=== PATIENT | female | born 1965 | race Two or more races ===

== ENCOUNTER 2017-04-08 16:51 | Inpatient (IN) | payer SELFPAY ==
--- NOTE | 2017-04-08 17:06 | CPEKG ---
Heart Rate: 78 RR Interval: 769 P-R Interval: 176 QRSD Interval: 92 QT Interval: 416 QTC Interval: 474 P [place]: 19 QRS [place]: 21 T Wave [place]: 70 EKG Severity - ABNORMAL ECG - EKG Impression: SINUS RHYTHM EKG Impression: PROBABLE LEFT ATRIAL ABNORMALITY EKG Impression: LVH WITH SECONDARY REPOLARIZATION ABNORMALITY EKG Impression: ANTERIOR ST ELEVATION, PROBABLY DUE TO LVH Electronically Signed By: Johnathan Murray 08-Apr-2017 19:01:20
[2017-04-08 17:09] LABS: % IMMATURE GRANULYOCYTES 0.3 % (0.0-1.1); ABSOLUTE IMMATURE GRANULOCYTES 0.03 10^3/uL (0.00-0.10); ADD DIFF? NO; ADD MORPH? NO; ADD SCAN? NO; ATYPICAL LYMPHOCYTE FLAG 0 (0-99); FRAGMENT RBC FLAG 0 (0-99); HEMATOCRIT 47.1 % (38.0-47.0); HEMOGLOBIN 15.3 g/dL (12.6-16.3); LEFT SHIFT FLG 0 (0-99); LIPEMIA HEMOLYSIS FLAG 80 (0-99); MEAN CELL HEMOGLOBIN 25.5 pg (27.9-34.1); MEAN CELL HEMOGLOBIN CONCENTR. 32.5 g/dL (32.4-36.7); MEAN CELL VOLUME 78.4 fL (81.5-99.8); MEAN PLATELET VOLUME 9.8 fL (8.7-11.7); PLATELET CLUMPS FLAG 10 (0-99); PLATELET COUNT 272 10^3/uL (150-400); RED BLOOD CELL COUNT 6.01 10^6/uL (4.18-5.33); RED CELL DISTRIBUTION WIDTH 16.1 % (11.5-15.2)
[2017-04-08] MEDS ORDERED: niCARdipine/NACL/200 ML BAG IV ONE (17:10)
[2017-04-08] MEDS: niCARdipine/NACL 200 ML IV SCH ×4 (17:22→21:54)
[2017-04-08 17:34] LABS: INR 0.92 (0.83-1.16); PROTIME(PATIENT) 12.6 SEC (12.0-15.0)
[2017-04-08] MEDS ORDERED: PROPOFOL/EMULSION 1,000 MG/100 ML BOTTLE IV ONE ×2 (17:34→18:29)
--- NOTE | 2017-04-08 17:38 | EDPHY ---
H & P Stated Complaint: stroke alert Time Seen by Provider: 04/08/17 17:00 HPI/ROS: CHIEF COMPLAINT: Stroke alert HISTORY OF PRESENT ILLNESS: The patient presents the ED as a stroke alert. She has a history of hypertension and does not take medications for this condition. Approximately 4:15pm the patient developed acute right facial numbness, right arm weakness and right leg weakness. She developed blurry vision according to her son. She then developed a severe headache and intractable vomiting. The patient is brought in emergently by paramedics. In the emergency department the patient arrives and is nonverbal. 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 REVIEW OF SYSTEMS: Comprehensive 10 point review of systems unobtainable Source: Patient, Family - Personal History LMP (Females 10-55): Unknown Current Tetanus/Diphtheria Vaccine: Unsure Current Tetanus Diphtheria and Acellular Pertussis (TDAP): Unsure - Medical/Surgical History Other PMH: HTN - Social History Smoking Status: Unknown if ever smoked - Physical Exam Exam: General Appearance: Sonorous respirations, arousable Eyes: Pupils equal and round no pallor or injection ENT, Mouth: Mucous membranes moist Respiratory: There are no retractions, lungs are clear to auscultation Cardiovascular: Regular rate and rhythm Gastrointestinal: Abdomen is soft and nontender, no masses, bowel sounds normal Neurological: Dense right meir paresis, follows commands, 5/5 digital press operator strength left arm, 5/5 left leg would not are flexion and dorsiflexion, unable to assess cranial nerves Skin: Warm and dry, no rashes Musculoskeletal: Neck is supple nontender Extremities: symmetrical, full range of motion Constitutional: Initial Vital Signs Temperature (C) 37.0 C 04/08/17 17:00 Heart Rate 86 04/08/17 17:00 Respiratory Rate 20 04/08/17 17:00 Blood Pressure 223/127 H 04/08/17 17:00 O2 Sat (%) 99 04/08/17 17:00 O2 Delivery Mode Ventilator O2 (L/minute) 10 Allergies/Adverse Reactions: No Known Allergies Allergy (Verified 04/08/17 17:00) Home Medications: Medication Instructions Recorded NK [No Known Home Meds] 04/08/17 Medical Decision Making - Diagnostics Imaging Results: Imaging Impressions Head CT 04/08/17 16:53 Impression: Large brainstem hemorrhage. Results called and discussed with Johnathan Murray M.D. on 04/08/2017 at 17:20. Procedures: Procedure: RSI Intubation Indication for the procedure was airway protection in the setting of massive stroke. The patient was preoxygenated with 100% oxygen by face mask. The patient was sedated with etomidate and paralyzed with succinylcholine. The patient was orally endotracheally intubated under direct visualization with a 7.5 ETT. Tracheal intubation was confirmed with misting on the tube; breath sounds were auscultated equally bilaterally; appropriate color change with [place] CO2 detector, capnography waveform is appropriate, oxygen saturation after procedure is 100%. Chest X-ray shows ETT in good position. The procedure was performed by myself. Procedure: Arterial line placement. Indication: Continuous blood pressure monitoring. Risks, benefits, alternatives discussed with the family including but not limited to bleeding, infection, vascular injury, and collapsed lung and consent obtained. The area was anesthetized with 1% lidocaine. Left radial artery arterial catheter was placed by myself without complication. ED Course/Re-evaluation: The patient presents to the ED with an acute headache, vomiting and a dense right meir paresis. She was taken for a stat CT scan which demonstrates a brain stream hemorrhage. The patient is not a candidate for thrombolytics therapy based upon intracranial hemorrhage. She return to the emergency department. Consultation was obtained with Neurosurgery. The patient was seen by Dr. Fercho Knight. Per his request the patient was intubated. The patient had an arterial catheter placed by myself for marked hypertension. She was started on a nicardipine drip. The patient will be admitted to the intensive care unit for further monitoring. She is not a surgical candidate. Consultation was made with Dr. Jc from the hospitalist service. Consultation was made with Dr. Machuca from neurology. Critical Care Time: Critical care time exclusive of procedures and exclusive of the PA's time was 65 minutes, performed by myself, Johnathan Murray MD. Patient presents the ED with a life-threatening intracranial hemorrhage. She required emergent control of her blood pressure. She required consultation of Neurosurgery, Neurology and Internal Medicine. She will be admitted to the ICU for close observation. - Data Points Laboratory Results: Laboratory Results 04/08/17 16:58 04/08/17 16:58 04/08/17 04/08/17 04/08/17 16:58 16:58 16:58 WBC 10.78 10^3/uL H 10^3/uL (3.80-9.50) RBC 6.01 10^6/uL H 10^6/uL (4.18-5.33) Hgb 15.3 g/dL g/dL (12.6-16.3) POC Hgb Hct 47.1 % H % (38.0-47.0) POC Hct MCV 78.4 fL L fL (81.5-99.8) MCH 25.5 pg L pg (27.9-34.1) MCHC 32.5 g/dL g/dL (32.4-36.7) RDW 16.1 % H % (11.5-15.2) Plt Count 272 10^3/uL 10^3/uL (150-400) MPV 9.8 fL fL (8.7-11.7) Neut % (Auto) 42.1 % % (39.3-74.2) Lymph % (Auto) 45.6 % H % (15.0-45.0) [place] % (Auto) 9.7 % % (4.5-13.0) Eos % (Auto) 1.9 % % (0.6-7.6) Baso % (Auto) 0.4 % % (0.3-1.7) Nucleat RBC Rel Count 0.0 % % (0.0-0.2) Absolute Neuts (auto) 4.54 10^3/uL 10^3/uL (1.70-6.50) Absolute Lymphs (auto) 4.92 10^3/uL H 10^3/uL (1.00-3.00) Absolute Monos (auto) 1.05 10^3/uL H 10^3/uL (0.30-0.80) Absolute Eos (auto) 0.20 10^3/uL 10^3/uL (0.03-0.40) Absolute Basos (auto) 0.04 10^3/uL 10^3/uL (0.02-0.10) Absolute Nucleated RBC 0.00 10^3/uL 10^3/uL (0-0.01) Immature Gran % 0.3 % % (0.0-1.1) Immature Gran # 0.03 10^3/uL 10^3/uL (0.00-0.10) PT 12.6 SEC SEC (12.0-15.0) INR 0.92 (0.83-1.16) POC Sodium Sodium 143 mEq/L mEq/L (134-144) POC Potassium Potassium 3.2 mEq/L L mEq/L (3.5-5.2) POC Chloride Chloride 102 mEq/L mEq/L (97-110) Carbon Dioxide 25 mEq/l mEq/l (22-31) Anion Gap 16 mEq/L mEq/L (8-16) POC BUN BUN 13 mg/dL mg/dL (7-23) Creatinine 0.7 mg/dL mg/dL (0.6-1.0) POC Creatinine Estimated GFR > 60 Glucose 105 mg/dL H mg/dL (70-100) POC Glucose Calcium 9.7 mg/dL mg/dL (8.5-10.4) 04/08/17 16:49 WBC RBC Hgb POC Hgb 16.7 gm/dL H gm/dL (12.6-16.3) Hct POC Hct 49 % H % (38-47) MCV MCH MCHC RDW Plt Count MPV Neut % (Auto) Lymph % (Auto) [place] % (Auto) Eos % (Auto) Baso % (Auto) Nucleat RBC Rel Count Absolute Neuts (auto) Absolute Lymphs (auto) Absolute Monos (auto) Absolute Eos (auto) Absolute Basos (auto) Absolute Nucleated RBC Immature Gran % Immature Gran # PT INR POC Sodium 144 mEq/L mEq/L (134-144) Sodium POC Potassium 2.7 mEq/L L* mEq/L (3.3-5.0) Potassium POC Chloride 105 mEq/L mEq/L (97-110) Chloride Carbon Dioxide Anion Gap POC BUN 12 mg/dL mg/dL (7-23) BUN Creatinine POC Creatinine 0.6 mg/dL mg/dL (0.6-1.0) Estimated GFR Glucose POC Glucose 109 mg/dL H mg/dL (70-100) Calcium Medications Given: Nicardipine/Sodium Chloride (Cardene 0.1 Mg/Ml (Premix)) 200 mls @ 0 mls/hr IV CONT VIANEY; Titrate PRN Reason: Protocol Stop: 10/05/17 17:29 Last Admin: 04/08/17 18:44 Dose: 200 mls Propofol (Diprivan 10 Mg/Ml (Premix)) 100 mls @ 0 mls/hr IV CONT VIANEY; Titrate PRN Reason: Protocol Stop: 10/05/17 18:29 Last Admin: 04/08/17 18:32 Dose: 100 mls Discontinued Medications Etomidate (Etomidate) 20 mg IVP EDNOW ONE Stop: 04/08/17 18:13 Last Admin: 04/08/17 18:22 Dose: 20 mg Propofol (Diprivan) 40 mg IVP EDNOW ONE Stop: 04/08/17 18:31 Last Admin: 04/08/17 18:33 Dose: 40 mg Succinylcholine Chloride (Quelicin) 150 mg IVP EDNOW ONE Stop: 04/08/17 18:13 Last Admin: 04/08/17 18:23 Dose: 150 mg Succinylcholine Chloride (Quelicin) 100 mg IVP ONCE ONE Stop: 04/08/17 18:37 Last Admin: 04/08/17 18:40 Dose: 100 mg Point of Care Test Results: 04/08/17 16:49 POC Sodium 144 POC Potassium 2.7 L* POC Chloride 105 POC BUN 12 POC Creatinine 0.6 POC Glucose 109 H Departure - Departure Disposition: [facility] Inpatient Acute Clinical Impression: Acute cerebral hemorrhage Condition: Critical Referrals: Patient,NotPresent [Primary Care Provider] - As per Instructions NIH Stroke Scale Date of Exam: 04/08/17 Time of Exam: 17:08 Level of Consciousness: Alert LOC Questions: Answers None LOC Commands: Performes Neither Correct Best Gaze: Forced Deviation Motor Arm-Right: No Movement Motor Leg-Right: No Movement Best Language: Severe Aphasia Dysarthria: Severe Dysarthria Extinction and Inattention (Neglect): Profound Meir-inattention NIH Scale Score: 20
[2017-04-08 18:01] LABS: ANION GAP 16 mEq/L (8-16); CALCIUM 9.7 mg/dL (8.5-10.4); CARBON DIOXIDE 25 mEq/l (22-31); CHLORIDE 102 mEq/L (97-110); CREATININE 0.7 mg/dL (0.6-1.0); GLOMERULAR FILTRATION RATE > 60; GLUCOSE 105 mg/dL (70-100); POTASSIUM 3.2 mEq/L (3.5-5.2); SODIUM 143 mEq/L (134-144)
[2017-04-08] MEDS ORDERED: SUCCINYLCHOLINE CHLORIDE 200 MG/10 ML VIAL IVP ONE ×2 (18:12→18:36)
[2017-04-08] MEDS ORDERED: ETOMIDATE 40 MG/20 ML INJ IVP ONE (18:12)
[2017-04-08] MEDS ORDERED: PROPOFOL 200 MG/20 ML VIAL IVP ONE (18:30)
[2017-04-08] MEDS ORDERED: PROPOFOL/EMULSION 100 ML IV SCH ×2 (18:30→20:09)
[2017-04-08] MEDS ORDERED: SUCCINYLCHOLINE CHLORIDE 200 MG/10 ML SYR IVP ONE (18:35)
[2017-04-08] MEDS ORDERED: ALTEPLASE 2 MG VIAL IVP PRN (18:45)
[2017-04-08] MEDS: LABETALOL HCL 5 MG/ML 20 ML MDV IVP PRN (19:45)
[2017-04-08 20:12] LABS: BASE EXCESS -2.9 mEq/L (-2.5-2.5); BICARBONATE 22 mEq/L (22-26); MEASURED OXYGEN SATURATION 96 % (92-95); PCO2 39 mmHg (34-38); PO2 89 mmHg (65-75); TCO2 23 mEq/L (23-27)
[2017-04-08 20:13] LABS: END TIDAL CO2 62; P/F RATIO 223 RATIO; PATIENT RATE 24; PRESSURE SUPPORT 10; SIMV YES
[2017-04-08 20:14] LABS: O2 CONCENTRATIION 40 % (0-100)
--- NOTE | 2017-04-08 20:21 | GHP ---
[f rep st] HISTORY AND PHYSICAL DATE OF ADMISSION: 04/08/2017 CHIEF COMPLAINT: The patient arrived as a stroke alert. HISTORY OF PRESENT ILLNESS: The patient is a 51-year-old female with a history of hypertension, not currently on antihypertensive medication, presented to the emergency department via EMS after developing sudden right facial numbness and right upper and lower extremity weakness. The onset of her symptoms was at 4: 15 p.m. She also reported blurred vision followed by severe headache with repeated vomiting. When the patient arrived in the emergency department, she was nonverbal though did follow some basic commands. She was noted to have a dense right hemiparesis. Her condition deteriorated, she was no longer able to protect her airway and was thus intubated. Her blood pressure on arrival was 223/127. Stat CT head was performed, which revealed a large brainstem hemorrhage. She was started on a nicardipine drip in the emergency department. Neurosurgery consultation was obtained and evaluated the patient in the ED. She is admitted to the intensive care unit for ongoing management. PAST MEDICAL HISTORY: Hypertension. MEDICATIONS: None. ALLERGIES: No known drug allergies. SOCIAL HISTORY: The patient was previously living independently with her daughter. Her tobacco and alcohol habits are unknown as she is intubated at the time of my exam. REVIEW OF SYSTEMS: Unobtainable due to patient being intubated. PHYSICAL EXAMINATION: VITAL SIGNS: Temperature on arrival was 37 degrees, current blood pressure 148/85, heart rate 103, she is ventilated 100% FiO2. HEENT: Head is atraumatic, normocephalic. Pupils are equal, round, and reactive. Oropharynx is clear. Mucous membranes are moist. NECK: Supple. There is no JVD. HEART: Regular rate and rhythm. LUNGS: Clear to auscultation bilaterally. ABDOMEN: Soft, nondistended, nontender. NEUROLOGIC : The patient does not follow commands. She is not moving her extremities, though she is sedated, intubated, and ventilated. Please see emergency department documentation for her neuro exam on arrival prior to intubation. SKIN: Warm. EXTREMITIES: Well perfused without cyanosis, clubbing, or edema. LABORATORY DATA: CBC reveals a white blood cell count of 10.7, hematocrit 47.1 , platelets 272. INR 0.92. Basic metabolic panel is remarkable for a potassium of 3.2, blood sugar 105. Head CT shows a large brainstem hemorrhage resulting in expansion of the brainstem and extension of the hemorrhage into the left cerebellar peduncle. No significant subarachnoid blood. There is effacement of the cerebral aqueduct. There is evidence of small vessel disease and a probable lacunar type infarct in the right basal ganglia. The brainstem hemorrhage results in enlargement of the brainstem with associated effacement of the perimesencephalic cisterns. EKG shows normal sinus rhythm with probable left ventricular hypertrophy, ST elevations in V1, V2, may represent J-point elevation versus repolarization abnormality from LVH. Chest x-ray is personally reviewed and interpreted, shows an ET tube just above the heber, with low lung volumes and increased interstitial markings. ASSESSMENT AND PLAN: The patient is a 51-year-old female with a history of hypertension, which is not treated with medications, who presents to the emergency department with hemorrhagic stroke requiring intubation and mechanical ventilation. 1. Intracranial hemorrhage: NIHSS 20. Most likely hemorrhagic stroke in the setting of severe untreated hypertension. She is intubated and ventilated. Will check an ABG now. She presented with dense right-sided hemiparesis, aphasia, severe headache with vomiting. Urgent consultation with Neurosurgery was made. She is not a surgical candidate. Continue nicardipine drip with a goal SBP less than 140. I discussed the case with Dr. Enriquez, neurosurgeon. Will repeat her head CT at 9 p.m. along with CTA head and neck to be sure this is not a hemorrhagic conversion, though unlikely. The patient is at risk for developing hydrocephalus. MRI is ordered for the morning. Neurology consult was obtained and Dr. Machuca will see the patient. Frequent neuro checks, NPO, IVF 's. I discussed her poor prognosis with the family. 2. Hypertension, as above. Goal SBP is less than 140 per neurosurgery recommendations in the setting of intracerebral hemorrhage. Continue nicardipine drip. 3. Abnormal EKG. She has cardiomegaly on her chest x-ray and evidence of LVH on her EKG. We will check an echocardiogram in the morning and trend her troponins. 4. Deep venous thrombosis prophylaxis: Pharmacologic therapy is contraindicated in the setting of intracerebral hemorrhage. SCD's. CODE STATUS: Patient is full code. The family understands her condition is guarded and we may need to revisit her code status if she deteriorates. DISPOSITION: The patient is admitted to inpatient status. She will require greater than 48 hours hospitalization for ongoing management of her acute hemorrhagic stroke. 45 minutes of critical care time was spent [id number] at the bedside and coordinating care with specialists and emergency department physician, as well as discussion with family. /[id number]/MODL MTDD
[2017-04-08] MEDS: fentaNYL/NACL 100 ML IV SCH (20:25)
[2017-04-08] MEDS ORDERED: LIDOCAINE 2% JELLY 20 ML (UROJECT) ONE (20:33)
[2017-04-08] MEDS ORDERED: LIDOCAINE 2% JELLY 5 ML TUBE ONE (20:34)
[2017-04-08] MEDS ORDERED: IOPAMIDOL (ISOVUE 370) 100 ML BTL IV ONE (20:45)
--- NOTE | 2017-04-08 21:00 | POSTOPPROG ---
Post Op Note Date of Operation: 04/08/17 Surgeon: Leo Phelps Anesthesia: Local (Specify) (1% lidocaine) Pre-op Diagnosis: hemorragic CVA of brainstem Post-op Diagnosis: hemorragic CVA of brainstem Indication: inadequate venous access Procedure: placement of right subclavian triple lumen central line Findings: hemorragic CVA of brainstem Inf/Abcess present in the surg proc area at time of surgery?: No EBL: Minimal Total fluids administered: 500 cc bolus pre proceedure Complications: None. Line in good position on post procedure film without PTX
[2017-04-08] MEDS: NS W/ 20 KCl/L 1,000 ML IV SCH (21:49)
--- NOTE | 2017-04-08 21:56 | GCON ---
[f rep st] CONSULTATION HISTORY OF PRESENT ILLNESS: The patient is a 51-year-old female, who began to have sudden onset of r ight-sided weakness this afternoon about 2:00 p.m. Paramedics were called and she was brought immedi ately to the hospital. At the time of presentation to the hospital she was aphasic and only followin g some commands. The patient was given a head CT that showed spontaneous intracranial hemorrhage int o the brain stem. Per family, the patient does not normally see a doctor and has no past medical his tory that she is being treated for. PAST MEDICAL HISTORY: Includes hypertension. PAST SURGICAL HISTORY: No prior surgeries known. SOCIAL HISTORY: Patient lives with her daughter. Patient is actively employed. MEDICATIONS: Patient takes no daily medications. ALLERGIES: The patient has no known drug allergies. REVIEW OF SYSTEMS: Patient is unable to provide. NEUROLOGICAL PHYSICAL EXAM: Patient is alert, she opens her eyes spontaneously. She is not speaking . She flexion withdraws from pain and possibly follows some commands. GCS 9 or 10. The patient's p upils were equally reactive to light. She is not moving her right upper extremity. She voluntarily moves her bilateral lower extremities and her left upper extremity. Gag and cough reflex intact. LABS: Pertinent labs: Patient's platelets 272. Coags were PT 12.6, INR 0.92, normal. IMAGING: Head CT with a focal brainstem bleed and extension of the brainstem hemorrhage extending in to the left cerebellar peduncle. ASSESSMENT/PLAN: The patient is a 51-year-old female with untreated hypertension, systolic blood pre ssure 190 to 220 during the time of exam who presents with a spontaneous brainstem hemorrhage likely due to the hypertension. The patient's exam is quite good given the bleed. She is currently aphasic and not moving her right upper extremity and only following some commands. Neurosurgery recommends s trict systolic blood pressure control of less than 140, elevating the head greater than 30 degrees, c oag panels which were negative and intubation for possible protection of the airway as we anticipate as bleed progresses she may have difficulty with her airway. We recommend a repeat scan 4 hours after initial scan later this evening and we will continue to follow along. The patient will be admitted to the medicine service for control of her blood pressure. The patient was seen and discussed with Irene Knight. /[id number]/MODL
[2017-04-08] MEDS ORDERED: PROTOCOL POTASSIUM 1 DOSE MISC PRN (23:10)
[2017-04-08] MEDS ORDERED: PROTOCOL MAGNESIUM 1 DOSE IV PRN (23:10)
[2017-04-09 00:54] LABS: POTASSIUM 4.3 mEq/L (3.5-5.2)
[2017-04-09] MEDS: niCARdipine/NACL 200 ML IV SCH ×8 (01:23→22:32)
[2017-04-09] MEDS ORDERED: ETOMIDATE 40 MG/20 ML INJ ONE (02:01)
[2017-04-09 02:18] LABS: BASE EXCESS -4.8 mEq/L (-2.5-2.5); BICARBONATE 21 mEq/L (22-26); MEASURED OXYGEN SATURATION 97 % (92-95); PCO2 41 mmHg (34-38); PO2 94 mmHg (65-75); TCO2 22 mEq/L (23-27)
[2017-04-09 02:19] LABS: END TIDAL CO2 49; O2 CONCENTRATIION 40 % (0-100); P/F RATIO 235 RATIO; PATIENT RATE 14; PRESSURE SUPPORT 10
[2017-04-09 02:40] LABS: TROPONIN I 0.255 ng/mL (0.000-0.034)
--- NOTE | 2017-04-09 03:27 | GOP ---
[f rep st] OPERATIVE REPORT DATE OF OPERATION: 04/08/2017 SURGEON: Leo Phelps MD PREOPERATIVE DIAGNOSIS: Inadequate venous access for medications and vasoactive medications. POSTOPERATIVE DIAGNOSIS: Inadequate venous access for medications and vasoactive medications. PROCEDURE PERFORMED: Placement of a right subclavian central line. FINDINGS: Inadequate venous access for medications and vasoactive medications. INDICATIONS: Inadequate venous access for medications and vasoactive medications. DESCRIPTION OF PROCEDURE: The patient was currently intubated, so I spoke with her proxy who was her son. He gave consent for the procedure. A surgical time-out was carried out and agreed to by all m embers of the ICU team. The patient has been given a 500 cc normal saline bolus. Checking with a Do ppler, subclavian vein was full and should be easy to access. The patient's right chest and neck were carefully prepped with ChloraPrep. A 3-minute drying time wa s allowed. The skin was anesthetized with 1% Xylocaine. Second site for suturing the hub of the triple-lumen in place was also anesthetized. The patient was now placed in steep Trendelenburg. A 1st pass was slightly superficial and I did not enter the vein. A 2nd pass was slightly deeper and entered the vein immediately. The bevel was rot ated so drug was directed inferiorly. The guidewire passed without difficulty. Transient ectopy was noted. Guidewire was pulled back slightly. The needle was removed over the guidewire. The skin wa s carefully incised. A dilator was passed without difficulty. The preflushed triple-lumen catheter was now advanced over the guidewire. The blue and white hubs had been flushed. It was advanced to t he 13 cm stacy. The guidewire was removed. Venous return was noted. The hub was placed in the 3rd ( brown) lumen and was flushed with a small amount of lidocaine which was in an anesthetizing syringe. The triple-lumen was sutured in place. The hub was also sutured in place. A Biopatch was positioned . A Tegaderm was used. Chest x-ray was obtained which showed the line to be in good position. It also showed that there was no pneumothorax. The previously placed orogastric tube was curled in the proximal esophagus. An 18-Dominican orogastric tube was now passed. An x-ray will be obtained for confirmation of position. Good gurgling was note d in the stomach with installation of air. /[id number]/MODL
[2017-04-09] MEDS: NS W/ 20 KCl/L 1,000 ML IV SCH ×2 (04:50→10:07)
[2017-04-09 05:11] LABS: BASE EXCESS -4.1 mEq/L (-2.5-2.5); BICARBONATE 20 mEq/L (22-26); MEASURED OXYGEN SATURATION 98 % (92-95); PCO2 34 mmHg (34-38); PO2 110 mmHg (65-75); TCO2 21 mEq/L (23-27)
[2017-04-09 05:12] LABS: O2 CONCENTRATIION 40 % (0-100); P/F RATIO 275 RATIO; PATIENT RATE 16; PRESSURE SUPPORT 10; SIMV YES
[2017-04-09 05:14] LABS: % IMMATURE GRANULYOCYTES 0.2 % (0.0-1.1); ABSOLUTE IMMATURE GRANULOCYTES 0.02 10^3/uL (0.00-0.10); ADD DIFF? NO; ADD MORPH? NO; ADD SCAN? NO; ATYPICAL LYMPHOCYTE FLAG 0 (0-99); FRAGMENT RBC FLAG 0 (0-99); HEMATOCRIT 38.2 % (38.0-47.0); HEMOGLOBIN 12.4 g/dL (12.6-16.3); LEFT SHIFT FLG 0 (0-99); LIPEMIA HEMOLYSIS FLAG 80 (0-99); MEAN CELL HEMOGLOBIN 25.5 pg (27.9-34.1); MEAN CELL HEMOGLOBIN CONCENTR. 32.5 g/dL (32.4-36.7); MEAN CELL VOLUME 78.6 fL (81.5-99.8); MEAN PLATELET VOLUME 9.9 fL (8.7-11.7); PLATELET CLUMPS FLAG 0 (0-99); PLATELET COUNT 223 10^3/uL (150-400); RED BLOOD CELL COUNT 4.86 10^6/uL (4.18-5.33); RED CELL DISTRIBUTION WIDTH 15.6 % (11.5-15.2)
[2017-04-09 05:31] LABS: ANION GAP 14 mEq/L (8-16); CALCIUM 8.3 mg/dL (8.5-10.4); CARBON DIOXIDE 20 mEq/l (22-31); CHLORIDE 111 mEq/L (97-110); CREATININE 0.8 mg/dL (0.6-1.0); GLOMERULAR FILTRATION RATE > 60; GLUCOSE 118 mg/dL (70-100); MAGNESIUM 1.9 mg/dL (1.6-2.3); POTASSIUM 4.5 mEq/L (3.5-5.2); SODIUM 145 mEq/L (134-144)
--- NOTE | 2017-04-09 07:18 | NEUSURGPN ---
Assessment/Plan: Assessment: 51 yo female that is admitted to IM with HTN and ICB to brainstem Plan: -pt with initial presentation of elevated blood pressures in the 180-220 range with a brain stem bleed -CT initially to 2nd CT shows some progression of bleed -no new events overnight -continue to keep SBP less than 140 -elevate HOB -pt moving more this am -intubated and sedated -following commands to UE/LE and will open eyes spontaneously to verbal -d/w Dr Knight -pending MRI of the brain today -will get repeat CT in am -warning signs given -call with any questions or concerns Subjective: Awake to verbal, no new events overnight. Pt with some recent elevated SBP-RN working on controlling this with Cardene. Family updated at bedside Objective: awake and alert to verbal follows commands with opens eyes, carpenter/labor bilaterally with L>R, wiggles toes bilaterally with L>R E: OU 4 mm reactive M: carpenter/labor to UE/wiggles toes V: nonverbal-intubated Neuro Check Frequency: per ordered Urinary Catheter in Place: Yes Urinary Catheter Indication: Other (Use Comment) (intubated and sedated) Catheter Insertion Date: 04/08/17 - Physician Discussed Patient with DrGabriel: Other Patient Seen by Dr.: Other ([place]) Neurosurgery Physical Exam - Vitals, I&O, Labs I and O 04/08/17 04/09/17 04/10/17 05:59 05:59 05:59 Intake Total 2629 Output Total 1150 Balance 1479 Weight 94.8 kg Intake: IV Infused (ml) 2629 NS W/ 20 KCl/L 1,000 ml @ 1272 125 mls/hr IV CONT VIANEY Rx#:[id number] Propofol/Emulsion 100 ml 150 @ Titrate IV CONT VIANEY Rx# :[id number] fentaNYL/NACL 100 ml @ 52 Per Protocol IV CONT VIANEY Rx#:[id number] niCARdipine/NACL 200 ml @ 955 Titrate IV CONT VIANEY Rx#: [id number] Output: Urine (ml) 950 Catheter 950 OG Tube Output (ml) 200 Large Bore (>12 Yemeni) 200 Non-weighted 18 [place] Vital Signs Temp Pulse Resp BP Pulse Ox 36.6 C 70 16 135/58 H 100 04/09/17 06:00 04/09/17 06:00 04/09/17 06:00 04/09/17 06:00 04/09/17 06:00 Laboratory Results 04/09/17 05:00 04/09/17 05:00 ICD10 Worksheet Patient Problems: Problems Problem Status Onset Acute cerebral hemorrhage Acute
[2017-04-09] MEDS: fentaNYL/NACL 100 ML IV SCH (08:00)
--- NOTE | 2017-04-09 09:06 | PDMN ---
Medical Necessity Medical necessity: M85 hemorrhagic stroke: acute stroke
--- NOTE | 2017-04-09 10:36 | NEUROPROG ---
Assessment: [id number] CC: Dr. Leigha Jc of the hospitalist service consulted neurology for intracerebral hemorrhage. Results placed in the EMR for her review. HPI: On 04/08/17 pt developed acute right sided weakness and right facial numbness as well as severe headache, N/V, which progressed to loss of speech. Pt brought to [facility] ER where a head CT showed a brainstem bleed. She was intubated. Neurosurgery saw her and did not recommend surgery. BP on arrival was 223/127. She was admitted to the ICU. I saw her on 04/09/17. PMHx: HTN Home Meds: none SHx: living with daughter FHx: daughter alive ROS: Pt denied acute fever, total vision loss, active severe chest pain, respiratory failure, total body severe rash, total bowel/bladder incontinence, psychosis, active seizures, or active bleeding O: VS reviewed General: intubated but awake and drowsy Eyes: Fundoscopic exam not able to visualize optic disks CV: Heart RRR, no murmur, no carotid bruit Lungs: Clear to auscultation bilaterally, no rhonci or rales Neuro: - Mental: . intubated so could not perform mental status testing other than having her follow 1 step commands intermittently - Cranial Nerves: . II: PERRL . III/IV/: could not test due to drowsiness . V: could not test due to drowsiness . VII: no overt weakness seen but pt intubated complicating testing . VIII: hearing intact to conversation . IX/X: intubated . XI: intubated . XII: intubated - Motor: . Tone: normal tone in all 4 extrem . 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 Hypertensive Brainstem Intracerebral Hemorrhage on 04/08/17 2. HTN Plan: - blood pressure per neurosurgery recommendations of < SBP 140 - Brain MRI w/ and w/o con to ensure no underlying ischemic stroke - hold antiplatelet and anticoagulation, restart date deferred to neurosurgery - DVT prophy with SCDs - PT/OT/Speech when patient can participate with these services Objective: Vital Signs Temp Pulse Resp BP Pulse Ox 37.1 C 93 18 159/65 H 99 04/09/17 10:00 04/09/17 10:00 04/09/17 10:00 04/09/17 10:00 04/09/17 10:00 Laboratory Results 04/09/17 05:00 04/09/17 05:00 04/08/17 04/09/17 04/10/17 05:59 05:59 05:59 Intake Total 2629 Output Total 1150 Balance 1479 PT 12.6 SEC (12.0-15.0) 04/08/17 16:58 INR 0.92 (0.83-1.16) 04/08/17 16:58 Allergies/Adverse Reactions: No Known Allergies Allergy (Verified 04/08/17 17:00)
--- NOTE | 2017-04-09 11:17 | ECHO ---
[email or web address] [address] [address] Main: [phone] Fax: Transthoracic Echocardiogram Name: JENNIFER FARIAS MR#: [id number] Study Date: 04/09/2017 Study Time: 07:46 AM Date of : 1965 Age: 51 year(s) Height: 152.4 cm (60 in.) Weight: 95 kg (209.44 lb.) BSA: 1.9 m2 Gender: Female Examination: Echo Indication: HTN Image Quality: Contrast: Requested by: Leigha Jc BP: 147 mmHg/65 mmHg Heart Rate: Rhythm: Indication: HTN Procedure Staff Face Man: Nahomi Lo Reading Physician: Umang Lerner Requesting Provider: Conclusions: Mild to moderate LVH. Global hypercontractility of the left ventricle. EF is 72 %. No regional wall motion abnormality. Normal size right ventricle. The left atirum is borderline dilated. Trivial mitral valve regurgitation. AV max PG is 16mmHG. AV mean PG is 8mmHG.. The tricuspid valve is normal in appearance and function. Measurements: Chambers Valvular Assessment AV/MV Valvular Assessment TV/PV Normal Normal Normal Name Value Range Name Value Range Name Value Range Ao Rosaura (MM): 2.7 cm (2.2 cm-3.7 AV meanP mmHg ( - ) cm) MV E Vmax: 0.93 m/s ( - ) LVDd (2D): 4.5 cm (3.9 cm-5.3 MV A Vmax: 1.10 m/s ( - ) cm) MV E/A: 0.85 ( - ) LVEF (MOD4): 72 % (>=55 %) Continued Measurements: Chambers Valvular Assessment AV/MV Name Value Name Value LADs: 3.9 cm MV E' Septal: 0.06 m/s LADs Lon.3 cm MV E/E' Septal: 14.40 LA Area: 19.4 cm2 MV E/E' Lateral: 13.60 Patient: JENNIFER FARIAS Study Date: 04/09/2017 Page 1 of 2 07:46 AM Findings: Left Ventricle: Normal size left ventricle. Mild to moderate LVH. Global hypercontractility of the left ventricle. EF is 72 %. No regional wall motion abnormality. Right Ventricle: Normal size right ventricle. Left Atrium: The left atirum is borderline dilated. Right Atrium: The right atrium is normal in size. Mitral Valve: The mitral valve is normal in appearance and function. Trivial mitral valve regurgitation. Aortic Valve: AV max PG is 16mmHG. AV mean PG is 8mmHG.. Tricuspid Valve: The tricuspid valve is normal in appearance and function. Pulmonic Valve: Pulmonary valve not well visualized. Aorta: The aorta is normal. Pericardium: No pericardial effusion. (No Signature Object) Patient: JENNIFER FARIAS Study Date: 04/09/2017 Page 2 of 2 07:46 AM [id number]
--- NOTE | 2017-04-09 13:25 | HOSPPROG ---
Hospitalist Progress Note Assessment/Plan: New patient encounter 51 yo female with untreated HTN admitted for intracranial hemorrhage. Some improvement in neuro exam overnight. Can follows some commands. Denies CP Tele: NSR #Intracranial Brainstem Hemorrhage -Not a surgical candidate -NS following #Acute respiratory failure, Vent for protection #HTN, mgmt per NS #Abnormal EKG (Slight ST elevation in Anterior Leads) and elevated troponin 0.255 -Denies CP -TTE c/w global hypercontractility. No wall abnormalities. LVER 72% Plan: -BP mgmt per Neuro surgery. Goal BP is less than 140mmHg -Vent mgmt per pulm -Will check Trop and EKG. If abnormal, then Cards consult -Check Lipid panel, A1C -D/w pt's family at bedside -D/w multidisciplinary round team -SCD's -Hold off on Antiplatelet therapy -Neuro following total critical care time is 35 minutes Subjective: Following some commands. Denies CP. Can move LUE. Objective: Vital Signs Temp Pulse Resp BP Pulse Ox 37.4 C 83 21 H 115/56 L 99 04/09/17 13:00 04/09/17 13:00 04/09/17 13:00 04/09/17 13:00 04/09/17 13:00 Laboratory Results 04/09/17 05:00 04/09/17 05:00 04/08/17 04/09/17 04/10/17 05:59 05:59 05:59 Intake Total 2629 Output Total 1150 Balance 1479 PT 12.6 SEC (12.0-15.0) 04/08/17 16:58 INR 0.92 (0.83-1.16) 04/08/17 16:58 - Physical Exam Constitutional: no apparent distress Eyes: PERRL Ears, Nose, Mouth, Throat: moist mucous membranes Cardiovascular: regular rate and rhythym, No edema Respiratory: no respiratory distress, reduced air movement Gastrointestinal: normoactive bowel sounds, soft, non-tender abdomen Skin: warm Neurologic: other (awake) Psychiatric: No agitated Lymph, Heme, Immunologic: no cervical LAD ICD10 Worksheet Patient Problems: Problems Problem Status Onset Acute cerebral hemorrhage Acute
[2017-04-09] MEDS: POTASSIUM Cl (KCl) 20 MEQ in 1/2 NS 1,000 ML IV SCH ×2 (13:31→22:32)
[2017-04-09 14:14] LABS: POTASSIUM 4.1 mEq/L (3.5-5.2)
--- NOTE | 2017-04-09 14:33 | ASMTCASEMG ---
Living Arrangements What is your living Answers: With Spouse arrangement? Who do you live with? Type Of Residence What kind of residence do Answers: House you live in? Discharge Plan Comments Coordination Status Comments Notes: Patient is a 51yo female who presented to the ED with right facial numbness and right upper and lower extremity weakness. Patient was admitted to the hospital for hemorrhagic stroke. Patient is not a surgical candidate. She has had some improvement overnight. PT/OT/SPL/Inpat rehab have all been ordered. D/C needs TBD. CM will follow. Date Signed: 04/09/2017 02:33 PM Electronically Signed By:Aggie Amador LCSW
--- NOTE | 2017-04-09 14:56 | CPEKG ---
Heart Rate: 87 RR Interval: 690 P-R Interval: 140 QRSD Interval: 84 QT Interval: 416 QTC Interval: 501 P [place]: 12 QRS [place]: 32 T Wave [place]: 80 EKG Severity - BORDERLINE ECG - EKG Impression: SINUS RHYTHM EKG Impression: BORDERLINE PROLONGED QT INTERVAL Electronically Signed By: Canelo Fernandez 09-Apr-2017 23:13:03
--- NOTE | 2017-04-09 15:35 | GCON ---
[f rep st] CONSULTATION PULMONARY/CRITICAL CARE CONSULTATION DATE OF CONSULTATION: 04/09/2017 REFERRING PHYSICIAN: Leigha Jc MD REASON FOR REFERRAL: Evaluation and management of hypertension and intracranial hemorrhage. HISTORY: The patient is a 51-year-old woman with a history of untreated hypertension, who presented to the emergency department yesterday with a sudden onset of facial numbness and right-sided weakness . Her symptoms started about 4:15 p.m. She also had headaches, vomiting, and blurred vision. She w as nonverbal, but could follow commands. While in the emergency department, she had difficulty prote cting her airway and so was intubated. A CT scan of the head, showed a large pontine hemorrhage. [place] was started on nicardipine drip due to a blood pressure of 223/127. Surgery was consulted, but fel t there was no surgical treatment indicated. She has been in the ICU on a nicardipine drip for manag ement of her blood pressure. She has had some improved neurologic function today, more able to follo w commands on the left side, and with increasing strength. She has a strong cough and minimal secret ions. PAST MEDICAL HISTORY: Hypertension. MEDICATIONS: None. SOCIAL HISTORY: The patient lives independently with her daughter. FAMILY HISTORY: Unobtainable. REVIEW OF SYSTEMS: Unobtainable. PHYSICAL EXAMINATION: GENERAL: The patient is somnolent, but arousable. She is able to follow simp le commands and nods appropriately, but is somewhat inconsistent in her responses. VITAL SIGNS: Blo od pressure is 163/68 by arterial line; but her systolic is about 40 points lower on a cuff blood pre ssure, heart rate is 93, oxygen saturations are 98% on 40% oxygen. HEENT: She is normocephalic and atraumatic. No icterus. NECK: No adenopathy. Trachea is midline. CHEST: Clear to auscultation. CARDIAC: Regular rate and rhythm without murmur. ABDOMEN: Soft, nontender. Bowel sounds are pres ent. EXTREMITIES: No clubbing, cyanosis, or edema. NEURO: The patient is able to follow some simp le commands, but is somewhat inconsistent. She has good strength on the left side, but paresis on th e right side. LABORATORY: Sodium is 145, troponin is 0.25, glucose is 113. White blood count is 10.3, with a hemo globin of 12.4, platelet count is 223. Arterial blood gas shows a pH of 7.38, with a pO2 of 110, a C O2 of 34, and a bicarbonate of 20 on IMV with a rate of 16, tidal volume of 500, 40% oxygen, with PEE P of 5. A CT scan of the head shows an acute pontine hemorrhage with mass effect; images reviewed by me. A chest x-ray shows possible congestive heart failure; images reviewed. An echocardiogram show s a normal ejection fraction of 72% with global hypocontractility. ASSESSMENT: 1. Acute pontine hemorrhagic cerebrovascular accident. The patient was comatose earlier, but has st arted to have some increased responsiveness. Sedation has been stopped and she is able to follow jael e simple commands. 2. Hypertension. The patient continues to have hypertension by the arterial line while on nicardipi ne, but her cuff pressure is normal, with a goal systolic blood pressure of less than 140. 3. Obesity. Her BMI is 40.8. RECOMMENDATIONS: 1. Continue to hold sedation. 2. Extubate. 3. Remove arterial line and use cuff pressure to follow her blood pressure, adjusting nicardipine as needed. /[id number]/MODL
--- NOTE | 2017-04-09 16:55 | GCON ---
[f rep st] CONSULTATION DATE OF CONSULTATION: 04/09/2017 HISTORY OF PRESENT ILLNESS: The patient is 51-year-old woman who was well until yesterday afternoon when she became confused. She was dizzy and then she could not feel her left side and then she became unconscious at home. They called 911. She was brought in. She has not been very responsive since that time. She has no chest pain or jaw pain. She had a headache She came in complaining of some blurred vision and severe headache, and there were multiple episodes of vomiting. She was nonverbal when she got to the hospital and had a dense right hemiparesis. She has a very large brainstem hemorrhage and her blood pressure was high at 223 /127. She was wput on a nicardipine drip. Neurosurgery has seen her. The Neurology Service has seen her, and she is slowly lightening up somewhat. CARDIAC RISK FACTORS: Positive for obesity and smoking. She has cardiac risk factors positive for hypertension. Cardiac risk factors are negative for family history of premature coronary artery disease, known coronary artery disease, hyperuricemia, hyperlipidemia, or diabetes mellitus. REVIEW OF SYSTEMS: A 12-point review of systems is negative except for the hypertension as noted above and obesity. MEDICATIONS: She takes no medications at home. ALLERGIES: None. FAMILY HISTORY: She has no family history of premature coronary disease. No history of unexplained sudden at a young age. SOCIAL HISTORY: She lives with her daughter who is here with her. She does use cigarettes on a regular basis. She does not drink significant amounts of alcohol. She is not big on exercising, and she is markedly overweight. PHYSICAL EXAMINATION: VITAL SIGNS: Her blood pressure when she got to the hospital was 148/85; temperature was 37. Her initial blood pressure in the hospital was 223/127. She was intubated. Her heart rate was 103. NECK: Supple. CARDIOVASCULAR: S1, S2. Soft systolic murmur at the left sternal border. No diastolic murmur. No S3, S4. No rubs. PULMONARY: Rhonchi bilaterally. No rales, wheezing, or dullness. ABDOMEN: Soft, nontender, without masses. EXTREMITIES: No edema, inflammation or ulceration. CARDIOVASCULAR: No tenderness. NEUROLOGIC: She is obtunded and not responding very much and not cooperating right now. EXTREMITIES: Reveal no edema, inflammation, or ulceration. SKIN: Age-related changes. LABORATORY DATA: The patient's white count was 10, hematocrit 47. INR was normal. Blood sugar was 105. IMAGING STUDIES: CT of the head showed a large brainstem hemorrhage resulting in expansion of the brainstem and extension of the hemorrhage into the left cerebral pedicle. Effacement of the cerebral aqueduct, small-vessel disease, possible lacunar type infarct in the right basal ganglia. Brainstem hemorrhage. EKG shows nonspecific ST-T changes. Possible left ventricular hypertrophy. Chest x-ray is unremarkable. She was intubated at the time. ASSESSMENT AND PLAN: 1. Intracranial hemorrhage. 2. Hypertension. 3. Obesity. She has multiple major risk factors for coronary artery disease and she is a smoker. She has now had this major hemorrhage. Her troponins have increased. I do not think that indicates that she really has an acute coronary syndrome at this point in time. The EKGs are not evolving. However, she certainly could have an acute coronary syndrome. However, with this bleed she is not a candidate for aspirin or other antiplatelet medicine or full anticoagulation. Whenever Neurosurgery thinks it is okay, we can start her on 81 mg of aspirin a day. We will follow her over time with you. She does not have heart failure right now. She is not having symptoms of acute ischemia, but she would not know really if she was very easily, but she is not complaining of anything when she does wake up according to the family. Her blood pressure obviously needs to be very well controlled, and we are moving in that direction. All of her questions have been answered. /[id number]/MODL MTDD
[2017-04-09 18:24] LABS: POTASSIUM 4.1 mEq/L (3.5-5.2)
[2017-04-10 00:47] LABS: POTASSIUM 3.9 mEq/L (3.5-5.2)
[2017-04-10] MEDS: niCARdipine/NACL 200 ML IV SCH ×7 (00:59→22:32)
[2017-04-10] MEDS ORDERED: POTASSIUM Cl (KCl) 100 ML IV ONE ×2 (01:30→19:45)
[2017-04-10 04:15] LABS: % IMMATURE GRANULYOCYTES 0.4 % (0.0-1.1); ABSOLUTE IMMATURE GRANULOCYTES 0.05 10^3/uL (0.00-0.10); ADD DIFF? NO; ADD MORPH? NO; ADD SCAN? NO; ATYPICAL LYMPHOCYTE FLAG 0 (0-99); FRAGMENT RBC FLAG 0 (0-99); HEMATOCRIT 37.4 % (38.0-47.0); HEMOGLOBIN 12.1 g/dL (12.6-16.3); LEFT SHIFT FLG 0 (0-99); LIPEMIA HEMOLYSIS FLAG 80 (0-99); MEAN CELL HEMOGLOBIN 25.4 pg (27.9-34.1); MEAN CELL HEMOGLOBIN CONCENTR. 32.4 g/dL (32.4-36.7); MEAN CELL VOLUME 78.6 fL (81.5-99.8); PLATELET CLUMPS FLAG 0 (0-99); PLATELET COUNT 212 10^3/uL (150-400); RED BLOOD CELL COUNT 4.76 10^6/uL (4.18-5.33); RED CELL DISTRIBUTION WIDTH 15.9 % (11.5-15.2)
[2017-04-10 04:43] LABS: ANION GAP 11 mEq/L (8-16); CALCIUM 8.3 mg/dL (8.5-10.4); CARBON DIOXIDE 21 mEq/l (22-31); CHLORIDE 112 mEq/L (97-110); CHOLESTEROL 159 mg/dL (140-220); CHOLESTEROL/HDL RATIO 3.88 RATIO (1.00-4.44); CREATININE 0.6 mg/dL (0.6-1.0); GLOMERULAR FILTRATION RATE > 60; GLUCOSE 115 mg/dL (70-100); HIGH DENSITY LIPOPROTEIN 41 mg/dL (40-85); LDL/HDL RATIO 2.44 RATIO (1.00-3.22); LOW DENSITY LIPOPROTEIN 100 mg/dL (80-100); MAGNESIUM 1.9 mg/dL (1.6-2.3); NON-HIGH DENSITY LIPOPROTEIN 118 mg/dL (90-129); POTASSIUM 4.2 mEq/L (3.5-5.2); SODIUM 144 mEq/L (134-144); TRIGLYCERIDE 93 mg/dL (35-135); VERY LOW DENSITY LIPOPROTEINS 18 mg/dL (8-25)
[2017-04-10] MEDS: POTASSIUM Cl (KCl) 20 MEQ in 1/2 NS 1,000 ML IV SCH ×2 (06:40→16:45)
--- NOTE | 2017-04-10 08:34 | NEUSURGPN ---
Assessment/Plan: Assessment: 51 yo female that is admitted to IM with HTN and ICB to brainstem Plan: -pt with initial presentation of elevated blood pressures in the 180-220 range with a brain stem bleed -CT initially to 2nd CT shows some progression of bleed. 3rd CT is stable -no new events overnight -extubated and awake, follows commands and answer yes/no questions -continue to keep SBP less than 140 -elevate HOB -pt moving more this am, BiPAP in place -following commands to UE/LE and will open eyes spontaneously to verbal, answers yes/no questions -d/w Dr Knight -pending MRI of the brain -warning signs given -call with any questions or concerns Subjective: Awake and alert. NAD. No new events overnight. Objective: awake and alert to verbal follows commands with opens eyes, service loss control consultant bilaterally with L>R, wiggles toes bilaterally with L>R PERRLA/EOMI no droop Neuro Check Frequency: per routine Urinary Catheter in Place: Yes Urinary Catheter Indication: Other (Use Comment) (bed, not ambulating) Catheter Insertion Date: 04/08/17 - Physician Discussed Patient with Dr.: Other (isabela) Patient Seen by Dr.: Other (isabela) Neurosurgery Physical Exam - Vitals, I&O, Labs I and O 04/09/17 04/10/17 04/11/17 05:59 05:59 05:59 Intake Total 2629 3470.9 Output Total 1150 2600 Balance 1479 870.9 Weight 94.8 kg Intake: IV Infused (ml) 2629 3470.9 NS W/ 20 KCl/L 1,000 ml @ 1272 125 mls/hr IV CONT VIANEY Rx#:[id number] POTASSIUM Cl (KCl) 20 meq 2629 In 1/2 Ns 1,000 ml @ 100 mls/hr IV CONT VIANEY Rx#: [id number] Propofol/Emulsion 100 ml 150 20.3 @ Titrate IV CONT VIANEY Rx# :[id number] fentaNYL/NACL 100 ml @ 52 29.3 Per Protocol IV CONT VIANEY Rx#:[id number] niCARdipine/NACL 200 ml @ 955 792.3 Titrate IV CONT VIANEY Rx#: [id number] Output: Urine (ml) 950 2400 Catheter 950 2400 OG Tube Output (ml) 200 200 Large Bore (>12 Khmer) 200 200 Non-weighted 18 [place] Vital Signs Temp Pulse Resp BP Pulse Ox 38.0 C 96 24 H 142/62 H 99 04/10/17 07:00 04/10/17 07:00 04/10/17 07:00 04/10/17 07:00 04/10/17 07:00 Laboratory Results 04/10/17 04:05 04/10/17 04:05 ICD10 Worksheet Patient Problems: Problems Problem Status Onset Acute cerebral hemorrhage Acute
[2017-04-10 09:49] LABS: HEMOGLOBIN A1C 6.1 % (4.0-6.0)
--- NOTE | 2017-04-10 10:09 | NEUROPROG ---
Assessment: [id number] CC: F/U for intracerebral hemorrhage Narrative Summary: On 04/08/17 pt developed acute right sided weakness and right facial numbness as well as severe headache, N/V, which progressed to loss of speech. Pt brought to [facility] ER where a head CT showed a brainstem bleed. She was intubated. Neurosurgery saw her and did not recommend surgery. BP on arrival was 223/127. She was admitted to the ICU. I saw her on 04/09/17. HPI: Inpt F/U 04/10/17. Head CT on 04/09/17 showed no significant interval change of hemorrhage. Brain MRI pending. Pt extubated and moving arms/legs minimally and following 1 step commands. She is slowly improving at this time. 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 Hypertensive Brainstem Intracerebral Hemorrhage on 04/08/17: CTA head/neck showed no alternative vascular abnormality to explain hemorrhage. 2. HTN Plan: - blood pressure per neurosurgery recommendations of < SBP 140 - Brain MRI w/ and w/o con to ensure no underlying ischemic stroke or tumor - hold antiplatelet and anticoagulation, restart date deferred to neurosurgery - DVT prophy with SCDs - PT/OT/Speech when patient can participate with these services Objective: Vital Signs Temp Pulse Resp BP Pulse Ox 37.8 C 78 29 H 143/102 H 93 04/10/17 09:00 04/10/17 09:00 04/10/17 09:00 04/10/17 09:00 04/10/17 09:00 Laboratory Results 04/10/17 04:05 04/10/17 04:05 04/09/17 04/10/17 04/11/17 05:59 05:59 05:59 Intake Total 2629 3470.9 Output Total 1150 2600 Balance 1479 870.9 PT 12.6 SEC (12.0-15.0) 04/08/17 16:58 INR 0.92 (0.83-1.16) 04/08/17 16:58 Allergies/Adverse Reactions: No Known Allergies Allergy (Verified 04/08/17 17:00)
[2017-04-10 11:01] LABS: BASE EXCESS -3.4 mEq/L (-2.5-2.5); BICARBONATE 22 mEq/L (22-26); MEASURED OXYGEN SATURATION 86 % (92-95); PCO2 43 mmHg (34-38); PO2 59 mmHg (65-75); TCO2 23 mEq/L (23-27)
--- NOTE | 2017-04-10 11:41 | PDINTPN ---
Manager Of Exhibitions And Collections Progress Note Assessment/Plan: Assessment: [place] CVA: Minimal change in neuro status since yesterday. Off sedation. Respiratory failure: Still on fairly high FiO2. Having JANE likely related to CVA and obesity (likely had some degree of JANE prior to CVA). Improved with BiPAP, but if unable to protect airway and has persistent obstruction on BiPAP, but need to be reintubated. HTN: Controlled on nicardipine. Anemia: Hgb trending down a bit. No signs of significant active bleeding. Plan: Adjust BiPAP pressures to try to eliminate snoring. Follow BP, titrate nicardipine. Repeat H/H. Check CXR. 04/10/17 11:50 Subjective: Not responding to questions, commands. Withdrawas/grimaces to pain. Objective: Vital Signs Temp Pulse Resp BP Pulse Ox 37.6 C 93 34 H 146/64 H 99 04/10/17 11:00 04/10/17 11:00 04/10/17 11:00 04/10/17 11:00 04/10/17 11:00 Laboratory Results 04/10/17 04:05 04/10/17 04:05 04/09/17 04/10/17 04/11/17 05:59 05:59 05:59 Intake Total 2629 3470.9 Output Total 1150 2600 Balance 1479 870.9 PT 12.6 SEC (12.0-15.0) 04/08/17 16:58 INR 0.92 (0.83-1.16) 04/08/17 16:58 Laboratory Tests 04/10/17 10:50 pCO2 43 H pO2 59 L Total CO2 23 ABG pH 7.33 L Total O2 Concentration 10.0 Laboratory Tests Physical Exam - Physical Exam General Appearance: alert, no apparent distress EENT: normal ENT inspection Respiratory: lungs clear, other (sonorous respirations off BiPAP, improved but not resolved on BiPAP.) Cardiac/Chest: tachycardia (regular) Abdomen: normal bowel sounds, non-tender, soft Skin: normal color, warm/dry Extremities: normal inspection Neuro/Psych: No alert, No oriented x 3 ICD10 Worksheet Patient Problems: Problems Problem Status Onset Acute cerebral hemorrhage Acute
--- NOTE | 2017-04-10 13:11 | HOSPPROG ---
Hospitalist Progress Note Assessment/Plan: 51 yo female with untreated HTN admitted for intracranial hemorrhage. Some improvement in neuro exam overnight. Can follows some commands. Appears to be in Resp Distress Was on BiPAP overnight Tele: NSR #Intracranial Brainstem Hemorrhage -Not a surgical candidate -NS following #Acute respiratory failure, extubated yesterday. Appears to be in acute distress now -Will get an ABG -Likely needs to be put back on BiPAP #HTN, mgmt per NS, BP overall well controlled #Abnormal EKG (Slight ST elevation in Anterior Leads) and elevated troponin -TTE c/w global hypercontractility. No wall abnormalities. LVER 72% -Cards evaluated patient yesterday, cannot r/o ACS, but given her current state , she is not a candidate for intervention, AC, or antiplatelet therapy -Can start a low dose aspirin once Ok by NS Plan: -BP mgmt per Neuro surgery. Goal BP is less than 140mmHg -Likely needs BiPAP. Reintubation if decompensates further -D/w pt's family at bedside -Based on clinical course, may benefit from a palliative care consult -D/w multidisciplinary round team -D/W NS and pulm -Additional Brain imaging today, currently would not tolerate an MRI -SCD's -Hold off on Antiplatelet therapy until ok by neuro total critical care time is 34 minutes Subjective: Extubated yesterday. Appears to be in resp distress. Maintaining O2 sats. Lots of snoring. opens eyes. Answers yes and no questions Objective: Vital Signs Temp Pulse Resp BP Pulse Ox 37.8 C 92 30 H 140/63 H 99 04/10/17 12:00 04/10/17 12:00 04/10/17 12:00 04/10/17 12:00 04/10/17 12:00 Laboratory Results 04/10/17 04:05 04/10/17 04:05 04/09/17 04/10/17 04/11/17 05:59 05:59 05:59 Intake Total 2629 3470.9 Output Total 1150 2600 Balance 1479 870.9 PT 12.6 SEC (12.0-15.0) 04/08/17 16:58 INR 0.92 (0.83-1.16) 04/08/17 16:58 - Physical Exam Constitutional: no apparent distress Eyes: PERRL Ears, Nose, Mouth, Throat: moist mucous membranes Cardiovascular: regular rate and rhythym Respiratory: no respiratory distress, reduced air movement Gastrointestinal: normoactive bowel sounds, soft, non-tender abdomen Skin: warm Neurologic: weakness, No facial droop Psychiatric: encephalopathic ICD10 Worksheet Patient Problems: Problems Problem Status Onset Acute cerebral hemorrhage Acute
[2017-04-10 14:39] LABS: POTASSIUM 4.2 mEq/L (3.5-5.2)
[2017-04-10] MEDS ORDERED: FUROSEMIDE 20 MG/2 ML VIAL IVP ONE (16:18)
[2017-04-10 17:59] LABS: POTASSIUM 3.9 mEq/L (3.5-5.2)
[2017-04-11] MEDS: niCARdipine/NACL 200 ML IV SCH ×9 (00:15→22:39)
[2017-04-11 00:49] LABS: POTASSIUM 4.3 mEq/L (3.5-5.2)
[2017-04-11 04:59] LABS: % IMMATURE GRANULYOCYTES 0.4 % (0.0-1.1); ABSOLUTE IMMATURE GRANULOCYTES 0.04 10^3/uL (0.00-0.10); ADD DIFF? NO; ADD MORPH? NO; ADD SCAN? NO; ATYPICAL LYMPHOCYTE FLAG 10 (0-99); FRAGMENT RBC FLAG 0 (0-99); HEMATOCRIT 37.1 % (38.0-47.0); HEMOGLOBIN 11.9 g/dL (12.6-16.3); LEFT SHIFT FLG 0 (0-99); LIPEMIA HEMOLYSIS FLAG 80 (0-99); MEAN CELL HEMOGLOBIN 25.2 pg (27.9-34.1); MEAN CELL HEMOGLOBIN CONCENTR. 32.1 g/dL (32.4-36.7); MEAN CELL VOLUME 78.6 fL (81.5-99.8); MEAN PLATELET VOLUME 9.5 fL (8.7-11.7); PLATELET CLUMPS FLAG 0 (0-99); PLATELET COUNT 212 10^3/uL (150-400); RED BLOOD CELL COUNT 4.72 10^6/uL (4.18-5.33); RED CELL DISTRIBUTION WIDTH 15.9 % (11.5-15.2)
[2017-04-11] MEDS: POTASSIUM Cl (KCl) 20 MEQ in 1/2 NS 1,000 ML IV SCH ×2 (05:15→19:38)
[2017-04-11 05:31] LABS: ANION GAP 10 mEq/L (8-16); CALCIUM 8.2 mg/dL (8.5-10.4); CARBON DIOXIDE 22 mEq/l (22-31); CHLORIDE 112 mEq/L (97-110); CREATININE 0.6 mg/dL (0.6-1.0); GLOMERULAR FILTRATION RATE > 60; GLUCOSE 96 mg/dL (70-100); MAGNESIUM 2.1 mg/dL (1.6-2.3); POTASSIUM 4.3 mEq/L (3.5-5.2); SODIUM 144 mEq/L (134-144)
[2017-04-11] MEDS: LABETALOL HCL 5 MG/ML 20 ML MDV IVP PRN ×4 (08:17→23:35)
--- NOTE | 2017-04-11 08:33 | SOAPPROG ---
SOAP Progress Note Assessment/Plan: Assessment/Plan: Assessment: 51 yo female that is admitted to with HTN and ICB to brainstem Plan: -CT initially to 2nd CT shows some progression of bleed. 3rd CT is stable. Will get MRI or CTH today to evaluate for Hydrocepahlus. This was discussed with Dr. Knight. -no new events overnight -extubated and awake, follows commands and nods her head -continue to keep SBP less than 140 -elevate HOB -pending MRI of the brain -call with any questions or concerns Subjective: Awake, comfortable appearing, on BiPap. No overnight events. Objective: Vital Signs Temp Pulse Resp BP Pulse Ox 37.6 C 101 H 30 H 139/57 H 97 04/11/17 08:00 04/11/17 08:17 04/11/17 08:00 04/11/17 08:00 04/11/17 08:00 Laboratory Results 04/11/17 04:50 04/11/17 04:50 04/10/17 04/11/17 04/12/17 05:59 05:59 05:59 Intake Total 3470.9 3862 Output Total 2600 3100 Balance 870.9 762 PT 12.6 SEC (12.0-15.0) 04/08/17 16:58 INR 0.92 (0.83-1.16) 04/08/17 16:58 Neuro: Eyes open follows commands x 4 with weak right purchase analyst. Unable to lift right arm off of bed. Moves feet briskly. move feet briskly to command, shoulder shrug symmetric ICD10 Worksheet Patient Problems: Problems Problem Status Onset Acute cerebral hemorrhage Acute
[2017-04-11] MEDS ORDERED: ADENOSINE 6 MG/2 ML VIAL ONE (08:42)
[2017-04-11] MEDS ORDERED: FUROSEMIDE 20 MG/2 ML VIAL IVP ONE (10:30)
[2017-04-11 11:53] LABS: PCO2 VENOUS 38 mmHg (40-44); PH VENOUS BLOOD 7.37 (7.31-7.42); PO2 VENOUS 45 mmHg (35-40); TCO2 VENOUS 23 mEq/L (23-27); VEN MEASURED OXYGEN SATURATION 76 % (65-75)
--- NOTE | 2017-04-11 11:58 | HOSPPROG ---
Hospitalist Progress Note Assessment/Plan: 51 yo female with untreated HTN admitted for intracranial hemorrhage. Some improvement in neuro exam overnight. Can follows some commands. on BiPAP Tele: NSR Appears volume overload CXR personally reviewed, vascular congestion vs infiltrate Low grade fever #Intracranial Brainstem Hemorrhage -Not a surgical candidate -NS following -No progression per latest CT. Pending CT today. Hopefully MRI soon #Acute respiratory failure, extubated 04/09 -BiPAP PRN -ABG now #Volume overload -Decrease maintenance IVF to 75 ml/hr -Lasix x 1 #Leukocytosis -If worsens, then treat for pneumonia #HTN, mgmt per NS, BP overall well controlled #Abnormal EKG (Slight ST elevation in Anterior Leads) and elevated troponin -TTE c/w global hypercontractility. No wall abnormalities. LVER 72% -Cards evaluated patient yesterday, cannot r/o ACS, but given her current state , she is not a candidate for intervention, AC, or antiplatelet therapy -Can start a low dose aspirin once Ok by NS Plan: -BP mgmt per Neuro surgery. Goal BP is less than 140mmHg -BiPAP, if does not tolerate, reintubate -D/w pt's family at bedside -Based on clinical course, may benefit from a palliative care consult -D/w multidisciplinary round team -SCD's -Hold off on Antiplatelet therapy until ok by neuro Subjective: Resp state is better since back on BiPAP. Good urine output. Looks swollen. low grade fever Objective: Vital Signs Temp Pulse Resp BP Pulse Ox 37.6 C 85 34 H 139/57 H 97 04/11/17 08:00 04/11/17 08:51 04/11/17 08:51 04/11/17 08:00 04/11/17 08:51 Laboratory Results 04/11/17 04:50 04/10/17 04/11/17 04/12/17 05:59 05:59 05:59 Intake Total 3470.9 3862 Output Total 2600 3100 Balance 870.9 762 PT 12.6 SEC (12.0-15.0) 04/08/17 16:58 INR 0.92 (0.83-1.16) 04/08/17 16:58 - Physical Exam Eyes: PERRL Ears, Nose, Mouth, Throat: moist mucous membranes Cardiovascular: regular rate and rhythym, edema Respiratory: rhonchi Gastrointestinal: normoactive bowel sounds, soft, non-tender abdomen Skin: warm Neurologic: No AAOx3, No facial droop Psychiatric: encephalopathic, No interacting appropriately Lymph, Heme, Immunologic: No petechiae ICD10 Worksheet Patient Problems: Problems Problem Status Onset Acute cerebral hemorrhage Acute
--- NOTE | 2017-04-11 12:19 | PDINTPN ---
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 Off sedation. Respiratory failure: O2 needs down to 40% FIO2. Having JANE likely related to CVA and obesity (likely had some degree of JANE prior to CVA). Improved with BiPAP, but if unable to protect airway and has persistent obstruction on BiPAP, may need to be reintubated. HTN: Controlled on nicardipine. Anemia: Hgb stable today. Plan: Continue BiPAP pressures to treat eliminate snoring. Follow BP, titrate nicardipine. Repeat H/H. Check CXR. 04/11/17 12:24 Subjective: A bit stronger, alert for longer times and more spontaneous movement, otherwise no change. Objective: Vital Signs Temp Pulse Resp BP Pulse Ox 37.6 C 91 29 H 139/65 H 99 04/11/17 12:00 04/11/17 12:00 04/11/17 12:00 04/11/17 12:00 04/11/17 12:00 Laboratory Results 04/11/17 04:50 04/10/17 04/11/17 04/12/17 05:59 05:59 05:59 Intake Total 3470.9 3862 Output Total 2600 3100 Balance 870.9 762 PT 12.6 SEC (12.0-15.0) 04/08/17 16:58 INR 0.92 (0.83-1.16) 04/08/17 16:58 Laboratory Tests 04/11/17 11:45 VBG pH 7.37 VBG HCO3 22 VBG O2 Saturation 76 H Mixed VBG pCO2 38 L Mixed VBG pO2 45 H CR: RLL infiltrate. Images reviewed by me. Physical Exam - Physical Exam General Appearance: no apparent distress, No alert (somnolent, arouses weakly to noxious stimuli) EENT: normal ENT inspection Neck: normal inspection Respiratory: lungs clear, No normal breath sounds Cardiac/Chest: regular rate, rhythm, No edema Abdomen: normal bowel sounds, non-tender Skin: normal color, warm/dry Extremities: normal inspection Neuro/Psych: motor weakness (right), No alert, No normal mood/affect, No oriented x 3 ICD10 Worksheet Patient Problems: Problems Problem Status Onset Acute cerebral hemorrhage Acute
--- NOTE | 2017-04-11 12:48 | ASMTCMCOM ---
CM Note CM Note Notes: Patient is alert for longer times but overall not much change. Patient remains on the BiPap to eliminate snoring. Therapies have not been able to evaluate yet. D/C needs remain TBD. CM will follow. Date Signed: 04/11/2017 12:47 PM Electronically Signed By:Aggie Amador LCSW
[2017-04-11 12:58] LABS: POTASSIUM 4.3 mEq/L (3.5-5.2)
--- NOTE | 2017-04-11 17:00 | ASMTCMCOM ---
CM Note CM Note Notes: Patient's family has requested assistance with letters for family members who want to visit from [place]. This request was made at the end of the day and will have to be addressed on Friday. The family was informed they need to gather the information on family members and where the letters will be going and bring that in on Friday. CM will follow. Date Signed: 04/11/2017 04:59 PM Electronically Signed By:Aggie Amador LCSW
[2017-04-11 18:47] LABS: POTASSIUM 4.3 mEq/L (3.5-5.2)
[2017-04-11] MEDS: ACETAMINOPHEN 650 MG SUPP PR PRN (22:24)
[2017-04-12] MEDS: niCARdipine/NACL 200 ML IV SCH ×10 (00:06→21:23)
[2017-04-12] MEDS: LABETALOL HCL 5 MG/ML 20 ML MDV IVP PRN ×7 (00:06→20:49)
[2017-04-12 00:43] LABS: POTASSIUM 4.2 mEq/L (3.5-5.2)
[2017-04-12 04:55] LABS: % IMMATURE GRANULYOCYTES 0.4 % (0.0-1.1); ABSOLUTE IMMATURE GRANULOCYTES 0.04 10^3/uL (0.00-0.10); ADD DIFF? NO; ADD MORPH? NO; ADD SCAN? NO; ATYPICAL LYMPHOCYTE FLAG 10 (0-99); FRAGMENT RBC FLAG 0 (0-99); HEMOGLOBIN 11.7 g/dL (12.6-16.3); LEFT SHIFT FLG 0 (0-99); LIPEMIA HEMOLYSIS FLAG 80 (0-99); MEAN CELL HEMOGLOBIN 25.4 pg (27.9-34.1); MEAN CELL HEMOGLOBIN CONCENTR. 32.5 g/dL (32.4-36.7); MEAN CELL VOLUME 78.1 fL (81.5-99.8); MEAN PLATELET VOLUME 9.7 fL (8.7-11.7); PLATELET CLUMPS FLAG 0 (0-99); PLATELET COUNT 233 10^3/uL (150-400); RED BLOOD CELL COUNT 4.61 10^6/uL (4.18-5.33); RED CELL DISTRIBUTION WIDTH 16.1 % (11.5-15.2)
[2017-04-12 05:20] LABS: ANION GAP 7 mEq/L (8-16); CALCIUM 8.3 mg/dL (8.5-10.4); CARBON DIOXIDE 24 mEq/l (22-31); CHLORIDE 115 mEq/L (97-110); CREATININE 0.6 mg/dL (0.6-1.0); GLOMERULAR FILTRATION RATE > 60; GLUCOSE 109 mg/dL (70-100); MAGNESIUM 2.3 mg/dL (1.6-2.3); POTASSIUM 4.4 mEq/L (3.5-5.2); SODIUM 146 mEq/L (134-144)
--- NOTE | 2017-04-12 05:55 | NEUSURGPN ---
Assessment/Plan: Assessment: 51 yo female that is admitted to IM with HTN and ICB to brainstem Plan: -CT initially to 2nd CT shows some progression of bleed. 3rd CT is stable. Will get MRI brain per Dr Breaux request -CTH yesterday stable to evaluate for hydrocepahlus. Discussed with Dr. Knight. -neuro stable, pt on less Cardene -no new events overnight -extubated and awake, follows commands and nods her head -continue to keep SBP less than 140 -elevate HOB -pending MRI of the brain -call with any questions or concerns Subjective: Awake and alert to verbal. No new events overnight or complaints per RN. Objective: Awake to verbal, Eyes open follows commands x 4 with weak right manager java. Unable to lift right arm off of bed c/w hx Move feet briskly to command, shoulder shrug symmetric Neuro Check Frequency: per routine Urinary Catheter in Place: Yes Urinary Catheter Indication: Other (Use Comment) (not ambulating well) Catheter Insertion Date: 04/08/17 - Physician Discussed Patient with Dr.: Jd Amaya) Patient Seen by Dr.: Other Monique) Neurosurgery Physical Exam - Vitals, I&O, Labs I and O 04/10/17 04/11/17 04/12/17 05:59 05:59 05:59 Intake Total 3470.9 3862 1455 Output Total 2600 3100 1975 Balance 870.9 762 -520 Intake: IV Intake (ml) 642 IV Infused (ml) 3470.9 3862 813 POTASSIUM Cl (KCl) 20 meq 2629 2191 100 In 1/2 Ns 1,000 ml @ 100 mls/hr IV CONT VIANEY Rx#: [id number] Propofol/Emulsion 100 ml 20.3 @ Titrate IV CONT VIANEY Rx# :[id number] fentaNYL/NACL 100 ml @ 29.3 Per Protocol IV CONT VIANEY Rx#:[id number] niCARdipine/NACL 200 ml @ 792.3 Titrate IV CONT VIANEY Rx#: [id number] niCARdipine/NACL 200 ml @ 1671 713 Titrate IV CONT VIANEY Rx#: [id number] Output: Urine (ml) 2400 3100 1975 Catheter 2400 3100 1975 OG Tube Output (ml) 200 Large Bore (>12 Liberian) 200 Non-weighted 18 Liberian Vital Signs Temp Pulse Resp BP Pulse Ox 37.5 C 94 26 H 135/67 H 100 04/12/17 03:00 04/12/17 03:00 04/12/17 03:00 04/12/17 03:00 04/12/17 03:00 Laboratory Results 04/12/17 04:30 04/12/17 04:30 ICD10 Worksheet Patient Problems: Problems Problem Status Onset Acute cerebral hemorrhage Acute
[2017-04-12] MEDS ORDERED: FUROSEMIDE 40 MG/4 ML VIAL IVP ONE (11:58)
--- NOTE | 2017-04-12 12:03 | HOSPPROG ---
Hospitalist Progress Note Assessment/Plan: 51 yo female with untreated HTN admitted for intracranial hemorrhage. Some improvement in neuro exam overnight. Can follows some commands. on BiPAP Tele: NSR Appears volume overload Afebrile #Intracranial Brainstem Hemorrhage -Not a surgical candidate -NS following -No progression per latest CT. Pending CT today. Hopefully MRI soon #Acute respiratory failure, extubated 04/09 -BiPAP PRN #Volume overload -Has been receiving a significant amount of fluids via medications in addition to maintenance fluid -Change total IVF to 125ml/hr. She is receiving more than this currently. Discussed with nurse. May need to decrease this amount to 100ml total fluid tomorrow. -Additional Lasix today #Leukocytosis, improving -If worsens, then treat for pneumonia #HTN, mgmt per NS, BP overall well controlled -Lasix per above should help #Abnormal EKG (Slight ST elevation in Anterior Leads) and elevated troponin -TTE c/w global hypercontractility. No wall abnormalities. LVER 72% -Cards evaluated patient yesterday, cannot r/o ACS, but given her current state , she is not a candidate for intervention, AC, or antiplatelet therapy -Can start a low dose aspirin once Ok by NS Plan: -Lasix today -Adjust IVF per above -BP mgmt per Neuro surgery. Goal BP is less than 140mmHg -BiPAP, if does not tolerate, reintubate -D/w pt's family at bedside -Based on clinical course, may benefit from a palliative care consult -D/w nurse -SCD's -Hold off on Antiplatelet therapy until ok by neuro Subjective: on BiPAP. Still looks volume up. Opens eyes, follows commands Objective: Vital Signs Temp Pulse Resp BP Pulse Ox 37.1 C 91 21 H 127/59 H 100 04/12/17 10:00 04/12/17 10:00 04/12/17 10:00 04/12/17 10:00 04/12/17 10:00 Laboratory Results 04/12/17 04:30 04/12/17 04:30 04/11/17 04/12/17 04/13/17 05:59 05:59 05:59 Intake Total 3862 3103 Output Total 3100 2825 Balance 762 278 PT 12.6 SEC (12.0-15.0) 04/08/17 16:58 INR 0.92 (0.83-1.16) 04/08/17 16:58 - Physical Exam Constitutional: no apparent distress Eyes: PERRL Ears, Nose, Mouth, Throat: moist mucous membranes Cardiovascular: regular rate and rhythym, edema, No JVD Respiratory: reduced air movement Gastrointestinal: normoactive bowel sounds, soft, non-tender abdomen Skin: warm Neurologic: No facial droop Psychiatric: encephalopathic Lymph, Heme, Immunologic: No petechiae ICD10 Worksheet Patient Problems: Problems Problem Status Onset Acute cerebral hemorrhage Acute
[2017-04-12 13:27] LABS: POTASSIUM 4.4 mEq/L (3.5-5.2)
--- NOTE | 2017-04-12 13:32 | NEUROPROG ---
Assessment: [id number] CC: F/U for intracerebral hemorrhage Narrative Summary: On 04/08/17 pt developed acute right sided weakness and right facial numbness as well as severe headache, N/V, which progressed to loss of speech. Pt brought to [facility] ER where a head CT showed a brainstem bleed. She was intubated. Neurosurgery saw her and did not recommend surgery. BP on arrival was 223/127. She was admitted to the ICU. I saw her on 04/09/17. Inpt F/U 04/10/17. Head CT on 04/09/17 showed no significant interval change of hemorrhage. Brain MRI pending. Pt extubated and moving arms/legs minimally and following 1 step commands. She is slowly improving at this time. HPI: Inpt f/u 04/12/17. Pt had been working with physical therapy so was very tired and was sleeping (but was arousable). I spoke with her daughter and she reported no concerns or complaints and that things were improving. Brain MRI still pending. 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 Hypertensive Brainstem Intracerebral Hemorrhage on 04/08/17: CTA head/neck showed no alternative vascular abnormality to explain hemorrhage. 2. HTN Plan: - blood pressure per neurosurgery recommendations of < SBP 140 - Brain MRI w/ and w/o con to ensure no underlying ischemic stroke or tumor - hold antiplatelet and anticoagulation, restart date deferred to neurosurgery - PT/OT/Speech when patient can participate with these services 35 min spent with patient and her daughter, majority of time spent discussing with daughter and discussing prognosis. Objective: Vital Signs Temp Pulse Resp BP Pulse Ox 37.1 C 91 21 H 157/111 H 100 04/12/17 10:00 04/12/17 10:00 04/12/17 10:00 04/12/17 12:19 04/12/17 10:00 Laboratory Results 04/12/17 04:30 04/12/17 12:42 04/11/17 04/12/17 04/13/17 05:59 05:59 05:59 Intake Total 3862 3103 Output Total 3100 2825 Balance 762 278 PT 12.6 SEC (12.0-15.0) 04/08/17 16:58 INR 0.92 (0.83-1.16) 04/08/17 16:58 Allergies/Adverse Reactions: No Known Allergies Allergy (Verified 04/08/17 17:00)
--- NOTE | 2017-04-12 13:39 | PDINTPN ---
Beam Worker Progress Note Assessment/Plan: Assessment: Pontine CVA: Neuro status stable. Off sedation. Respiratory failure: O2 needs down to 40% FIO2. Having JANE likely related to CVA and obesity (likely had some degree of JANE prior to CVA). Improved with BiPAP, but if unable to protect airway and has persistent obstruction on BiPAP, may need to be reintubated. HTN: Controlled on nicardipine. Anemia: Hgb stable today. Hypernatremia: Mild, trending up. Nutrition: None for 4 days. Plan: Continue BiPAP pressures to treat eliminate snoring. Place NGT and start TF. Stop IVF, use H2O flushes as needed for hypernatremia. Follow BP, titrate nicardipine, start PO antihypertensive once tube placed. Aim for negative fluid balance. Follow H/H. Check CXR. 04/12/17 13:48 Subjective: Weakly responds, unable to get reliable answers regarding discomfort, etc. Objective: Vital Signs Temp Pulse Resp BP Pulse Ox 37.1 C 91 21 H 157/111 H 100 04/12/17 10:00 04/12/17 10:00 04/12/17 10:00 04/12/17 12:19 04/12/17 10:00 Laboratory Results 04/12/17 04:30 04/12/17 12:42 04/11/17 04/12/17 04/13/17 05:59 05:59 05:59 Intake Total 3862 3103 Output Total 3100 2825 Balance 762 278 PT 12.6 SEC (12.0-15.0) 04/08/17 16:58 INR 0.92 (0.83-1.16) 04/08/17 16:58 CTH 04/11: Stable pontine hemorrhage. Images reviewed by me. Laboratory Tests 04/11/17 11:45 VBG pH 7.37 VBG HCO3 22 VBG Total CO2 23 VBG O2 Saturation 76 H Mixed VBG pCO2 38 L Mixed VBG pO2 45 H VBG on BiPAP above. Physical Exam - Physical Exam General Appearance: alert, no apparent distress EENT: normal ENT inspection Neck: full range of motion, normal inspection Respiratory: chest non-tender, lungs clear Cardiac/Chest: regular rate, rhythm, edema (1+) Abdomen: normal bowel sounds, non-tender Skin: normal color, warm/dry Extremities: normal inspection Neuro/Psych: No alert, No oriented x 3 ICD10 Worksheet Patient Problems: Problems Problem Status Onset Acute cerebral hemorrhage Acute
[2017-04-12] MEDS: POTASSIUM Cl (KCl) 20 MEQ in 1/2 NS 1,000 ML IV SCH (18:13)
[2017-04-12 18:35] LABS: POTASSIUM 4.2 mEq/L (3.5-5.2)
[2017-04-12] MEDS: ACETAMINOPHEN 650 MG SUPP PR PRN (20:30)
[2017-04-13] MEDS: LABETALOL HCL 5 MG/ML 20 ML MDV IVP PRN ×7 (00:18→17:27)
[2017-04-13] MEDS: niCARdipine/NACL 200 ML IV SCH ×12 (00:19→22:53)
[2017-04-13] MEDS: ACETAMINOPHEN 650 MG SUPP PR PRN ×2 (02:06→05:44)
[2017-04-13 04:20] LABS: % IMMATURE GRANULYOCYTES 0.3 % (0.0-1.1); ABSOLUTE IMMATURE GRANULOCYTES 0.03 10^3/uL (0.00-0.10); ADD DIFF? NO; ADD MORPH? NO; ADD SCAN? NO; ATYPICAL LYMPHOCYTE FLAG 0 (0-99); FRAGMENT RBC FLAG 0 (0-99); LEFT SHIFT FLG 0 (0-99); LIPEMIA HEMOLYSIS FLAG 80 (0-99); MEAN CELL HEMOGLOBIN 25.3 pg (27.9-34.1); MEAN CELL HEMOGLOBIN CONCENTR. 32.4 g/dL (32.4-36.7); MEAN CELL VOLUME 78.1 fL (81.5-99.8); MEAN PLATELET VOLUME 9.3 fL (8.7-11.7); PLATELET CLUMPS FLAG 10 (0-99); PLATELET COUNT 265 10^3/uL (150-400); RED BLOOD CELL COUNT 4.74 10^6/uL (4.18-5.33)
[2017-04-13 04:31] LABS: ANION GAP 9 mEq/L (8-16); CALCIUM 8.7 mg/dL (8.5-10.4); CARBON DIOXIDE 28 mEq/l (22-31); CHLORIDE 111 mEq/L (97-110); CREATININE 0.6 mg/dL (0.6-1.0); GLOMERULAR FILTRATION RATE > 60; GLUCOSE 169 mg/dL (70-100); MAGNESIUM 2.1 mg/dL (1.6-2.3); POTASSIUM 4.2 mEq/L (3.5-5.2); SODIUM 148 mEq/L (134-144)
--- NOTE | 2017-04-13 06:58 | NEUSURGPN ---
Assessment/Plan: Assessment: 51 yo female that is admitted to with HTN and ICB to brainstem Plan: -CT initially to 2nd CT shows some progression of bleed. 3rd CT is stable. Will get MRI brain per Dr Breaux request when able -CTH yesterday stable to evaluate for hydrocepahlus. Discussed with Dr. Knight. -neuro stable, pt on less Cardene -on TPN -breathing better per staffing and scheduling coordinator -no new events overnight -extubated and awake, follows commands and nods her head -continue to keep SBP less than 140 -elevate HOB -pending MRI of the brain -call with any questions or concerns Subjective: Awake to verbal. NAD. No new events overnight. No f/c/n/v/d. Objective: Awake to verbal, Eyes open follows commands x 4 with weak right education diagnostician. Unable to lift right arm off of bed c/w hx Move feet briskly to command, shoulder shrug symmetric Neuro Check Frequency: per routine Urinary Catheter in Place: Yes Urinary Catheter Indication: Other (Use Comment) (not ambulating) Catheter Insertion Date: 04/08/17 - Physician Discussed Patient with Dr.: Other (isabela) Patient Seen by Dr.: Other (isabela) Neurosurgery Physical Exam - Vitals, I&O, Labs I and O 04/12/17 04/13/17 04/14/17 05:59 05:59 05:59 Intake Total 3103 3829 Output Total 2825 3800 Balance 278 29 Weight 93.7 kg Intake: IV Intake (ml) 642 926 IV Infused (ml) 2461 2205 POTASSIUM Cl (KCl) 20 meq 528 In 1/2 Ns 1,000 ml @ 100 mls/hr IV CONT VIANEY Rx#: [id number] niCARdipine/NACL 200 ml @ 1933 2205 Titrate IV CONT VIANEY Rx#: [id number] Tube Feeding (ml) 498 Tube Flush (ml) 200 Output: Urine (ml) 2825 3800 Catheter 2825 3800 Vital Signs Temp Pulse Resp BP Pulse Ox 38.0 C 113 H 28 H 131/104 H 100 04/13/17 05:50 04/13/17 05:53 04/13/17 05:50 04/13/17 05:53 04/13/17 05:50 Laboratory Results 04/13/17 04:15 04/13/17 04:15 ICD10 Worksheet Patient Problems: Problems Problem Status Onset Acute cerebral hemorrhage Acute
[2017-04-13] MEDS ORDERED: FUROSEMIDE 40 MG/4 ML VIAL IVP ONE (10:17)
[2017-04-13] MEDS ORDERED: amLODIPine BESYLATE 5 MG TAB PO SCH (10:30)
--- NOTE | 2017-04-13 11:00 | PDINTPN ---
Birth Certificate Clerk Progress Note Assessment/Plan: Assessment: Pontine CVA: Neuro status stable. Off sedation. Respiratory failure: O2 needs down to 40% FIO2. Having JANE likely related to CVA and obesity (likely had some degree of JANE prior to CVA). Improved with BiPAP, but if unable to protect airway and has persistent obstruction on BiPAP, may need to be reintubated. HTN: Controlled on nicardipine. Anemia: Hgb stable today. Hypernatremia: Mild, trending up. Nutrition: None for 4 days. Plan: Continue BiPAP pressures to treat eliminate snoring. Place NGT and start TF. Stop IVF, use H2O flushes as needed for hypernatremia. Follow BP, titrate nicardipine, start PO antihypertensive once tube placed. Aim for negative fluid balance. Follow H/H. Check CXR. 04/12/17 13:48 Subjective: On BiPAP, follows commands intermittently Objective: Vital Signs Temp Pulse Resp BP Pulse Ox 37.9 C 90 29 H 164/83 H 93 04/13/17 08:00 04/13/17 08:00 04/13/17 08:00 04/13/17 08:47 04/13/17 08:00 Laboratory Results 04/13/17 04:15 04/13/17 04:15 04/12/17 04/13/17 04/14/17 05:59 05:59 05:59 Intake Total 3103 3829 Output Total 2825 3800 Balance 278 29 PT 12.6 SEC (12.0-15.0) 04/08/17 16:58 INR 0.92 (0.83-1.16) 04/08/17 16:58 CXR: Improved RLL infiltrate. Increased interstitial markings. Images reviewed by me. Physical Exam - Physical Exam General Appearance: alert, no apparent distress EENT: normal ENT inspection Neck: normal inspection Respiratory: lungs clear, normal breath sounds Cardiac/Chest: regular rate, rhythm, edema (1+) Abdomen: normal bowel sounds, non-tender Skin: normal color, warm/dry Extremities: normal inspection Neuro/Psych: alert, normal mood/affect, oriented x 3 ICD10 Worksheet Patient Problems: Problems Problem Status Onset Acute cerebral hemorrhage Acute
[2017-04-13] MEDS ORDERED: D50W 25 GM/50 ML SYR IVP PRN (11:05)
--- NOTE | 2017-04-13 11:10 | HOSPPROG ---
Hospitalist Progress Note Assessment/Plan: 51 yo female with untreated HTN admitted for intracranial hemorrhage. Some improvement in neuro exam overnight. Can follows some commands. on BiPAP Tele: NSR Appears volume overload low grade fever CXR shows bilateral patchy infiltrate mild Leukocytosis #Intracranial Brainstem Hemorrhage -Not a surgical candidate -NS following -No progression per latest CT. Pending CT today. Hopefully MRI soon #Acute respiratory failure, extubated 04/09 -BiPAP PRN #Volume overload -Lasix scheduled today -decrease free water in TF's #Dysphagia: -Tube feeds #Leukocytosis -If worsens, then treat for pneumonia #HTN -transition to PO Amlodipine -Cont Nicardapine PRN #Abnormal EKG (Slight ST elevation in Anterior Leads) and elevated troponin -TTE c/w global hypercontractility. No wall abnormalities. LVER 72% -Cards evaluated patient yesterday, cannot r/o ACS, but given her current state , she is not a candidate for intervention, AC, or antiplatelet therapy -Can start a low dose aspirin once Ok by NS keep ICU D/w ICU staff during ICU rounds Subjective: neuro hunter unchanged, opens eyes, follows some commands. +Volume overload Objective: Vital Signs Temp Pulse Resp BP Pulse Ox 37.9 C 90 29 H 164/83 H 93 04/13/17 08:00 04/13/17 08:00 04/13/17 08:00 04/13/17 08:47 04/13/17 08:00 Laboratory Results 04/13/17 04:15 04/13/17 04:15 04/12/17 04/13/17 04/14/17 05:59 05:59 05:59 Intake Total 3103 3829 Output Total 2825 3800 Balance 278 29 PT 12.6 SEC (12.0-15.0) 04/08/17 16:58 INR 0.92 (0.83-1.16) 04/08/17 16:58 - Physical Exam Constitutional: no apparent distress Eyes: PERRL, EOMI Ears, Nose, Mouth, Throat: moist mucous membranes, hearing normal Cardiovascular: regular rate and rhythym, edema Respiratory: inspiratory crackles Gastrointestinal: normoactive bowel sounds, soft, non-tender abdomen Skin: warm Musculoskeletal: generalized weakness Neurologic: No AAOx3 Psychiatric: encephalopathic, No interacting appropriately Lymph, Heme, Immunologic: No petechiae ICD10 Worksheet Patient Problems: Problems Problem Status Onset Acute cerebral hemorrhage Acute
[2017-04-13] MEDS: INSULIN LISPRO 100 UNIT/ML SC SCH ×2 (12:20→18:30)
--- NOTE | 2017-04-13 13:17 | WOCRNPDOC ---
WOCRN Advanced Assessment Note - Skin Integrity Problem, Advanced Assess Nose Pressure Injury Dressing Type: Mepilex Transfer Dressing Description: Shadowed Exudate Amount: Scant Exudate Color: Reddish/Yellow Exudate Characteristic(s): Serosanguinous Integumentary Issue Intervention: Dressing Changed Anna Wound Tissue: Blanching, Intact Anna Wound Swelling: Mild Wound Bed Color: Black, Red Wound Bed Constitution: Red/[place] - Non Granular Tissue (80%), Mixed Loose & Adhered Slough/Eschar (20%) Site Odor: None Site Measurement - Head-to-Toe Length X Width X Depth (cm): 1cmx1.5cmx0.2cm (w/ 0.3cmx0.3cm island of adhered eschar medially) Pressure Injury Stage: Unstageable, Tarp Repairer Related Pressure Injury (Bi- pap) Pressure Injury Present on Admit: No (Hospitalist notified) Skin Integrity Problem Comment: Wound noted on the bridge of patient's nose, directly under the proximal aspect of the Bi-pap mask, consistent in appearance w/ device-related pressure injury. Presently wound is full-thickness w/ red non- granulating tissue in 80% of the wound, and a patch of adhered eschar medially. That patch of eschar presently makes the wound unstageable. Anna-wound skin is intact and blanching. Nursing applied foam dressing when injury noted, and I think this is appropriate to continue. Orders written for protective foam dressing, w/ note to notify wound RN when Bi-pap is removed so that orders may be updated. Wound care will round on patient again on 04/15.
--- NOTE | 2017-04-13 13:30 | NEUROPROG ---
Assessment: [id number] CC: F/U for intracerebral hemorrhage Narrative Summary: On 04/08/17 pt developed acute right sided weakness and right facial numbness as well as severe headache, N/V, which progressed to loss of speech. Pt brought to [facility] ER where a head CT showed a brainstem bleed. She was intubated. Neurosurgery saw her and did not recommend surgery. BP on arrival was 223/127. She was admitted to the ICU. I saw her on 04/09/17. Inpt F/U 04/10/17. Head CT on 04/09/17 showed no significant interval change of hemorrhage. Brain MRI pending. Pt extubated and moving arms/legs minimally and following 1 step commands. She is slowly improving at this time. Inpt f/u 04/12/17. Pt had been working with physical therapy so was very tired and was sleeping (but was arousable). I spoke with her daughter and she reported no concerns or complaints and that things were improving. Brain MRI still pending. HPI: Inpt F/U 04/13/17. Brain MRI still pending. Pt stable with no new major problems. Pt with 4 family members at bedside. 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 Hypertensive Brainstem Intracerebral Hemorrhage on 04/08/17: CTA head/neck showed no alternative vascular abnormality to explain hemorrhage. 2. HTN Plan: - blood pressure per neurosurgery recommendations of < SBP 140 - Brain MRI w/ and w/o con to ensure no underlying ischemic stroke or tumor - hold antiplatelet and anticoagulation, restart date deferred to neurosurgery - PT/OT/Speech when patient can participate with these services 35 min spent with patient and her family members, majority of time spent discussing with family and discussing prognosis as well as diagnostic w/u. Neurology will sign off but will become reinvolved if needed. Please call when brain MRI is completed if there are any questions or any change in neurologic status. Objective: Vital Signs Temp Pulse Resp BP Pulse Ox 38.1 C 106 H 29 H 123/62 H 100 04/13/17 12:00 04/13/17 12:00 04/13/17 12:00 04/13/17 12:00 04/13/17 12:00 Laboratory Results 04/13/17 04:15 04/12/17 04/13/17 04/14/17 05:59 05:59 05:59 Intake Total 3103 3829 Output Total 2825 3800 Balance 278 29 PT 12.6 SEC (12.0-15.0) 04/08/17 16:58 INR 0.92 (0.83-1.16) 04/08/17 16:58 Allergies/Adverse Reactions: No Known Allergies Allergy (Verified 04/08/17 17:00)
[2017-04-13 13:44] LABS: POTASSIUM 4.1 mEq/L (3.5-5.2)
[2017-04-13] MEDS: FUROSEMIDE 20 MG/2 ML VIAL IVP SCH ×2 (15:13→22:53)
[2017-04-13] MEDS: ACETAMINOPHEN 650 MG/20.3 ML UDCUP TUBE PRN ×2 (15:13→21:14)
[2017-04-13] MEDS ORDERED: amLODIPine BESYLATE 5 MG TAB PO ONE (16:00)
[2017-04-13 19:58] LABS: POTASSIUM 4.1 mEq/L (3.5-5.2)
[2017-04-14] MEDS: ACETAMINOPHEN 650 MG/20.3 ML UDCUP TUBE PRN ×3 (03:34→20:27)
[2017-04-14 05:42] LABS: % IMMATURE GRANULYOCYTES 0.3 % (0.0-1.1); ABSOLUTE IMMATURE GRANULOCYTES 0.03 10^3/uL (0.00-0.10); ADD DIFF? NO; ADD MORPH? NO; ADD SCAN? NO; ATYPICAL LYMPHOCYTE FLAG 20 (0-99); FRAGMENT RBC FLAG 0 (0-99); HEMATOCRIT 39.6 % (38.0-47.0); HEMOGLOBIN 12.5 g/dL (12.6-16.3); LEFT SHIFT FLG 40 (0-99); LIPEMIA HEMOLYSIS FLAG 80 (0-99); MEAN CELL HEMOGLOBIN 24.8 pg (27.9-34.1); MEAN CELL HEMOGLOBIN CONCENTR. 31.6 g/dL (32.4-36.7); MEAN CELL VOLUME 78.6 fL (81.5-99.8); PLATELET CLUMPS FLAG 0 (0-99); PLATELET COUNT 260 10^3/uL (150-400); RED BLOOD CELL COUNT 5.04 10^6/uL (4.18-5.33); RED CELL DISTRIBUTION WIDTH 16.2 % (11.5-15.2)
[2017-04-14] MEDS: FUROSEMIDE 20 MG/2 ML VIAL IVP SCH ×3 (05:43→21:57)
[2017-04-14] MEDS: niCARdipine/NACL 200 ML IV SCH ×5 (05:44→22:11)
[2017-04-14 06:08] LABS: ANION GAP 12 mEq/L (8-16); CALCIUM 9.1 mg/dL (8.5-10.4); CARBON DIOXIDE 30 mEq/l (22-31); CHLORIDE 108 mEq/L (97-110); CREATININE 0.7 mg/dL (0.6-1.0); GLOMERULAR FILTRATION RATE > 60; GLUCOSE 145 mg/dL (70-100); MAGNESIUM 1.8 mg/dL (1.6-2.3); POTASSIUM 3.9 mEq/L (3.5-5.2); SODIUM 150 mEq/L (134-144)
[2017-04-14] MEDS ORDERED: POTASSIUM Cl (KCl) 50 ML IV ONE (06:46)
[2017-04-14] MEDS ORDERED: MAGNESIUM SULF 1 GM/DEXTROSE 100 ML IV ONE (06:50)
[2017-04-14] MEDS ORDERED: POTASSIUM Cl (KCl) 20 MEQ in NS 50 ML IV ONE ×2 (07:00→17:22)
[2017-04-14] MEDS: INSULIN LISPRO 100 UNIT/ML SC SCH ×3 (09:59→18:14)
--- NOTE | 2017-04-14 10:02 | NEUSURGPN ---
Assessment/Plan: Assessment: 51 yo female that is admitted to with HTN and ICB to brainstem Plan: -CT initially to 2nd CT shows some progression of bleed. 3rd CT is stable. Will get MRI brain per Dr Breaux request when able -CTH Friday stable -neuro stable, pt on less Cardene -on TPN -Only following commands on the left sided. RUE very weak and not following commands -continue to keep SBP less than 140 -elevate HOB -pending MRI of the brain -call with any questions or concerns -Discussed with Dr. Knight and will try and obtain brain MRI once stable from a respiratory stand point. Subjective: Unable to obtain Objective: On CPAP, PERRLA. follows commands in LUE. moves BUE spontaneously. LUE poor tone , not squeezing hand or following other commands. Catheter Insertion Date: 04/08/17 Neurosurgery Physical Exam - Vitals, I&O, Labs I and O 04/13/17 04/14/17 04/15/17 05:59 05:59 05:59 Intake Total 3829 3709 Output Total 3800 4900 Balance 29 -1191 Weight 93.7 kg 96.7 kg 96.7 kg Intake: IV Intake (ml) 926 IV Infused (ml) 2205 1714 niCARdipine/NACL 200 ml @ 2205 1714 Titrate IV CONT VIANEY Rx#: [id number] Tube Feeding (ml) 498 1394 Tube Flush (ml) 200 601 Output: Urine (ml) 3800 4900 Catheter 3800 4900 Vital Signs Temp Pulse Resp BP Pulse Ox 38.7 C H 93 26 H 142/66 H 92 04/14/17 06:00 04/14/17 06:00 04/14/17 06:00 04/14/17 09:56 04/14/17 06:00 Laboratory Results 04/14/17 05:35 04/14/17 05:35 ICD10 Worksheet Patient Problems: Problems Problem Status Onset Acute cerebral hemorrhage Acute
[2017-04-14] MEDS ORDERED: VANCOMYCIN 1.25 GM in D5W 250 ML IV SCH (12:00)
[2017-04-14] MEDS: PIPERACILLIN/TAZO 3.375 GM/DEX 50 ML IV SCH ×2 (12:43→18:17)
--- NOTE | 2017-04-14 13:28 | HOSPPROG ---
Hospitalist Progress Note Assessment/Plan: 51 yo female with untreated HTN admitted for intracranial hemorrhage. # Intracranial Brainstem Hemorrhage -Not a surgical candidate--No progression per latest CT -NSG following -ordered MRI for today - cont careful BP control # Acute hypoxic respiratory failure- extubated 04/09- suspect multifactorial - OHS/JANE and pneumonia- 97% on 100% Fio2 CXR (personally reviewed and interpreted) query right lower lobe infiltrate -cont BiPAP - starting broad spectrum Abx - sputum cultures ordered - cont IV lasix Q8 # Fevers - suspect central - however cannot rule out related to underlying pneumonia - starting Abx - follow clinically - cont APAP # Volume overload -continue Lasix IV as ordered # Hypernatremia - free water deficit is 2L - increase free water with TF's # Dysphagia- cont Tube feeds # Leukocytosis- suspect 2/2 evolving pneumonia - sputum cultures ordered -starting broad spectrum Antibiotics # HTN- SBP > 180 currently - restarting nicardipine gtt -transition to PO Amlodipine -Cont Nicardapine PRN # Abnormal EKG (Slight ST elevation in Anterior Leads) and elevated troponin - TTE c/w global hypercontractility. No wall abnormalities. LVER 72% -Cards evaluated patient yesterday, cannot r/o ACS, but given her current state, she is not a candidate for intervention, AC, or antiplatelet therapy -Can start a low dose aspirin once Ok by NS # FEN - cont TF's with free fluid # proph - cont SCD's # dispo - > 2 MN as remains critically ill requiring ICU level care and monitoring I have discussed the case with Dr. Gillespie - we will start broad spectrum Abx today Subjective: no events overnight Objective: Vital Signs Temp Pulse Resp BP Pulse Ox 38.7 C H 113 H 27 H 144/96 H 97 04/14/17 10:00 04/14/17 10:00 04/14/17 10:00 04/14/17 10:00 04/14/17 10:00 Laboratory Results 04/14/17 05:35 04/14/17 05:35 04/13/17 04/14/17 04/15/17 05:59 05:59 05:59 Intake Total 3829 3709 Output Total 3800 4900 1300 Balance 29 -1191 -1300 PT 12.6 SEC (12.0-15.0) 04/08/17 16:58 INR 0.92 (0.83-1.16) 04/08/17 16:58 - Physical Exam Constitutional: obese Eyes: anicteric sclera Ears, Nose, Mouth, Throat: dry mucous membranes Cardiovascular: regular rate and rhythym Respiratory: no respiratory distress, rhonchi Gastrointestinal: normoactive bowel sounds, soft, non-tender abdomen Genitourinary: no bladder fullness Skin: warm Musculoskeletal: No asymmetric calves Neurologic: No AAOx3 Psychiatric: No agitated Lymph, Heme, Immunologic: no cervical LAD ICD10 Worksheet Patient Problems: Problems Problem Status Onset Acute cerebral hemorrhage Acute
[2017-04-14] MEDS: VANCOMYCIN 1.25 GM in D5W 250 ML IV SCH (14:20)
--- NOTE | 2017-04-14 15:30 | PDINTPN ---
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 Slightly weaker on the left today. For MRI. Off sedation. Pneumonia. New problem today. She has lots of secretions associated with an increasing right lower lobe infiltrate. With altered mental status I feel this likely represents aspiration pneumonia. Antibiotics to cover nosocomial organisms initiated. Respiratory failure: O2 needs down to 40% FIO2. Having JANE likely related to CVA and obesity (likely had some degree of JANE prior to CVA). Improved with BiPAP, but if unable to protect airway and has persistent obstruction on BiPAP, may need to be reintubated. HTN: Controlled on nicardipine drip. Will add metoprolol as the nicardipine drip needs to be weaned if possible. Anemia: Hgb stable today. Hypernatremia: Sodium continues to increase, 151 today. Nutrition: On tube feedings DVT prophylaxis: SCDs. Anticoagulation contraindicated secondary to intracerebral hemorrhage Plan: Continue BiPAP pressures to treat/eliminate snoring. Continue TF. Will add hypotonic saline with quarter normal and potassium, increase H2O flushes for hypernatremia. Follow sodium. Follow BP, titrate nicardipine, continue amlodipine and Lasix. Add metoprolol IV for now, change to NG in next 24-48 hours. Continue following Is and Os closely aiming for negative fluid balance. Follow lab, CXR, ABG as needed. Await MRI results. 35 min of critical care time spent directly with the patient. Discussed with nursing, RT, hospitalist, and ICU multi disciplinary team. Subjective: Sedated, on BiPAP. Arouses. Objective: Vital Signs Temp Pulse Resp BP Pulse Ox 38.2 C 105 H 31 H 156/77 H 95 04/14/17 14:00 04/14/17 14:00 04/14/17 14:00 04/14/17 14:00 04/14/17 14:00 Laboratory Results 04/14/17 05:35 04/13/17 04/14/17 04/15/17 05:59 05:59 05:59 Intake Total 3829 3709 Output Total 3800 4900 1300 Balance 29 -1191 -1300 PT 12.6 SEC (12.0-15.0) 04/08/17 16:58 INR 0.92 (0.83-1.16) 04/08/17 16:58 Laboratory Tests 04/11/17 04/14/17 11:45 05:35 VBG pH 7.37 VBG O2 Saturation 76 H Mixed VBG pCO2 38 L Mixed VBG pO2 45 H Calcium 9.1 Magnesium 1.8 CXR: Hypoventilatory changes with increasing right lower lobe infiltrate or atelectasis. Physical Exam - Physical Exam General Appearance: mild distress (On BiPAP), obtunded (Arouses), obese EENT: other (BiPAP in place) Neck: No normal inspection (Large neck) Respiratory: lungs clear (Anteriorly), decreased breath sounds (At both bases), rhonchi (Present centrally in trachea, upper airway) Cardiac/Chest: tachycardia (Sinus) Abdomen: normal bowel sounds (Present, distant), non-tender, soft (Obese) Pelvic Exam: other (Pino catheter in place, output greater than input last 24 hr.) Extremities: pedal edema Neuro/Psych: cognition abnormalities (Hard to assess, remains somnolent), No no motor/sensory deficits (Left side weaker than right) ICD10 Worksheet Patient Problems: Problems Problem Status Onset Acute cerebral hemorrhage Acute
[2017-04-14] MEDS: METOPROLOL TARTRATE 5 MG/5 ML INJ IVP SCH ×2 (15:41→18:17)
[2017-04-14 15:44] LABS: POTASSIUM 3.7 mEq/L (3.5-5.2)
[2017-04-14] MEDS ORDERED: GADOBUTROL 10 ML VIAL IVP ONE (16:21)
[2017-04-14] MEDS: IPRATROPIUM/ALBUTEROL 3 ML DEYVIAL IH SCH ×2 (16:36→22:48)
[2017-04-14] MEDS ORDERED: METOPROLOL TARTRATE 5 MG/5 ML INJ IVP SCH (18:00)
[2017-04-14 19:10] LABS: POTASSIUM 4.3 mEq/L (3.5-5.2)
[2017-04-15] MEDS: VANCOMYCIN 1.25 GM in D5W 250 ML IV SCH ×2 (00:07→13:01)
[2017-04-15] MEDS: niCARdipine/NACL 200 ML IV SCH ×7 (00:07→13:50)
[2017-04-15] MEDS: METOPROLOL TARTRATE 5 MG/5 ML INJ IVP SCH ×4 (00:07→20:05)
[2017-04-15] MEDS: ACETAMINOPHEN 650 MG/20.3 ML UDCUP TUBE PRN ×3 (00:07→09:56)
[2017-04-15] MEDS: PIPERACILLIN/TAZO 3.375 GM/DEX 50 ML IV SCH ×4 (00:07→20:04)
[2017-04-15 05:51] LABS: ANION GAP 11 mEq/L (8-16); CALCIUM 8.8 mg/dL (8.5-10.4); CARBON DIOXIDE 29 mEq/l (22-31); CHLORIDE 107 mEq/L (97-110); CREATININE 0.7 mg/dL (0.6-1.0); GLOMERULAR FILTRATION RATE > 60; GLUCOSE 153 mg/dL (70-100); MAGNESIUM 2.2 mg/dL (1.6-2.3); POTASSIUM 3.7 mEq/L (3.5-5.2); SODIUM 147 mEq/L (134-144)
[2017-04-15 05:57] LABS: HEMATOCRIT 37.3 % (38.0-47.0); HEMOGLOBIN 11.8 g/dL (12.6-16.3); MEAN CELL HEMOGLOBIN 25.3 pg (27.9-34.1); MEAN CELL HEMOGLOBIN CONCENTR. 31.6 g/dL (32.4-36.7); RED BLOOD CELL COUNT 4.66 10^6/uL (4.18-5.33); RED CELL DISTRIBUTION WIDTH 15.8 % (11.5-15.2)
[2017-04-15] MEDS: FUROSEMIDE 20 MG/2 ML VIAL IVP SCH ×3 (06:11→22:45)
[2017-04-15] MEDS: IPRATROPIUM/ALBUTEROL 3 ML DEYVIAL IH SCH ×3 (06:21→17:16)
[2017-04-15] MEDS ORDERED: POTASSIUM Cl (KCl) 50 ML IV ONE (07:38)
--- NOTE | 2017-04-15 07:40 | NEUSURGPN ---
Assessment/Plan: Assessment: 51 yo female that is admitted to IM with HTN and ICB to brainstem Plan: -3rd CT is stable. -MRI brain completed: overall similar appearance to most recent HCT with more remote focus of parenchymal hemorrhage involving posterior limb of R internal capsule -neuro stable, pt on less Cardene, oral antiHTNs via tube feeds -on TPN -RUE very weak and not following commands, LUE/LLE, RLE follows commands - squeezes hands, wiggles toes. -continue to keep SBP less than 140 -elevate HOB -call with any questions or concerns -Discussed with Dr. Knight, he will review MRI brain today. Subjective: Unable to obtain Objective: On BIPAP Awakens easily PERRL - 2mm reactive Follows commands with LUE/LLE/RLE No movement RUE Urinary Catheter in Place: Yes Urinary Catheter Indication: Other (Use Comment) (Not ambulating) Catheter Insertion Date: 04/08/17 - Physician Discussed Patient with Dr.: Other ([place]) Neurosurgery Physical Exam - Vitals, I&O, Labs I and O 04/14/17 04/15/17 04/16/17 05:59 05:59 05:59 Intake Total 3709 3113 Output Total 4900 3675 Balance -1191 -562 Weight 96.7 kg 96.7 kg 95 kg Intake: IV Infused (ml) 1714 2653 Magnesium Sulf 1 gm/ 100 Dextrose 100 ml @ 100 mls /hr IV ONCE ONE Rx#: [id number] POTASSIUM Cl (KCl) 20 meq 50 In Ns 50 ml @ 25 mls/hr IV ONCE ONE Rx#: [id number] Piperacillin/Tazo 3.375 154 gm/Dex 50 ml @ 100 mls/hr IV Q6HRS VIANEY Rx#: [id number] Vancomycin 1.25 gm In D5w 750 250 ml @ 166.67 mls/hr IV Q12H VIANEY Rx#: [id number] niCARdipine/NACL 200 ml @ 1714 1599 Titrate IV CONT VIANEY Rx#: [id number] Tube Feeding (ml) 1394 360 Tube Flush (ml) 601 100 Output: Urine (ml) 4900 3675 Catheter 4900 3675 Vital Signs Temp Pulse Resp BP Pulse Ox 38.3 C 94 36 H 156/55 H 93 04/15/17 07:00 04/15/17 07:00 04/15/17 07:00 04/15/17 07:00 04/15/17 07:00 Laboratory Results 04/15/17 04:10 04/15/17 04:10 ICD10 Worksheet Patient Problems: Problems Problem Status Onset Acute cerebral hemorrhage Acute
[2017-04-15] MEDS ORDERED: POTASSIUM Cl (KCl) 20 MEQ in NS 50 ML IV ONE (08:00)
[2017-04-15 09:58] LABS: BASE EXCESS 3.1 mEq/L (-2.5-2.5); BICARBONATE 29 mEq/L (22-26); MEASURED OXYGEN SATURATION 97 % (92-95); PCO2 50 mmHg (34-38); PO2 94 mmHg (65-75); TCO2 30 mEq/L (23-27)
[2017-04-15 09:59] LABS: BIPAP YES
[2017-04-15 10:00] LABS: EXP PRESSURE 6; I-TIME 1 SECS; INSP PRESSURE 18; O2 CONCENTRATIION 100 % (0-100); P/F RATIO 94 RATIO
--- NOTE | 2017-04-15 11:25 | ASMTCMCOM ---
CM Note CM Note Notes: 51 year old female had a brain stem stroke-untreated HTN. Daughter asked for a letter for patient's mother and brother who live in [place] to come and be by her side. Letter written and signed by Airfreight Loading Supervisor. Patient getting close to needed intubation, Palliative Mtg at 1:00 with extended family present. Unfortunately, patient is not a citizen and doesn't have insurance to assist when she leaves the hospital setting. Care would fall to her family. Date Signed: 04/15/2017 11:24 AM Electronically Signed By:Sonja Herrera LCSW
[2017-04-15] MEDS: hydrALAZINE 10 MG TAB PO SCH ×2 (11:36→16:15)
[2017-04-15] MEDS: INSULIN LISPRO 100 UNIT/ML SC SCH ×2 (12:18→20:21)
--- NOTE | 2017-04-15 12:20 | PDINTPN ---
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 Requiring no sedation. Pneumonia. Left lower lobe, probable aspiration, associated persistent secretions which she has difficulty clearing. Requiring nasotracheal suction intermittently. Nasal trumpet in placed. On antibiotics for nosocomial organisms. Cultures negative to date Respiratory failure: O2 needs higher today, 100% on BiPAP. Unable to come off of BiPAP at this time. Has JANE likely related to CVA and obesity (likely had some degree of JANE prior to CVA). If patient's family wants to continue aggressive care she will need to be Re intubated. HTN: Controlled on nicardipine drip, plus metoprolol, amlodipine, and Lasix. Will add hydralazine per NG along with a clonidine patch. Anemia: Mild. Hgb stable at 37. Hypernatremia: Sodium improved, 147 today. Nutrition: On tube feedings DVT prophylaxis: SCDs. Anticoagulation contraindicated secondary to intracerebral hemorrhage Plan: Continue BiPAP ventilatory/respiratory support. Continue nasotracheal suction as needed. She will require intubation if we are going to continue aggressive care. For a palliative care conference today with the patient's son and daughter. A sister lives in [place] and mother in [place]. Both are apparently trying to make their way here? Prognosis from a neurologic standpoint is very poor. Transitioning to comfort care needs to be discussed with the family. Until further decisions are made we will continue TF and hypotonic saline along with H2O flushes for hypernatremia. Follow sodium. Follow BP, titrate nicardipine, continue amlodipine and Lasix. Continue metoprolol IV for now, add clonidine patch and hydralazine. Continue following Is and Os closely aiming for negative fluid balance. Follow lab, CXR, ABG as needed. 40 min of critical care time spent directly with the patient. Discussed with the patient's son, palliative care, nursing, RT, hospitalist, and ICU multi disciplinary team. Subjective: On BiPAP, tachypneic, appears to be in mild distress. Still has lots of secretions. Not responsive, will not open eyes for me. Moves left side greater than right. Objective: Vital Signs Temp Pulse Resp BP Pulse Ox 38.5 C H 107 H 37 H 154/75 H 98 04/15/17 11:00 04/15/17 11:32 04/15/17 11:00 04/15/17 11:32 04/15/17 11:00 Microbiology 04/14/17 22:50 Gram Stain - Final Lung Bilateral - Bronchial Washings Laboratory Results 04/15/17 04:10 04/15/17 04:10 04/14/17 04/15/17 04/16/17 05:59 05:59 05:59 Intake Total 3709 3113 Output Total 4900 8205 Balance -1191 -562 PT 12.6 SEC (12.0-15.0) 04/08/17 16:58 INR 0.92 (0.83-1.16) 04/08/17 16:58 Laboratory Tests 04/15/17 04/15/17 04:10 09:45 pCO2 50 H pO2 94 H ABG pH 7.37 ABG PO2/FiO2 Ratio 94 O2 Concentration % 100 PEEP 6 Inspiratory Pressure 18 Mode BiPAP YES Calcium 8.8 Magnesium 2.2 MRI yesterday: Large pontine bleed is present, with evidence of an older bleed in the right internal capsule CXR: Pending Ultrasound right upper extremity: Small nonocclusive superficial clot in the basilic. Physical Exam - Physical Exam General Appearance: mild distress, obese, other (On BiPAP) EENT: normal ENT inspection (NG tube in place), other (BiPAP in place) Neck: normal inspection (Large neck) Respiratory: respiratory distress (Mild), decreased breath sounds (Bilaterally) , rhonchi (Scattered rhonchi present bilaterally), No lungs clear, No normal breath sounds (Tachypneic, shallow respirations) Cardiac/Chest: tachycardia (Sinus, distant heart tones) Abdomen: non-tender, soft (Obese), other (Tolerating tube feedings), No normal bowel sounds (Decreased, present) Pelvic Exam: other (Pino catheter, good urine output) Skin: normal color, warm/dry Extremities: pedal edema Neuro/Psych: cognition abnormalities (Unresponsive to commands, nonverbal, eyes closed. Will move extremities to noxious stimuli), No no motor/sensory deficits (Deficits present, unchanged) ICD10 Worksheet Patient Problems: Problems Problem Status Onset Acute cerebral hemorrhage Acute
[2017-04-15 13:06] LABS: POTASSIUM 4.1 mEq/L (3.5-5.2)
--- NOTE | 2017-04-15 14:15 | PDPCPN ---
Palliative Care Progress Note Assessment/Plan: Referring provider: Dr Gillespie Reason for consult: Complex medical decision making Symptom control HPI: Lisbeth Davis is a 51 yo with PMH HTN admitted to the hospital for acute weakness. Found to have acute ICB at the brainstem with no clinical change on most recent MRI. Initially was intubated due to not being able to protect her airway, successfully extubated but with worsening clinical status being treated for possible aspiration PNA. Respiratory status has been worsening with possible PNA now on 100% bipap. Also on multiple medications to address ongoing HTN. Prognosis is poor per ICU team. Palliative care consulted for complex medical decision making. Met with son Cristian, daughter Anita, multiple family members and friends along with parts interpreter, bedside RN, and social work. Family and friends described Lisbeth as a very positive and social person who liked to entertain and spend time with family and friends. Discussed the clinical status with worsening respiratory status and overall poor neurological recovery. Anita stated she and her mom have had discussions about end of life wishes and Lisbeth has said she would never want to live on machines or in a dependent state "If that were to happen she said let me go". Discussed options including continued aggressive medical interventions with intubation vs comfort care only and a natural course of disease. The family would like time to have other family come in and say their goodbyes. They would like intubation for short term in order for this to occur but would not want resuscitation if her heart were to stop. Assessment: Physical: - Pain: appears uncomfortable at times - tylenol PRN - morphine PRN - Dyspnea: - on bipap, family would like intubation if needed to allow for time for family to come in and say their goodbyes - morphine as above if needed - weakness - nursing support - turn and reposition - constipation - at risk with opiates, continue bowel regimen Emotional/psychological: Has a lot of support from many family and friends Advanced Care Planning: Is patient decisional?: No Code Status: No CPR, intubation ok POA: Rio Foster is proxy Plan: Family would like to continue with supportive medical interventions to allow time for family to come and say their goodbyes. Once family has come (her mother), they will transition to comfort care only. For now would like intubation if needed to allow for time but would not want resuscitation if her heart does stop. 04/15/17 15:18 Subjective: did not respond verbally Objective: Social History: From [place], has lived here for 30 years. 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 Has 3 children, 1 daughter and 1 son local and very involved. Has many friends and extended family. Enjoys gambling and playing [employer] and [employer]. Also has a passion for music and singing. Medication list reviewed ROS: unable to assess Functional assessment: PPS: 30% Functional status: dependent on ADLs, IADLs Vital Signs Temp Pulse Resp BP Pulse Ox 38.3 C 105 H 32 H 121/106 H 99 04/15/17 14:00 04/15/17 14:00 04/15/17 14:00 04/15/17 14:00 04/15/17 14:00 Microbiology 04/14/17 22:50 Gram Stain - Final Lung Bilateral - Bronchial Washings Laboratory Results 04/15/17 04:10 04/15/17 12:30 04/14/17 04/15/17 04/16/17 05:59 05:59 05:59 Intake Total 3709 3113 Output Total 4900 3675 Balance -1191 -562 PT 12.6 SEC (12.0-15.0) 04/08/17 16:58 INR 0.92 (0.83-1.16) 04/08/17 16:58 Physical Exam - Physical Exam General Appearance: mild distress, other (did not respond to commands) Respiratory: respiratory distress (mild), No accessory muscle use Skin: normal color, warm/dry Extremities: No pedal edema Neuro/Psych: other (did not respond to commands for me, at times will respond to some comands ) ICD10 Worksheet Patient Problems: Problems Problem Status Onset Acute cerebral hemorrhage Acute Palliative care encounter Acute - ICD10 Problem Qualifiers (1) Palliative care encounter
[2017-04-15] MEDS ORDERED: LIDOCAINE 2% JELLY 5 ML TUBE TP ONE (14:43)
[2017-04-15] MEDS ORDERED: LIDOCAINE 1% 300 MG/30 ML SDV MISC ONE (14:43)
[2017-04-15] MEDS ORDERED: MIDAZOLAM 2 MG/2 ML VIAL ONE (14:48)
[2017-04-15] MEDS ORDERED: LIDOCAINE 2% JELLY 20 ML (UROJECT) ONE (14:58)
[2017-04-15] MEDS: PROPOFOL/EMULSION 100 ML IV SCH (15:08)
[2017-04-15] MEDS: fentaNYL/NACL 100 ML IV SCH (15:09)
[2017-04-15] MEDS ORDERED: MAGNESIUM HYDROXIDE 30 ML UDCUP PO PRN (15:40)
[2017-04-15] MEDS ORDERED: POLYETHYLENE GLYCOL 3350 17 GM PKT PO PRN (15:40)
[2017-04-15] MEDS ORDERED: BISACODYL 10 MG SUPP PR PRN (15:40)
[2017-04-15] MEDS ORDERED: LACTULOSE 20 GM/30 ML UDCUP PO PRN (15:40)
--- NOTE | 2017-04-15 15:45 | HOSPPROG ---
Hospitalist Progress Note Assessment/Plan: 51 yo female with untreated HTN admitted for intracranial hemorrhage. # Intracranial Brainstem Hemorrhage -Not a surgical candidate--No progression per latest CT MRI brain (personally reviewed and interpreted) stable large intracranial hemorrhage -NSG following - cont careful BP control- working to transition to meds per tube # Acute hypoxic respiratory failure- extubated 04/09- suspect multifactorial - OHS/JANE and pneumonia- 99% on 100% Fio2 CXR (personally reviewed and interpreted) query right lower lobe infiltrate- sputum and BCX NGTD overall respiratory status seems worse today - greater difficulty managing secretions - cont BiPAP - cont broad spectrum Abx - cont IV lasix Q8 # Fevers - suspect central - however cannot rule out related to underlying pneumonia- remain persistent - cont Abx # Volume overload -continue Lasix IV as ordered # Hypernatremia - sodium 150-> 147 with increased free water - - increase free water with TF's # Dysphagia- cont Tube feeds # Leukocytosis- suspect 2/2 evolving pneumonia - sputum cultures and BCx NGTD - WBC increased to 16 today -starting broad spectrum Antibiotics # HTN- SBP > 180 currently - cont nicardipine gtt - cont clonidine patch and meds per tube -wean Nicardapine as able # Abnormal EKG (Slight ST elevation in Anterior Leads) and elevated troponin - TTE c/w global hypercontractility. No wall abnormalities. LVER 72% -Cards evaluated patient yesterday, cannot r/o ACS, but given her current state, she is not a candidate for intervention, AC, or antiplatelet therapy -Can start a low dose aspirin once Ok by NS # FEN - cont TF's with free fluid # proph - cont SCD's # dispo - Palliative care consulted today and recommendations for comfort care made from the medical team - working with Case management to get Mother from [facility] to see before withdrawing care.- pt made DNR I have discussed the case with Dr. Gillespie - we will direct care toward ultimate goals of comfort Subjective: increased secretions overnight Objective: Vital Signs Temp Pulse Resp BP Pulse Ox 38.3 C 106 H 32 H 141/110 H 99 04/15/17 15:00 04/15/17 15:00 04/15/17 15:00 04/15/17 15:00 04/15/17 15:00 Microbiology 04/14/17 22:50 Gram Stain - Final Lung Bilateral - Bronchial Washings Laboratory Results 04/15/17 04:10 04/15/17 12:30 04/14/17 04/15/17 04/16/17 05:59 05:59 05:59 Intake Total 3703 3115 Output Total 9601 0150 1999 [facility] -1191 -562 -1999 PT 12.6 SEC (12.0-15.0) 04/08/17 16:58 INR 0.92 (0.83-1.16) 04/08/17 16:58 - Physical Exam Constitutional: appears nourished Eyes: anicteric sclera Ears, Nose, Mouth, Throat: dry mucous membranes Cardiovascular: regular rate and rhythym Respiratory: expiratory wheeze, rhonchi Gastrointestinal: normoactive bowel sounds Genitourinary: no bladder fullness Skin: warm Musculoskeletal: No asymmetric calves Neurologic: No AAOx3 Psychiatric: other (sedate) Lymph, Heme, Immunologic: no cervical LAD ICD10 Worksheet Patient Problems: Problems Problem Status Onset Acute cerebral hemorrhage Acute Palliative care encounter Acute
[2017-04-15 16:45] LABS: BASE EXCESS 4.7 mEq/L (-2.5-2.5); BICARBONATE 29 mEq/L (22-26); MEASURED OXYGEN SATURATION 99 % (92-95); PCO2 41 mmHg (34-38); PO2 123 mmHg (65-75); SIMV YES; TCO2 30 mEq/L (23-27)
[2017-04-15 16:46] LABS: END TIDAL CO2 53; O2 CONCENTRATIION 100 % (0-100); P/F RATIO 123 RATIO; PATIENT RATE 16; PRESSURE SUPPORT 7
[2017-04-15] MEDS ORDERED: fentaNYL/NACL 100 ML IV SCH (17:00)
[2017-04-15] MEDS ORDERED: LACTULOSE 20 GM/30 ML UDCUP TUBE PRN (17:00)
[2017-04-15] MEDS ORDERED: PROPOFOL/EMULSION 100 ML IV SCH (17:00)
[2017-04-15] MEDS ORDERED: MAGNESIUM HYDROXIDE 30 ML UDCUP TUBE PRN (17:00)
[2017-04-15 19:19] LABS: POTASSIUM 3.7 mEq/L (3.5-5.2)
[2017-04-15] MEDS: ALBUTEROL 200 PUFFS/18 GM MDI IH SCH (20:51)
[2017-04-15] MEDS ORDERED: SENNOSIDES/DOCUSATE SODIUM TAB PO SCH (21:00)
[2017-04-15] MEDS: SENNOSIDES 17.6 MG/10 ML UDL TUBE SCH (22:45)
[2017-04-15] MEDS: hydrALAZINE 10 MG TAB TUBE SCH (22:45)
[2017-04-16] MEDS: ALBUTEROL 200 PUFFS/18 GM MDI IH SCH ×7 (00:01→23:53)
[2017-04-16] MEDS ORDERED: POTASSIUM Cl (KCl) 20 MEQ in NS 50 ML IV ONE (00:30)
[2017-04-16] MEDS: PIPERACILLIN/TAZO 3.375 GM/DEX 50 ML IV SCH ×3 (00:42→11:59)
[2017-04-16] MEDS: VANCOMYCIN 1.25 GM in D5W 250 ML IV SCH (00:42)
[2017-04-16] MEDS: METOPROLOL TARTRATE 5 MG/5 ML INJ IVP SCH ×4 (00:42→18:21)
[2017-04-16] MEDS: ACETAMINOPHEN 650 MG/20.3 ML UDCUP TUBE PRN ×2 (00:53→14:25)
[2017-04-16] MEDS: INSULIN LISPRO 100 UNIT/ML SC SCH ×2 (00:59→05:30)
--- NOTE | 2017-04-16 03:24 | GPN ---
[f rep st] PROCEDURE NOTE DATE OF PROCEDURE: 04/15/2017 PROCEDURE PERFORMED: Intubation. INDICATION: Respiratory failure, BiPAP dependent, increasing secretions, and tachypnea. DESCRIPTION OF PROCEDURE: The procedure was done in the intensive care unit. Informed consent was obtained from the patient's family. No conscious sedation was required. Appropriate time-out was done. Approximately 15 cc of 1% lidocaine was used for topical anesthesia. The fiberoptic bronchoscope was passed via bite block orally with an Oxymizer mask in place. The vocal cords were identified and cannulated with the scope. A 7.5 endotracheal tube was passed over the scope and left with its tip approximately 3 cm above the heber. The scope was removed. The patient was stabilized and put on the ventilator. Oxygen saturations dipped briefly into the mid 70s during the procedure, but came back up into the 80s and was 90% immediately after intubation when the scope was removed. They came up further with bag mask and mechanical ventilation. IMPRESSION: Successful endotracheal intubation. /[id number]/MODL MTDD
--- NOTE | 2017-04-16 03:28 | GPN ---
[f rep st] PROCEDURE NOTE DATE OF PROCEDURE: 04/15/2017 PROCEDURE PERFORMED: Bronchoscopy. INDICATION: Respiratory failure, BiPAP dependent, increasing secretions, and tachypnea. DESCRIPTION OF PROCEDURE: The procedure was performed after the patient's endotracheal intubation. The fiberoptic bronchoscope was passed via an adaptor on the end of the patient's endotracheal tube into the distal trachea. The scope was passed in the lower tracheobronchial tree bilaterally. There was a moderate amount of secretions found bilaterally. These were somewhat bloody secondary to the patient's intubation. There were no thick mucous plugs. Secretions were removed with suction and lavage. A sample was sent to the lab for culture. The patient tolerated the procedure well and there were no complications. Oxygen saturations and vital signs remained stable throughout the procedure. IMPRESSION: Normal endobronchial anatomy with bilateral moderate secretions consistent with bronchial pneumonia. Appropriate cultures were sent. /[id number]/MODL MTDD
[2017-04-16 04:41] LABS: % IMMATURE GRANULYOCYTES 1.4 % (0.0-1.1); ABSOLUTE IMMATURE GRANULOCYTES 0.19 10^3/uL (0.00-0.10); ABSOLUTE NRBC COUNT 0.02 10^3/uL (0-0.01); ADD DIFF? NO; ADD MORPH? NO; ADD SCAN? NO; ATYPICAL LYMPHOCYTE FLAG 30 (0-99); FRAGMENT RBC FLAG 0 (0-99); HEMATOCRIT 34.1 % (38.0-47.0); HEMOGLOBIN 10.8 g/dL (12.6-16.3); LEFT SHIFT FLG 10 (0-99); LIPEMIA HEMOLYSIS FLAG 80 (0-99); MEAN CELL HEMOGLOBIN 24.9 pg (27.9-34.1); MEAN CELL HEMOGLOBIN CONCENTR. 31.7 g/dL (32.4-36.7); MEAN CELL VOLUME 78.6 fL (81.5-99.8); NRBC-AUTO% 0.1 % (0.0-0.2); PLATELET CLUMPS FLAG 10 (0-99); PLATELET COUNT 285 10^3/uL (150-400); RED BLOOD CELL COUNT 4.34 10^6/uL (4.18-5.33); RED CELL DISTRIBUTION WIDTH 15.5 % (11.5-15.2)
[2017-04-16 04:56] LABS: ALANINE AMINOTRANSFERASE 40 IU/L (9-52); ALBUMIN 2.7 g/dL (3.5-5.0); ALKALINE PHOSPHATASE 100 IU/L (38-126); ANION GAP 10 mEq/L (8-16); ASPARTATE AMINOTRANSFERASE 25 IU/L (14-46); BILIRUBIN,TOTAL 0.5 mg/dL (0.1-1.4); CALCIUM 8.6 mg/dL (8.5-10.4); CARBON DIOXIDE 30 mEq/l (22-31); CHLORIDE 106 mEq/L (97-110); CREATININE 0.7 mg/dL (0.6-1.0); GLOMERULAR FILTRATION RATE > 60; GLUCOSE 172 mg/dL (70-100); POTASSIUM 3.5 mEq/L (3.5-5.2); SODIUM 146 mEq/L (134-144); TOTAL PROTEIN 5.7 g/dL (6.3-8.2)
[2017-04-16] MEDS: FUROSEMIDE 20 MG/2 ML VIAL IVP SCH ×3 (05:29→22:14)
[2017-04-16 05:40] LABS: BASE EXCESS 4.8 mEq/L (-2.5-2.5); BICARBONATE 28 mEq/L (22-26); MEASURED OXYGEN SATURATION 94 % (92-95); PCO2 37 mmHg (34-38); PO2 68 mmHg (65-75); TCO2 29 mEq/L (23-27)
[2017-04-16 05:42] LABS: END TIDAL CO2 47; O2 CONCENTRATIION 40 % (0-100); P/F RATIO 170 RATIO; PATIENT RATE 16; PRESSURE SUPPORT 7; SIMV YES
[2017-04-16] MEDS: hydrALAZINE 10 MG TAB TUBE SCH ×2 (05:48→13:59)
[2017-04-16] MEDS: POTASSIUM Cl (KCl) 10 MEQ in NS 50 ML IV SCH ×3 (06:48→08:00)
[2017-04-16] MEDS: SENNOSIDES 17.6 MG/10 ML UDL TUBE SCH ×2 (08:18→22:15)
--- NOTE | 2017-04-16 08:19 | NEUSURGPN ---
Assessment/Plan: Assessment: 51 yo female that is admitted to IM with HTN and ICB to brainstem Plan: -3rd CT is stable. -MRI brain: overall similar appearance to most recent HCT with more remote focus of parenchymal hemorrhage involving posterior limb of R internal capsule -neuro stable, following commands-wiggle toes, flicker of right hand, patient was reintubated yesterday -continue to keep SBP less than 140 -elevate HOB -family met with palliative care yesterday, awaiting arrival of family from [place] to make decisions on care -call with any questions or concerns -Discussed with Dr. Knight Subjective: unable to obtain Objective: Awakens easily, opens eyes to voice PERRL - 2mm reactive Follows commands with LUE/LLE/RLE Flicker of right fingers Positive Babinski Neuro Check Frequency: per routine Urinary Catheter in Place: Yes Urinary Catheter Indication: Accurate I & O Required Catheter Insertion Date: 04/08/17 - Physician Discussed Patient with Dr.: Other (Dr Knight) Neurosurgery Physical Exam - Vitals, I&O, Labs I and O 04/15/17 04/16/17 04/17/17 05:59 05:59 05:59 Intake Total 3113 3584 Output Total 6665 3775 Balance -562 -191 Weight 96.7 kg 95 kg Intake: IV Intake (ml) 935 IV Infused (ml) 2653 1575 Magnesium Sulf 1 gm/ 100 Dextrose 100 ml @ 100 mls /hr IV ONCE ONE Rx#: [id number] POTASSIUM Cl (KCl) 20 meq 50 In Ns 50 ml @ 25 mls/hr IV ONCE ONE Rx#: [id number] Piperacillin/Tazo 3.375 154 50 gm/Dex 50 ml @ 100 mls/hr IV Q6HRS VIANEY Rx#: [id number] Propofol/Emulsion 100 ml 27 @ Titrate IV CONT VIANEY Rx# :[id number] Vancomycin 1.25 gm In D5w 750 250 250 ml @ 166.67 mls/hr IV Q12H VIANEY Rx#: [id number] fentaNYL/NACL 100 ml @ 27 Per Protocol IV CONT VIANEY Rx#:[id number] niCARdipine/NACL 200 ml @ 1599 1221 Titrate IV CONT VIANEY Rx#: [id number] Tube Feeding (ml) 360 774 Tube Flush (ml) 100 300 Output: Urine (ml) 3675 3775 Catheter 3675 3775 Microbiology 04/14/17 22:50 Gram Stain - Final Lung Bilateral - Bronchial Washings Vital Signs Temp Pulse Resp BP Pulse Ox 38.2 C 86 16 105/53 L 98 04/16/17 07:00 04/16/17 07:00 04/16/17 07:00 04/16/17 07:00 04/16/17 07:00 Laboratory Results 04/16/17 04:28 04/16/17 04:28 ICD10 Worksheet Patient Problems: Problems Problem Status Onset Acute cerebral hemorrhage Acute Palliative care encounter Acute
[2017-04-16] MEDS: INSULIN REGULAR, HUMAN 100 UNIT/1 ML VIAL STANDARD SC SCH ×2 (12:06→18:31)
--- NOTE | 2017-04-16 12:30 | WOCRNPDOC ---
WOCRN Advanced Assessment Note - Skin Integrity Problem, Advanced Assess Nose Pressure Injury Dressing Type: Mepilex Transfer Dressing Description: Intact Exudate Amount: Scant Exudate Color: Reddish/Yellow Exudate Characteristic(s): Serosanguinous Integumentary Issue Intervention: Dressing Changed Dario Wound Tissue: Blanching, Erythema Dario Wound Swelling: Mild Wound Bed Color: Black, Red, Yellow Wound Bed Constitution: Red/[place] - Non Granular Tissue (70%), Mixed Loose & Adhered Slough/Eschar (30%) Site Measurement - Head-to-Toe Length X Width X Depth (cm): 0.5cmx0.6cmx0.1cm ( 0.2cmx0.3cm area of adhered slough/eschar medially) Pressure Injury Stage: Unstageable, After School Program Assistant Related Pressure Injury (Bi- pap mask) Pressure Injury Present on Admit: No (Hospitalist notified) Skin Integrity Problem Comment: Wound dimensions smaller than previous assessment on 04/13. There remains a well-adhered wiyot of slough/eschar in the medial aspect, making the wound unstageable. Remainder of wound bed non- granular smooth tissue. Mild, blanching dario-wound erythema, skin otherwise intact. Patient is now intubated, and source of pressure injury has been removed. Will continue to follow, assessing again on Wednesday 04/18. custodian supervisor Kelly present and assisting.
[2017-04-16 12:40] LABS: POTASSIUM 3.9 mEq/L (3.5-5.2)
[2017-04-16] MEDS ORDERED: POTASSIUM Cl (KCl) 50 ML IV ONE (14:07)
--- NOTE | 2017-04-16 15:56 | PDINTPN ---
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 Prognosis for meaningful recovery remains poor Pneumonia. Left lower lobe, possibly right as well. Cultures negative to date. On broad-spectrum antibiotics, will narrow. Respiratory failure: Intubated yesterday. Stable on the ventilator. On 50% FiO2. Minimal pulmonary secretions. HTN: Blood pressure significantly lower since intubation. Off nicardipine drip , plus metoprolol, amlodipine, clonidine patch, and Lasix. Will stop hydralazine, and cut back or discontinue others as blood pressure dictates. Anemia: Mild. Hgb he slightly down today at 34. Hypernatremia: Sodium improved, 146. Nutrition: On tube feedings DVT prophylaxis: SCDs. Anticoagulation contraindicated secondary to intracerebral hemorrhage Plan: Please see the problem specific plans above. Continue ventilatory support for now. Zosyn and vancomycin, start ertapenem. DC hydralazine, follow blood pressure closely. May need to cut back or discontinue other anti hypertensives if blood pressure decreases further. Continue TF and hypotonic saline along with H2O flushes for hypernatremia. Follow sodium. Continue following Is and Os closely aiming for negative fluid balance. Follow lab, CXR, ABG as needed. Neurologic prognosis is extremely poor for meaningful recovery. As discussed in the palliative care conference, we are providing ventilatory assistance until other family members can get here over the next several days. At that point we will likely transition to comfort care and extubate. 35 min of critical care time spent directly with the patient. Discussed with the patient's son and dtr, Community Development Worker, nursing, RT, hospitalist, and ICU multi disciplinary team. Subjective: Unresponsive, on the ventilator. Appears comfortable. Objective: Vital Signs Temp Pulse Resp BP Pulse Ox 38.5 C H 98 21 H 111/59 L 100 04/16/17 15:00 04/16/17 15:00 04/16/17 15:00 04/16/17 15:00 04/16/17 15:00 Microbiology 04/15/17 16:00 - Final Sputum, Induced/Suctioned 04/14/17 22:50 Gram Stain - Final Lung Bilateral - Bronchial Washings Laboratory Results 04/16/17 04:28 04/16/17 12:02 12/12/17 12/13/17 12/14/17 05:59 05:59 05:59 Intake Total 3113 3584 Output Total 3676 6195 Balance -562 -191 PT 12.6 SEC (12.0-15.0) 04/08/17 16:58 INR 0.92 (0.83-1.16) 04/08/17 16:58 Laboratory Tests 04/16/17 04/16/17 04:28 05:30 pCO2 37 pO2 68 ABG pH 7.49 H ABG O2 Saturation 94 O2 Concentration % 40 Actual Respiration Rate 16 SIMV YES Tidal Volume 570 End Tidal CO2 47 PEEP 5 Pressure Support 7 Calcium 8.6 Magnesium 2.0 Total Bilirubin 0.5 AST 25 ALT 40 Albumin 2.7 L CXR: Bibasilar atelectasis, left greater than right. Lines and tubes in good position. Sputum/blood cultures: Negative to date. Physical Exam - Physical Exam General Appearance: no apparent distress, obtunded, obese, other (On ventilator) EENT: PERRL/EOMI, ET tube, other (NG tube in place. Nasal/oral secretions) Neck: normal inspection Respiratory: lungs clear (Anteriorly), decreased breath sounds (At bases), No rales, No rhonchi Cardiac/Chest: regular rate, rhythm Abdomen: non-tender (Can't assess), soft (Obese), No normal bowel sounds ( Decreased, present) Pelvic Exam: other (Pino catheter in place, good urine output.) Skin: normal color, warm/dry Extremities: pedal edema Neuro/Psych: cognition abnormalities (No obvious neuro changes), No no motor/ sensory deficits ICD10 Worksheet Patient Problems: Problems Problem Status Onset Acute cerebral hemorrhage Acute Palliative care encounter Acute
--- NOTE | 2017-04-16 19:45 | HOSPPROG ---
Hospitalist Progress Note Assessment/Plan: 51 yo female with untreated HTN admitted for intracranial hemorrhage. # Intracranial Brainstem Hemorrhage -Not a surgical candidate--No progression per latest CT MRI brain (personally reviewed and interpreted) stable large intracranial hemorrhage -NSG following -weaned off nicardipine with sedation for vent - cont careful BP control- working to transition to meds per tube # Acute hypoxic respiratory failure- re-intubated 04/15- suspect multifactorial - OHS/JANE and pneumonia- 99% on 100% Fio2 CXR (personally reviewed and interpreted) right lower lobe infiltrate- sputum cx with MRSA and BCX NGTD overall respiratory status seems worse today - greater difficulty managing secretions - cont BiPAP - cont ertapenem and vancomycin - cont IV lasix Q8 # Fevers - suspect central - - remain persistent - cont Abx # Volume overload -continue Lasix IV as ordered # Hypernatremia - sodium 150-> 146 with increased free water - - increase free water with TF's # Dysphagia- cont Tube feeds # Leukocytosis- suspect 2/2 evolving pneumonia - sputum cultures and BCx NGTD - WBC increased to 16 today -starting broad spectrum Antibiotics # HTN- SBP > 180 currently - - cont clonidine patch and meds per tube -wean Nicardapine as able # Abnormal EKG (Slight ST elevation in Anterior Leads) and elevated troponin - TTE c/w global hypercontractility. No wall abnormalities. LVEF 72% -Cards evaluated patient yesterday, cannot r/o ACS, but given her current state, she is not a candidate for intervention, AC, or antiplatelet therapy # FEN - cont TF's with free fluid # proph - cont SCD's # dispo - Palliative care consulted today and recommendations for comfort care made from the medical team - working with Case management to get Mother from [facility] to see before withdrawing care.- pt made DNR I have discussed the case with Dr. Gillespie - pt intubated to assist in stability waiting for family to arrive Subjective: re- intubated Objective: Vital Signs Temp Pulse Resp BP Pulse Ox 38.4 C H 80 15 112/55 L 98 04/16/17 19:00 04/16/17 19:00 04/16/17 19:00 04/16/17 19:00 04/16/17 19:00 Microbiology 04/14/17 22:50 Gram Stain - Final Lung Bilateral - Bronchial Washings 04/15/17 16:00 - Final Sputum, Induced/Suctioned Laboratory Results 04/16/17 04:28 04/16/17 18:00 04/15/17 04/16/17 04/17/17 05:59 05:59 05:59 Intake Total 3110 4800 0163 Output Total 5376 2029 1999 Balance -562 -191 387 PT 12.6 SEC (12.0-15.0) 04/08/17 16:58 INR 0.92 (0.83-1.16) 04/08/17 16:58 - Physical Exam Constitutional: chronically ill appearing, obese Eyes: anicteric sclera Ears, Nose, Mouth, Throat: moist mucous membranes Cardiovascular: regular rate and rhythym Respiratory: inspiratory crackles, rhonchi Gastrointestinal: normoactive bowel sounds Genitourinary: no bladder fullness Skin: warm Musculoskeletal: No asymmetric calves Neurologic: No AAOx3 Psychiatric: No agitated Lymph, Heme, Immunologic: no cervical LAD ICD10 Worksheet Patient Problems: Problems Problem Status Onset Acute cerebral hemorrhage Acute Palliative care encounter Acute
[2017-04-16] MEDS: PROPOFOL/EMULSION 100 ML IV SCH (22:19)
[2017-04-17] MEDS: METOPROLOL TARTRATE 5 MG/5 ML INJ IVP SCH ×3 (00:25→12:33)
[2017-04-17] MEDS: INSULIN REGULAR, HUMAN 100 UNIT/1 ML VIAL STANDARD SC SCH ×4 (00:36→18:39)
[2017-04-17] MEDS: ALBUTEROL 200 PUFFS/18 GM MDI IH SCH ×6 (04:11→23:26)
[2017-04-17 04:27] LABS: BASE EXCESS 1.5 mEq/L (-2.5-2.5); BICARBONATE 24 mEq/L (22-26); MEASURED OXYGEN SATURATION 94 % (92-95); O2 CONCENTRATIION 40 % (0-100); P/F RATIO 195 RATIO; PCO2 35 mmHg (34-38); PO2 78 mmHg (65-75); SIMV YES; TCO2 25 mEq/L (23-27)
[2017-04-17 04:28] LABS: PATIENT RATE 20; PIP 20; PRESSURE SUPPORT 7
[2017-04-17] MEDS: FUROSEMIDE 20 MG/2 ML VIAL IVP SCH ×2 (05:43→22:17)
[2017-04-17 06:10] LABS: % IMMATURE GRANULYOCYTES 1.1 % (0.0-1.1); ABSOLUTE IMMATURE GRANULOCYTES 0.11 10^3/uL (0.00-0.10); ADD DIFF? NO; ADD MORPH? NO; ADD SCAN? NO; ATYPICAL LYMPHOCYTE FLAG 80 (0-99); FRAGMENT RBC FLAG 0 (0-99); HEMATOCRIT 32.7 % (38.0-47.0); HEMOGLOBIN 10.4 g/dL (12.6-16.3); LEFT SHIFT FLG 20 (0-99); LIPEMIA HEMOLYSIS FLAG 80 (0-99); MEAN CELL HEMOGLOBIN 25.1 pg (27.9-34.1); MEAN CELL HEMOGLOBIN CONCENTR. 31.8 g/dL (32.4-36.7); MEAN CELL VOLUME 78.8 fL (81.5-99.8); MEAN PLATELET VOLUME 9.4 fL (8.7-11.7); PLATELET CLUMPS FLAG 0 (0-99); PLATELET COUNT 320 10^3/uL (150-400); RED BLOOD CELL COUNT 4.15 10^6/uL (4.18-5.33); RED CELL DISTRIBUTION WIDTH 15.7 % (11.5-15.2)
[2017-04-17 06:21] LABS: CALCIUM 8.7 mg/dL (8.5-10.4); CARBON DIOXIDE 26 mEq/l (22-31); CHLORIDE 108 mEq/L (97-110); CREATININE 0.7 mg/dL (0.6-1.0); GLOMERULAR FILTRATION RATE > 60; GLUCOSE 122 mg/dL (70-100); MAGNESIUM 2.1 mg/dL (1.6-2.3); SODIUM 145 mEq/L (134-144)
[2017-04-17 06:56] LABS: ANION GAP 11 mEq/L (8-16); POTASSIUM 4.3 mEq/L (3.5-5.2)
[2017-04-17] MEDS ORDERED: ERTAPENEM 1 GM VIAL IVP SCH ×2 (09:00)
[2017-04-17] MEDS: SENNOSIDES 17.6 MG/10 ML UDL TUBE SCH ×2 (09:23→22:17)
[2017-04-17] MEDS: fentaNYL/NACL 100 ML IV SCH (09:34)
--- NOTE | 2017-04-17 09:39 | ASMTCMCOM ---
CM Note CM Note Notes: Patient's daughter, Maddi asked for a letter to help her father, patient's , come to the [place] to pay his respects and support patient. Letter was prepared and carton forming machine adjuster, Dr Gillespie signed. A copy of the letter is in the medical record. CM will follow for any further d/c needs. Date Signed: 04/17/2017 09:38 AM Electronically Signed By:Aggie Amador LCSW
--- NOTE | 2017-04-17 10:01 | NEUSURGPN ---
<TysonLuz Gerardo - Last Filed: 04/17/17 09:57> Assessment/Plan: Assessment/Plan: Assessment: 51 yo female that is admitted to IM with HTN and ICB to brainstem Plan: -Neuro- Stable, no significant changes follows commands on left and BLE, less movement with right but wiggles [id number] 04/15 for resp failure -3rd CT is stable. -MRI brain: overall similar appearance to most recent HCT with more remote focus of parenchymal hemorrhage involving posterior limb of R internal capsule -continue to keep SBP less than 140 -elevate HOB -family met with palliative care, awaiting arrival of family from [place] to make decisions on care -DVT: TEDs, SCDs, ok to start prophylactic lovenox today 04/17 -call with any questions or concerns -Discussed with Dr. Knight Subjective: unable to obtain Objective: Awakens easily, opens eyes to voice PERRL - 2mm reactive, does not track with eyes Follows commands with LUE/LLE/RLE Wiggles right fingers Positive Babinski Catheter Insertion Date: 04/08/17 - Physician Discussed Patient with Dr.: Other ([place]) Neurosurgery Physical Exam - Vitals, I&O, Labs I and O 04/16/17 04/17/17 04/18/17 05:59 05:59 05:59 Intake Total 3584 3505 Output Total 3775 4100 Balance -191 -595 Weight 95 kg 94.5 kg Intake: IV Intake (ml) 935 60 IV Infused (ml) 1575 577 POTASSIUM Cl (KCl) 10 meq 200 In Ns 50 ml @ 100 mls/hr IV Q30M VIANEY Rx#: [id number] Piperacillin/Tazo 3.375 50 50 gm/Dex 50 ml @ 100 mls/hr IV Q6HRS VIANEY Rx#: [id number] Propofol/Emulsion 100 ml 41 @ Per Protocol IV CONT VIANEY Rx#:[id number] Propofol/Emulsion 100 ml 27 @ Titrate IV CONT VIANEY Rx# :[id number] Vancomycin 1.25 gm In D5w 250 250 250 ml @ 166.67 mls/hr IV Q12H VIANEY Rx#: [id number] fentaNYL/NACL 100 ml @ 27 Per Protocol IV CONT VIANEY Rx#:[id number] fentaNYL/NACL 100 ml @ 36 Per Protocol IV CONT VIANEY Rx#:[id number] niCARdipine/NACL 200 ml @ 1221 Titrate IV CONT VIANEY Rx#: [id number] Tube Feeding (ml) 774 2066 Tube Flush (ml) 300 802 Output: Urine (ml) 3775 4100 Catheter 3775 4100 Microbiology 04/14/17 22:50 Gram Stain - Final Lung Bilateral - Bronchial Washings 04/15/17 16:00 - Final Sputum, Induced/Suctioned Vital Signs Temp Pulse Resp BP Pulse Ox 38.2 C 78 13 100/48 L 97 04/17/17 09:00 04/17/17 09:00 04/17/17 09:00 04/17/17 09:00 04/17/17 09:00 Laboratory Results 04/17/17 05:45 04/17/17 05:45 ICD10 Worksheet Patient Problems: Problems Problem Status Onset Acute cerebral hemorrhage Acute Palliative care encounter Acute <Fercho Knight - Last Filed: 04/18/17 12:44> Assessment/Plan: STAFF ADDENDUM: I have personally seen and examined the patient on 04/17/2017. I agree with all documentation by Luz Medina PA-C. Patient is orally intubated, but awake. She follows commands with all 4 extremities, but is noticeably weaker on the right side. Continue current management in ICU. I spoke briefly to patient's friend at the bedside, but no other family was present to update. Fercho Knight M.D. - Physician Patient Seen by Dr.: Other (Dr. Knight) Neurosurgery Physical Exam - Vitals, I&O, Labs I and O 04/17/17 04/18/17 04/19/17 05:59 05:59 05:59 Intake Total 3505 2273.1 Output Total 4100 3100 400 Balance -595 -826.9 -400 Weight 94.5 kg Intake: IV Intake (ml) 60 262 IV Infused (ml) 577 104.1 POTASSIUM Cl (KCl) 10 meq 200 In Ns 50 ml @ 100 mls/hr IV Q30M VIANEY Rx#: [id number] Piperacillin/Tazo 3.375 50 gm/Dex 50 ml @ 100 mls/hr IV Q6HRS VIANEY Rx#: [id number] Propofol/Emulsion 100 ml 41 68.7 @ Per Protocol IV CONT VIANEY Rx#:[id number] Vancomycin 1.25 gm In D5w 250 250 ml @ 166.67 mls/hr IV Q12H VIANEY Rx#: [id number] fentaNYL/NACL 100 ml @ 36 35.4 Per Protocol IV CONT [facility] Rx#:[id number] Tube Feeding (ml) 2066 1406 Tube Flush (ml) 802 501 Output: Urine (ml) 4100 3100 400 Catheter 4100 3100 400 Microbiology 04/15/17 16:00 - Final Sputum, Induced/Suctioned Sputum Culture - Final Staphylococcus Aureus 04/14/17 22:50 Gram Stain - Final Lung Bilateral - Bronchial Washings Bronchial Washings Culture - Final Staphylococcus Aureus Vital Signs Temp Pulse Resp BP Pulse Ox 38.1 C 80 16 156/86 H 96 04/18/17 10:00 04/18/17 10:42 04/18/17 10:00 04/18/17 10:42 04/18/17 10:00 Laboratory Results 04/17/17 05:45 04/18/17 06:40
[2017-04-17] MEDS: ENOXAPARIN 40 MG/0.4 ML SYR SC SCH (11:02)
--- NOTE | 2017-04-17 11:48 | PDINTPN ---
Director Of National Sales Progress Note Assessment/Plan: Assessment: Pontine CVA: Neuro status unchanged. Prognosis for meaningful recovery remains poor Pneumonia. Left lower lobe, possibly right as well. Cultures negative to date. Her Dipentum discontinued per recommendations of Infectious Disease. Will continue with unasyn. Respiratory failure: Intubated 04/15. Stable on the ventilator. On 40% FiO2. Minimal pulmonary secretions, still with nasal secretions/drainage. HTN: Blood pressure significantly lower since intubation. Off nicardipine drip , on metoprolol, amlodipine, clonidine patch, and Lasix. Anemia: Mild. Hgb he slightly down today at 32.7. Hypernatremia: Sodium improved, 145. Nutrition: On tube feedings DVT prophylaxis: SCDs. Anticoagulation contraindicated secondary to intracerebral hemorrhage Plan: Please see the problem specific plans above. Continue ventilatory support for now. Switch to Unasyn today. Will decrease Lasix to Q 12. May need to cut back or discontinue other anti hypertensives if blood pressure decreases further. Continue TF H2O flushes for hypernatremia. Follow sodium daily. Continue following Is and Os closely aiming for stable fluid balance. Follow lab, CXR, ABG as needed. Neurologic prognosis is extremely poor for meaningful recovery. As discussed in the palliative care conference, we are providing ventilatory assistance until other family members can get here, possibly tomorrow, including the patient's mother. At that point we will likely transition to comfort care and extubate. 30 min of critical care time spent directly with the patient. Discussed with the patient's son dtr, nursing, RT, hospitalist, and ICU multi disciplinary team. Subjective: Sedated, on the ventilator, appears comfortable. Eyes open at times, does not track Objective: Vital Signs Temp Pulse Resp BP Pulse Ox 38.3 C 72 24 H 96/50 L 98 04/17/17 11:00 04/17/17 11:00 04/17/17 11:00 04/17/17 11:00 04/17/17 11:00 Microbiology 04/14/17 22:50 Gram Stain - Final Lung Bilateral - Bronchial Washings 04/15/17 16:00 - Final Sputum, Induced/Suctioned Laboratory Results 04/17/17 05:45 04/17/17 05:45 04/16/17 04/17/17 04/18/17 05:59 05:59 05:59 Intake Total 3584 3502 Output Total 3384 5945 Balance -191 -595 PT 12.6 SEC (12.0-15.0) 04/08/17 16:58 INR 0.92 (0.83-1.16) 04/08/17 16:58 Laboratory Tests 04/17/17 04/17/17 04:20 05:45 pCO2 35 pO2 78 H ABG pH 7.46 H O2 Concentration % 40 Actual Respiration Rate 20 Set Respiration Rate 16 SIMV YES Calcium 8.7 Magnesium 2.1 Physical Exam - Physical Exam General Appearance: no apparent distress, obese, other (On ventilator), No alert EENT: ET tube, other (NG) Neck: normal inspection Respiratory: lungs clear, decreased breath sounds (At bases), rales (Rales bilaterally, at bases, left greater than right) Cardiac/Chest: regular rate, rhythm (Distant heart tones) Abdomen: normal bowel sounds (Tolerating tube feeding), non-tender, soft Pelvic Exam: other (Pino catheter in place) Extremities: pedal edema (Trace) Neuro/Psych: cognition abnormalities (No changes in neurologic status), No no motor/sensory deficits ICD10 Worksheet Patient Problems: Problems Problem Status Onset Acute cerebral hemorrhage Acute Palliative care encounter Acute
[2017-04-17] MEDS: AMPICILLIN/SULBACTAM 1.5 GM in NS 50 ML IV SCH ×2 (12:32→18:43)
[2017-04-17 13:10] LABS: POTASSIUM 4.1 mEq/L (3.5-5.2)
--- NOTE | 2017-04-17 15:17 | HOSPPROG ---
Hospitalist Progress Note Assessment/Plan: 51 yo female with untreated HTN admitted for intracranial hemorrhage. # Intracranial Brainstem Hemorrhage -Not a surgical candidate--No progression per latest CT MRI brain (personally reviewed and interpreted) stable large intracranial hemorrhage -NSG following -weaned off nicardipine with sedation for vent - cont careful BP control- working to transition to meds per tube # Acute hypoxic respiratory failure- re-intubated 04/15- suspect multifactorial - OHS/JANE and pneumonia- 96% on 40% Fio2 CXR (personally reviewed and interpreted) right lower lobe infiltrate- sputum cx with MSSA and BCX NGTD overall respiratory status seemed worse yesterday - pt intubated to support and provide time for family to travel here - cont ventilator support - change antibiotic to Unasyn as MSSA in sputum - cont IV lasix Q8 # Fevers - suspect central - - remain persistent - cont Abx # Volume overload -continue Lasix IV as ordered # Hypernatremia - sodium 150-> 145 with increased free water - increase free water with TF's # Dysphagia- cont Tube feeds # Leukocytosis- 2/2 pneumonia - sputum cultures and BCx NGTD - WBC 10 today -cont unasyn # HTN- SBP - steadily decreasing since intubated - SBP in 90's - dc amlodipine and clonidine - change metoprolol to per tube low dose # Abnormal EKG (Slight ST elevation in Anterior Leads) and elevated troponin - TTE c/w global hypercontractility. No wall abnormalities. LVEF 72% -Cards evaluated patient yesterday, cannot r/o ACS, but given her current state, she is not a candidate for intervention, AC, or antiplatelet therapy # FEN - cont TF's with free fluid # proph - cont SCD's # dispo - Palliative care consulted today and recommendations for comfort care made from the medical team - working with Case management to get Mother from [facility] to see before withdrawing care.- pt made DNR I have discussed the case with Dr. Gillespie - will down titrate BP regimen Subjective: tolerating vent Objective: Vital Signs Temp Pulse Resp BP Pulse Ox 38.3 C 80 24 H 97/46 L 96 04/17/17 14:00 04/17/17 14:00 04/17/17 14:00 04/17/17 14:00 04/17/17 14:00 Microbiology 04/15/17 16:00 - Final Sputum, Induced/Suctioned 04/14/17 22:50 Gram Stain - Final Lung Bilateral - Bronchial Washings Laboratory Results 04/17/17 05:45 04/17/17 12:38 04/16/17 04/17/17 04/18/17 05:59 05:59 05:59 Intake Total 3584 3505 Output Total 3775 4100 Balance -191 -595 PT 12.6 SEC (12.0-15.0) 04/08/17 16:58 INR 0.92 (0.83-1.16) 04/08/17 16:58 - Physical Exam Constitutional: no apparent distress Eyes: anicteric sclera Ears, Nose, Mouth, Throat: dry mucous membranes Cardiovascular: regular rate and rhythym Respiratory: no respiratory distress, inspiratory crackles Gastrointestinal: normoactive bowel sounds Genitourinary: no bladder fullness Skin: warm Musculoskeletal: No asymmetric calves Neurologic: No AAOx3 Psychiatric: No agitated Lymph, Heme, Immunologic: no cervical LAD ICD10 Worksheet Patient Problems: Problems Problem Status Onset Acute cerebral hemorrhage Acute Palliative care encounter Acute
[2017-04-17 17:41] LABS: POTASSIUM 4.1 mEq/L (3.5-5.2)
[2017-04-17] MEDS: PROPOFOL/EMULSION 100 ML IV SCH (22:16)
[2017-04-18] MEDS: AMPICILLIN/SULBACTAM 1.5 GM in NS 50 ML IV SCH ×4 (00:16→17:43)
[2017-04-18] MEDS: ACETAMINOPHEN 650 MG/20.3 ML UDCUP TUBE PRN ×2 (00:16→21:12)
[2017-04-18 03:05] LABS: POTASSIUM 4.2 mEq/L (3.5-5.2)
[2017-04-18] MEDS: INSULIN REGULAR, HUMAN 100 UNIT/1 ML VIAL STANDARD SC SCH ×4 (03:47→18:48)
[2017-04-18] MEDS: ALBUTEROL 200 PUFFS/18 GM MDI IH SCH ×6 (04:33→23:18)
[2017-04-18 07:21] LABS: POTASSIUM 4.2 mEq/L (3.5-5.2)
--- NOTE | 2017-04-18 07:50 | SOAPPROG ---
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 Plan: neuro: stable awaiting family to arrive from [place] and then likely moving towards comfort care continue BP control HOB up 30 degress scd/lindsey/lovenox for dvt prophylaxis reintubated 04/15 for respiratory failure please call with neuro changes discussed with Dr Knight 04/18/17 07:47 04/18/17 07:49 04/18/17 07:51 Subjective: chart reviewed Objective: Vital Signs Temp Pulse Resp BP Pulse Ox 38.3 C 73 21 H 128/70 H 96 04/18/17 06:00 04/18/17 06:00 04/18/17 06:00 04/18/17 06:00 04/18/17 06:00 Microbiology 04/15/17 16:00 - Final Sputum, Induced/Suctioned 04/14/17 22:50 Gram Stain - Final Lung Bilateral - Bronchial Washings Bronchial Washings Culture - Final Staphylococcus Aureus Laboratory Results 04/17/17 05:45 04/18/17 06:40 04/17/17 04/18/17 04/19/17 05:59 05:59 05:59 Intake Total 3505 2273.1 Output Total 4100 3100 Balance -595 -826.9 PT 12.6 SEC (12.0-15.0) 04/08/17 16:58 INR 0.92 (0.83-1.16) 04/08/17 16:58 opens eyes to voice Pupils: 4 mm our reactive follows commands to left sided moves right side but weaker ICD10 Worksheet Patient Problems: Problems Problem Status Onset Acute cerebral hemorrhage Acute Palliative care encounter Acute
[2017-04-18] MEDS: METOPROLOL TARTRATE 25 MG TAB TUBE SCH ×2 (10:42→21:09)
[2017-04-18] MEDS: FUROSEMIDE 20 MG/2 ML VIAL IVP SCH ×2 (10:42→21:09)
[2017-04-18] MEDS: ENOXAPARIN 40 MG/0.4 ML SYR SC SCH (10:42)
[2017-04-18] MEDS: SENNOSIDES 17.6 MG/10 ML UDL TUBE SCH (10:43)
--- NOTE | 2017-04-18 11:25 | PDINTPN ---
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 However prognosis for returning home, independent function, etc is very poor. Pneumonia. Left lower lobe, possibly right as well. Cultures negative to date. MSSA in sputum, presumably aspirated: continue unasyn. Respiratory failure: Intubated 04/15. Stable on the ventilator. On 40% FiO2. Minimal pulmonary secretions. Nasal secretions are less. HTN: Blood pressure significantly lower since intubation. Off nicardipine drip , on low-dose metoprolol by tube and Lasix. Anemia: Mild. Hgb slightly down at 32.7. Follow intermittently. Hypernatremia: Improved. Nutrition: On tube feedings DVT prophylaxis: SCDs. Anticoagulation contraindicated secondary to intracerebral hemorrhage. Disposition: Issues may be difficult going forward. She may be improving neurologically enough to survive this event, come off the ventilator and be medically stable. The family may not want to proceed with comfort care. However is unlikely that she will regain significant neurologic capabilities to return home. She is undocumented from [place], has no insurance, will not have access to long-term nursing care, etc. Family would have to except care for her. We may not be able to decide much until after she is extubated. Plan: Continue supportive care. Continue ventilatory support for now. Continue Unasyn, Lasix Q 12. Continue TF H2O flushes. Follow sodium intermittently. Continue following Is and Os. Follow lab, CXR, ABG as needed. Neurologic prognosis remains poor. As discussed in the palliative care conference, we are providing ventilatory assistance until other family members can get here, possibly Friday or Friday now, including the patient's mother. At that point we would consider options, likely extubate, plan possibly to not reintubate comma Re discuss comfort care verses ongoing supportive care at some level. 40 min of critical care time spent directly with the patient. Discussed with the patient's son dtr, nursing, RT, hospitalist, and ICU multi disciplinary team. Subjective: Lightly sedated, eyes open, appears to track today. Moving left side appropriately, not right. Objective: Vital Signs Temp Pulse Resp BP Pulse Ox 38.1 C 80 16 156/86 H 96 04/18/17 10:00 04/18/17 10:42 04/18/17 10:00 04/18/17 10:42 04/18/17 10:00 Microbiology 04/15/17 16:00 - Final Sputum, Induced/Suctioned Sputum Culture - Final Staphylococcus Aureus 04/14/17 22:50 Gram Stain - Final Lung Bilateral - Bronchial Washings Bronchial Washings Culture - Final Staphylococcus Aureus Laboratory Results 04/17/17 05:45 04/18/17 06:40 04/17/17 04/18/17 04/19/17 05:59 05:59 05:59 Intake Total 3505 2273.1 Output Total 4100 3100 400 Balance -595 -826.9 -400 PT 12.6 SEC (12.0-15.0) 04/08/17 16:58 INR 0.92 (0.83-1.16) 04/08/17 16:58 Physical Exam - Physical Exam General Appearance: no apparent distress, obese, other EENT: purulent nasal drainage (Significantly decreased), ET tube, other (NG tube ) Neck: normal inspection (Large neck) Respiratory: lungs clear (Anteriorly), decreased breath sounds (At bases), rales (Few at lateral bases), stridor (Eyes open, possibly tracks), No rhonchi, No wheezing Cardiac/Chest: regular rate, rhythm Abdomen: normal bowel sounds, non-tender, soft (Obese), other (Tolerating tube feeding) Pelvic Exam: other (Pino catheter in place, good urine output) Skin: normal color, warm/dry Extremities: pedal edema (Trace) Neuro/Psych: cognition abnormalities (Improving? Difficult to evaluate on the ventilator with sedation), No no motor/sensory deficits (Right-sided deficits) ICD10 Worksheet Patient Problems: Problems Problem Status Onset Acute cerebral hemorrhage Acute Palliative care encounter Acute
--- NOTE | 2017-04-18 17:07 | HOSPPROG ---
Hospitalist Progress Note Assessment/Plan: * Brainstem hemorrhagic stroke - liz -poor prognosis -blood pressure control (pre-existing untreated essential HTN) * Recurrent respiratory failure - re-intubated -poor airway protection due to stroke * Aspiration Pneumonia -IV Unasyn * Volume overload -IV lasix * Hypernatremia -increased free water with tube feeds * Dysphagia - tube feeds * HTN -controlled on metoprolol * EKG changes with troponin elevation -possible ACS - but not candidate for intervention at this time * Fevers - ? central -recheck BC * Morbid obesity BMI 40 Subjective: a little more responsive Objective: Vital Signs Temp Pulse Resp BP Pulse Ox 38.6 C H 90 15 125/67 H 100 04/18/17 16:00 04/18/17 16:00 04/18/17 16:00 04/18/17 16:00 04/18/17 16:00 Microbiology 04/15/17 16:00 - Final Sputum, Induced/Suctioned Sputum Culture - Final Staphylococcus Aureus 04/14/17 22:50 Gram Stain - Final Lung Bilateral - Bronchial Washings Bronchial Washings Culture - Final Staphylococcus Aureus Laboratory Results 04/17/17 05:45 04/18/17 06:40 04/17/17 04/18/17 04/19/17 05:59 05:59 05:59 Intake Total 3505 2273.1 Output Total 4100 3100 400 Balance -595 -826.9 -400 PT 12.6 SEC (12.0-15.0) 04/08/17 16:58 INR 0.92 (0.83-1.16) 04/08/17 16:58 d/w Dr. Gillespie - await family arrival from [place] to institute comfort measures CXR - atelectasis - Physical Exam Constitutional: no apparent distress, appears nourished, not in pain Cardiovascular: regular rate and rhythym, no murmur, rub, or gallop Respiratory: no respiratory distress, no rales or rhonchi, clear to auscultation Gastrointestinal: normoactive bowel sounds, soft, non-tender abdomen, no palpable masses Skin: no rashes or abrasions, no fluctuance, no induration Neurologic: No AAOx3 Psychiatric: encephalopathic, poor insight, poor judgement, poor memory, No interacting appropriately ICD10 Worksheet Patient Problems: Problems Problem Status Onset Acute cerebral hemorrhage Acute Palliative care encounter Acute
[2017-04-18 18:53] LABS: POTASSIUM 4.3 mEq/L (3.5-5.2)
[2017-04-18] MEDS: PROPOFOL/EMULSION 100 ML IV SCH (21:00)
[2017-04-19] MEDS: SENNOSIDES 17.6 MG/10 ML UDL TUBE SCH ×3 (00:13→21:01)
[2017-04-19] MEDS: INSULIN REGULAR, HUMAN 100 UNIT/1 ML VIAL STANDARD SC SCH ×3 (00:15→18:11)
[2017-04-19] MEDS: AMPICILLIN/SULBACTAM 1.5 GM in NS 50 ML IV SCH ×5 (00:15→23:44)
[2017-04-19 04:26] LABS: ADD DIFF? YES; ADD MORPH? NO; FRAGMENT RBC FLAG 0 (0-99); HEMATOCRIT 34.6 % (38.0-47.0); HEMOGLOBIN 10.7 g/dL (12.6-16.3); LEFT SHIFT FLG 40 (0-99); LIPEMIA HEMOLYSIS FLAG 80 (0-99); MEAN CELL HEMOGLOBIN 24.3 pg (27.9-34.1); MEAN CELL HEMOGLOBIN CONCENTR. 30.9 g/dL (32.4-36.7); MEAN CELL VOLUME 78.5 fL (81.5-99.8); MEAN PLATELET VOLUME 9.3 fL (8.7-11.7); PLATELET CLUMPS FLAG 10 (0-99); PLATELET COUNT 364 10^3/uL (150-400); RED BLOOD CELL COUNT 4.41 10^6/uL (4.18-5.33); RED CELL DISTRIBUTION WIDTH 15.8 % (11.5-15.2)
[2017-04-19] MEDS: ALBUTEROL 200 PUFFS/18 GM MDI IH SCH ×5 (04:30→19:39)
[2017-04-19 04:39] LABS: ADD SCAN? NO; ANION GAP 11 mEq/L (8-16); ATYPICAL LYMPHOCYTE FLAG 130 (0-99); CALCIUM 8.7 mg/dL (8.5-10.4); CARBON DIOXIDE 29 mEq/l (22-31); CHLORIDE 107 mEq/L (97-110); CREATININE 0.7 mg/dL (0.6-1.0); GLOMERULAR FILTRATION RATE > 60; GLUCOSE 137 mg/dL (70-100); POTASSIUM 4.4 mEq/L (3.5-5.2); SODIUM 147 mEq/L (134-144)
[2017-04-19 05:06] LABS: HYPOCHROMIA 1+; PLATELET ESTIMATE ADEQUATE (ADEQ); POLYCHROMASIA 1+
[2017-04-19] MEDS: ENOXAPARIN 40 MG/0.4 ML SYR SC SCH (08:08)
[2017-04-19] MEDS: FUROSEMIDE 20 MG/2 ML VIAL IVP SCH ×2 (08:08→21:01)
[2017-04-19] MEDS: METOPROLOL TARTRATE 25 MG TAB TUBE SCH ×2 (08:08→21:01)
--- NOTE | 2017-04-19 11:05 | NEUSURGPN ---
Assessment/Plan: Assessment: 51 yo female that is admitted to IM with HTN and ICB to brainstem Plan: -Awaiting family to arrive from [place] and then likely moving towards comfort care -continue BP control -HOB up 30 degress -scd/lindsey/lovenox for dvt prophylaxis -reintubated 04/15 for respiratory failure -please call with neuro changes -Discussed patient with Dr Knight Subjective: Patient intubated, opens eyes to voice, no changes last night per RN Objective: opens eyes to voice Pupils: 4 mm our reactive follows commands to left sided moves right side but weaker Neuro Check Frequency: per routine Urinary Catheter in Place: Yes Urinary Catheter Indication: Accurate I & O Required, Other (Use Comment) ( intubated) Catheter Insertion Date: 04/08/17 - Physician Discussed Patient with Dr.: Other (Dr Knight) Neurosurgery Physical Exam - Vitals, I&O, Labs I and O 04/18/17 04/19/17 04/20/17 05:59 05:59 05:59 Intake Total 2273.1 2504 Output Total 3100 3350 Balance -826.9 -846 Weight 94.5 kg Intake: IV Intake (ml) 262 357 IV Infused (ml) 104.1 167 Propofol/Emulsion 100 ml 68.7 120 @ Per Protocol IV CONT VIANEY Rx#:[id number] fentaNYL/NACL 100 ml @ 35.4 47 Per Protocol IV CONT VIANEY Rx#:[id number] Tube Feeding (ml) 1406 1480 Tube Flush (ml) 501 500 Output: Urine (ml) 3100 3350 Catheter 3100 3350 Microbiology 04/13/17 22:35 Blood Culture - Final Blood 04/13/17 22:35 Blood Culture - Final Blood 04/15/17 16:00 - Final Sputum, Induced/Suctioned Sputum Culture - Final Staphylococcus Aureus Vital Signs Temp Pulse Resp BP Pulse Ox 38.8 C H 82 16 145/72 H 100 04/19/17 00:00 04/19/17 08:08 04/19/17 05:45 04/19/17 08:08 04/19/17 05:45 Laboratory Results 04/19/17 04:12 04/19/17 04:12 ICD10 Worksheet Patient Problems: Problems Problem Status Onset Acute cerebral hemorrhage Acute Palliative care encounter Acute
--- NOTE | 2017-04-19 13:12 | PDINTPN ---
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 However prognosis for independent function remains poor. Neurology to re-evaluate tomorrow. Pneumonia. Left lower lobe, possibly right as well. Cultures negative to date. MSSA in sputum, presumably aspirated: on unasyn. Respiratory failure: Intubated 04/15. Stable on the ventilator. On 40% FiO2. Minimal pulmonary secretions. Nasal secretions persist. HTN: Blood pressure significantly lower since intubation. Off nicardipine drip , on low-dose metoprolol by tube and Lasix bid. Anemia: Mild. Stable at 34. Follow intermittently. Hypernatremia: Improved. 147... On free water flushes Nutrition: On tube feedings DVT prophylaxis: SCDs, enoxaparin. Disposition: Issues may be difficult going forward. She Is improving neurologically enough to possibly survive this event, come off the ventilator and be medically stable. The family may not want to proceed with comfort care. However is unlikely that she will regain significant neurologic capabilities to return to independent function. She is undocumented from [place], has no insurance, will may have access to long-term nursing care here. Family would have to except care for her. We may not be able to decide much until after she is extubated. Plan: Continue supportive care. Continue ventilatory support for now. Advance CPAP weans. Continue Unasyn, Lasix Q 12. Continue TF H2O flushes. Follow sodium intermittently. Continue following Is and Os. Follow lab, CXR, ABG as needed. For sedation vacation tomorrow in a.m. with Neurology re-eval later in the day. With we will need another family/palliative care conference Friday. At that point we would consider options, likely extubate, plan possibly to not reintubate, and re-discuss comfort care verses ongoing supportive care. 40 min of critical care time spent directly with the patient. Discussed with the patient's dtr, nursing, Neuro, hospitalist, and ICU multi disciplinary team. Subjective: Lightly sedated, arousable. On the ventilator. Looks to voice, tracks. Responds to simple commands. Objective: Vital Signs Temp Pulse Resp BP Pulse Ox 38.8 C H 82 16 145/72 H 100 04/19/17 00:00 04/19/17 08:08 04/19/17 05:45 04/19/17 08:08 04/19/17 05:45 Microbiology 04/13/17 22:35 Blood Culture - Final Blood 04/13/17 22:35 Blood Culture - Final Blood 04/15/17 16:00 - Final Sputum, Induced/Suctioned Sputum Culture - Final Staphylococcus Aureus Laboratory Results 04/19/17 04:12 04/19/17 04:12 04/18/17 04/19/17 04/20/17 05:59 05:59 05:59 Intake Total 2273.1 2504 Output Total 3100 3350 Balance -826.9 -846 PT 12.6 SEC (12.0-15.0) 04/08/17 16:58 INR 0.92 (0.83-1.16) 04/08/17 16:58 Physical Exam - Physical Exam General Appearance: no apparent distress, obese, other (On ventilator) EENT: PERRL/EOMI, ET tube, other (NG in place. Nasal drainage persists, some oral secretions, drooling.) Neck: normal inspection (Large neck no obvious JVD) Respiratory: lungs clear (Anteriorly), decreased breath sounds (At bases), No rales, No rhonchi Cardiac/Chest: regular rate, rhythm Abdomen: normal bowel sounds, non-tender, soft, other (Tolerating tube feeding) Pelvic Exam: other (Pino catheter in place, good urine output) Skin: normal color, warm/dry Extremities: pedal edema (Trace) Neuro/Psych: No no motor/sensory deficits (Right-sided deficits persist), No cognition abnormalities (Difficult to assess, but cognition appears intact.) ICD10 Worksheet Patient Problems: Problems Problem Status Onset Acute cerebral hemorrhage Acute Palliative care encounter Acute
[2017-04-19] MEDS: PROPOFOL/EMULSION 100 ML IV SCH (14:21)
[2017-04-19] MEDS: fentaNYL/NACL 100 ML IV SCH (14:21)
--- NOTE | 2017-04-19 17:29 | HOSPPROG ---
Hospitalist Progress Note Assessment/Plan: * Brainstem hemorrhagic stroke - liz -prognosis unclear - neuro exam improving - will ask neuro to assist -blood pressure control (pre-existing untreated essential HTN) * Recurrent respiratory failure - re-intubated -poor airway protection due to stroke? * Aspiration Pneumonia -IV Unasyn * Volume overload -IV lasix * Hypernatremia -increased free water with tube feeds * Dysphagia - tube feeds * HTN -controlled on metoprolol * EKG changes with troponin elevation -possible ACS - but not candidate for intervention at this time * Fevers - ? central -recheck BC if recur * Morbid obesity BMI 40 Subjective: Awake and tracts with eyes. Follows commands conisistently Objective: Vital Signs Temp Pulse Resp BP Pulse Ox 37.6 C 85 16 134/79 H 98 04/19/17 14:00 04/19/17 14:00 04/19/17 14:00 04/19/17 14:00 04/19/17 14:00 Microbiology 04/13/17 22:35 Blood Culture - Final Blood 04/13/17 22:35 Blood Culture - Final Blood Laboratory Results 04/19/17 04:12 04/19/17 04:12 04/18/17 04/19/17 04/20/17 05:59 05:59 05:59 Intake Total 2273.1 2504 Output Total 3100 3350 Balance -826.9 -846 PT 12.6 SEC (12.0-15.0) 04/08/17 16:58 INR 0.92 (0.83-1.16) 04/08/17 16:58 d/w Dr. Gillespie - family unable to get visas to visit from [place] - NSR - Physical Exam Constitutional: no apparent distress, appears nourished, not in pain Cardiovascular: regular rate and rhythym, no murmur, rub, or gallop Respiratory: no respiratory distress, no rales or rhonchi, clear to auscultation Gastrointestinal: normoactive bowel sounds, soft, non-tender abdomen, no palpable masses Skin: no rashes or abrasions, no fluctuance, no induration Neurologic: weakness (RUE), No AAOx3, No facial droop Psychiatric: interacting appropriately, No encephalopathic, No anxious, No agitated ICD10 Worksheet Patient Problems: Problems Problem Status Onset Acute cerebral hemorrhage Acute Palliative care encounter Acute
[2017-04-19] MEDS: ACETAMINOPHEN 650 MG/20.3 ML UDCUP TUBE PRN (18:45)
[2017-04-20] MEDS: ALBUTEROL 200 PUFFS/18 GM MDI IH SCH ×7 (00:04→23:47)
[2017-04-20] MEDS: INSULIN REGULAR, HUMAN 100 UNIT/1 ML VIAL STANDARD SC SCH ×5 (03:05→23:57)
[2017-04-20 04:44] LABS: BASE EXCESS 3.2 mEq/L (-2.5-2.5); BICARBONATE 26 mEq/L (22-26); MEASURED OXYGEN SATURATION 95 % (92-95); PCO2 37 mmHg (34-38); PO2 78 mmHg (65-75); TCO2 28 mEq/L (23-27)
[2017-04-20 04:45] LABS: CPAP YES; END TIDAL CO2 48; O2 CONCENTRATIION 40 % (0-100); P/F RATIO 195 RATIO; PATIENT RATE 38
[2017-04-20 04:46] LABS: PRESSURE SUPPORT 7
[2017-04-20] MEDS: AMPICILLIN/SULBACTAM 1.5 GM in NS 50 ML IV SCH ×4 (05:28→23:55)
[2017-04-20] MEDS: ACETAMINOPHEN 650 MG/20.3 ML UDCUP TUBE PRN ×2 (05:32→17:26)
--- NOTE | 2017-04-20 08:14 | NEUSURGPN ---
Assessment/Plan: Assessment: 51 yo female that is admitted to IM with HTN and ICB to brainstem Plan: -Plan for palliative care meeting tomorrow, son is POA and present at bedside -continue BP control -HOB up 30 degress -scd/lindsey/lovenox for dvt prophylaxis -reintubated 04/15 for respiratory failure -please call with neuro changes -Discussed patient with Dr Knight Subjective: Unable to obtain, patient intubated, no new events per RN Objective: opens eyes to voice Pupils: 4 mm our reactive follows commands to left sided moves right side but weaker Neuro Check Frequency: per routine Urinary Catheter in Place: Yes Urinary Catheter Indication: Accurate I & O Required Catheter Insertion Date: 04/08/17 - Physician Discussed Patient with Dr.: Other (Dr Knight) Neurosurgery Physical Exam - Vitals, I&O, Labs I and O 04/19/17 04/20/17 04/21/17 05:59 05:59 05:59 Intake Total 2504 2712 Output Total 3350 1400 1000 Balance -846 1312 -1000 Weight 91.1 kg Intake: IV Intake (ml) 357 325 IV Infused (ml) 167 200 Propofol/Emulsion 100 ml 120 119 @ Per Protocol IV CONT VIANEY Rx#:[id number] fentaNYL/NACL 100 ml @ 47 81 Per Protocol IV CONT VIANEY Rx#:[id number] Tube Feeding (ml) 1480 1587 Tube Flush (ml) 500 600 Output: Urine (ml) 3350 1400 1000 Catheter 3350 1400 1000 Microbiology 04/13/17 22:35 Blood Culture - Final Blood 04/13/17 22:35 Blood Culture - Final Blood Vital Signs Temp Pulse Resp BP Pulse Ox 39 C H 94 16 147/79 H 97 04/20/17 06:00 04/20/17 04:00 04/20/17 06:00 04/20/17 06:00 04/20/17 06:00 Laboratory Results 04/19/17 04:12 04/19/17 04:12 ICD10 Worksheet Patient Problems: Problems Problem Status Onset Acute cerebral hemorrhage Acute Palliative care encounter Acute
[2017-04-20] MEDS: SENNOSIDES 17.6 MG/10 ML UDL TUBE SCH ×2 (08:48→21:25)
[2017-04-20] MEDS: FUROSEMIDE 20 MG/2 ML VIAL IVP SCH (08:48)
[2017-04-20] MEDS: METOPROLOL TARTRATE 25 MG TAB TUBE SCH (08:48)
[2017-04-20] MEDS: ENOXAPARIN 40 MG/0.4 ML SYR SC SCH (08:49)
--- NOTE | 2017-04-20 11:09 | WOCRNPDOC ---
WOCRN Advanced Assessment Note - Skin Integrity Problem, Advanced Assess Nose Pressure Injury Dressing Type: Mepilex, Other Other Dressing Type: Tape Dressing Description: Clean/Dry Exudate Amount: None Integumentary Issue Intervention: Visualized Under Dressing Anna Wound Tissue: Erythema Wound Bed Color: Brown Wound Bed Constitution: Scab Wound Edges: Well Defined Site Measurement - Head-to-Toe Length X Width X Depth (cm): [id number] Pressure Injury Stage: Unstageable Skin Integrity Problem Comment: Carefully peeled back dressing, being catious not to disturb patient's feeding tube. Dressing not well adhered. Patient now with scab to wound bed, indicating that the wound has been too dry. Unable to visualize wound tissue so this wound remains unstageable. Patient now intubated so the presumed source of injury, the bi-pap mask, has been removed. Changing orders to ensure wound is kept moist and to allow wound to debride. Wound care will round again early next week.
[2017-04-20] MEDS: fentaNYL/NACL 100 ML IV SCH (11:42)
[2017-04-20] MEDS ORDERED: METOPROLOL TARTRATE 5 MG/5 ML INJ IVP ONE (12:09)
[2017-04-20] MEDS ORDERED: METOPROLOL TARTRATE 25 MG TAB TUBE SCH (12:12)
--- NOTE | 2017-04-20 12:13 | PDINTPN ---
Industrial Safety And Health Technician Progress Note Assessment/Plan: Assessment: Pontine CVA: Neuro status is better, polysomnography technician, following commands. However prognosis for independent function remains poor. Neurology to re-evaluate tomorrow. Pneumonia. Left lower lobe, possibly right as well. Chest x-ray improved. Cultures negative to date. MSSA in sputum, presumably aspirated: on unasyn. Respiratory failure: Intubated 04/15. Tolerating CPAP without problems since last night, comfortable. On 40% FiO2. Minimal pulmonary secretions. Nasal secretions appear to be improving. HTN: Blood pressure significantly lower since intubation, however creeping back up today. Will increase metoprolol to 25 mg twice daily, add low-dose lisinopril. Will decrease Lasix to once per day per tube. Anemia: Mild. Stable at 34. Follow intermittently. Hypernatremia: Improved. Last 147... On free water flushes Nutrition: On tube feedings DVT prophylaxis: SCDs, enoxaparin. Disposition: Issues may be difficult going forward. She has improved neurologically enough to survive this event, come off the ventilator and be medically stable. Comfort care at this point does not need to be indicated. However is unlikely that she will regain significant neurologic capabilities to return to independent function. She is undocumented from [place], has no insurance, and may not have access to long-term nursing care here. Family would have to accept care for her. We may not be able to decide much until after she is extubated. Plan: Continue supportive care. Continue ventilatory support today on CPAP. Continue Unasyn for 7 days total, stop after the . Decrease Lasix, increase metoprolol, start low-dose lisinopril. Continue TF H2O flushes. Follow sodium intermittently. Continue following Is and Os. Follow lab, CXR, ABG as needed. For sedation vacation tomorrow in a.m. with Neurology re-eval later in the day. I had a long talk with the patient's son today, discussing all the issues above. He will let his sister know. For another family/palliative care conference tomorrow. At that point we would consider options, likely extubate, plan possibly to not reintubate, and discuss ongoing supportive care both short term and intermediate teacher. 45 min of critical care time spent directly with the patient. Discussed with the patient's dtr, nursing, Neuro, hospitalist, and ICU multi disciplinary team. Subjective: Eyes open, tracks, below simple commands. Appears comfortable on the ventilator Objective: Vital Signs Temp Pulse Resp BP Pulse Ox 38.3 C 88 28 H 163/80 H 97 04/20/17 12:00 04/20/17 12:00 04/20/17 12:00 04/20/17 12:00 04/20/17 12:00 Microbiology 04/13/17 22:35 Blood Culture - Final Blood 04/13/17 22:35 Blood Culture - Final Blood Laboratory Results 04/19/17 04:12 04/19/17 04:12 04/19/17 04/20/17 04/21/17 05:59 05:59 05:59 Intake Total 2504 2712 Output Total 3350 1400 1000 Balance -846 1312 -1000 PT 12.6 SEC (12.0-15.0) 04/08/17 16:58 INR 0.92 (0.83-1.16) 04/08/17 16:58 Physical Exam - Physical Exam General Appearance: no apparent distress, obese EENT: PERRL/EOMI, ET tube, other (NG. Nasal secretions seem less) Neck: normal inspection (No obvious JVD) Respiratory: lungs clear (Anteriorly), decreased breath sounds (At bases), No rales, No rhonchi Cardiac/Chest: regular rate, rhythm Abdomen: normal bowel sounds, non-tender, soft (Obese), other (Tolerating tube feeding) Pelvic Exam: other (Pino catheter in place, good urine output.) Skin: normal color, warm/dry Extremities: pedal edema (Trace) Neuro/Psych: No no motor/sensory deficits (No changes), No cognition abnormalities (Difficult to assess, appears intact) ICD10 Worksheet Patient Problems: Problems Problem Status Onset Acute cerebral hemorrhage Acute Palliative care encounter Acute
[2017-04-20] MEDS ORDERED: LISINOPRIL 10 MG TAB PO SCH (12:15)
--- NOTE | 2017-04-20 13:07 | NEUROPROG ---
Assessment: I have been asked by Dr. Gillespie to visit with this patient regarding neuro- prognostication. She had previosuly been seen by my partner, Dr. Machuca. She presented to our facility 04/08 with progressive neurologic deficits manifest as right-sided weakness/numbness and nausea/vomting and headache and eventually reduced mental status requiring intubation. CT head wo revealed a sizeable bilateral upper pontine hemorrhage. Hemorrhage is suspected to be hypertensive in origin, and MRI brain wow did not show any underlying mass/ lesion. Patient was extubated but reintubated due to failure to protect her airway. She remains intubated and her light sedation was stopped today for exam purposes. My exam is facilitated by her sister, who aides in Maori language translation. On exam, she is intubated. Her eyes are open. She can follow some simple appendicular commands. She will blink twice for "yes" and once for "no." She has some difficulty tracking me with her eyes and I can't seem to get her to move her eyes other than some mild roving movements. She does blink to threat OU. She grimaces to nox stim of the left face, but not on the right. I cannot assess facial symmetry with her ETT in place. She does cough to deep suction and has a weak gag to ETT manipulation. On sensorimotor exam, her right side is flaccid. She can wiggle the toes on the right very subtly. I can't elicit any movement in the right hand. There is no proximal effort on the right. On the left, she does have some minimal tone. She can raise the LUE off the bed for a brief period of time. She can activate the left hip flexors but cannot raise her leg against gravity. She readily wiggles the toes on the left. She endorses feeling sensation on the left and will move the limbs with nox stim in an effort to withdraw. She does not move to nox stim on the right and does not seem to feel the right. Her plantar responses are mute. No DTRs can be elicited on the right, and only trace DTR in the LUE, none in the LLE. I have reviewed and personally viewed her imaging studies in our EMR. Overall, the bilateral nature of her brainstem hemorrhage portends a poor prognosis for meaningful functional recovery. Her right-side is profoundly effected with no proximal activation, which further portends a poorer prognosis for functional recovery. In addition, he left side has been effected to a much less severe degree. I don't think she is going to have a good chance of walking or being independent. 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 I can't say how her speech will be effected, but her language centers are preserved, so any speech issue would be mechanical/motor. However, her extremity function, particularly on the right, doesn't seem to have a good chance of meaningful recovery at this point. If aggressive measures were to be pursued, she will require [id number] care. Her family is going to discuss if this is something the patient would want to pursue in this condition knowing her chances of meaningful functional recovery are grim. In meantime, continue measures previously outlined by my colleagues in neurology and neurosurgery, particularly BP control. I discussed these finding with Dr. Gillespie. Patient is critically ill with brainstem hemorrhage and severe neurologic damage , with ongoing discussion regarding prognostication and possible cessation of life sustaining/ denying measures. 45 mins CC time in direct patient care activities on the floor. Objective: Vital Signs Temp Pulse Resp BP Pulse Ox 38.3 C 88 28 H 163/80 H 97 04/20/17 12:00 04/20/17 12:00 04/20/17 12:00 04/20/17 12:00 04/20/17 12:00 Microbiology 04/13/17 22:35 Blood Culture - Final Blood 04/13/17 22:35 Blood Culture - Final Blood Laboratory Results 04/19/17 04:12 04/19/17 04:12 04/19/17 04/20/17 04/21/17 05:59 05:59 05:59 Intake Total 2504 2712 Output Total 3350 1400 1000 Balance -846 1312 -1000 PT 12.6 SEC (12.0-15.0) 04/08/17 16:58 INR 0.92 (0.83-1.16) 04/08/17 16:58 Allergies/Adverse Reactions: No Known Allergies Allergy (Verified 04/08/17 17:00)
--- NOTE | 2017-04-20 16:22 | ASMTCMCOM ---
CM Note CM Note Notes: Patient opens eyes, seems to be tracking, follows commands, c-pap trials, tube feeds, BM, wound care for nose. Had a Neuro consult. Plan for extubation in near future. Family will have to decide about PEG tube? Re-intubation in the future if needed? How to care for her in the future? Date Signed: 04/20/2017 04:22 PM Electronically Signed By:Sonja Herrera LCSW
[2017-04-20] MEDS ORDERED: LISINOPRIL 20 MG TAB TUBE SCH (16:45)
--- NOTE | 2017-04-20 16:47 | HOSPPROG ---
Hospitalist Progress Note Assessment/Plan: * Brainstem hemorrhagic stroke -appreciate Dr. 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 no re-intubate -? trach if fails again vs hospice * Aspiration Pneumonia -IV Unasyn * Volume overload -lasix * Hypernatremia -increased free water with tube feeds * Dysphagia - tube feeds -will likely need PEG if continued care * HTN -needs improved control -increase metoprolol, lisinopril * EKG changes with troponin elevation -possible ACS - but not candidate for intervention at this time * Fevers - ? central -recheck BC * Morbid obesity BMI 40 Subjective: Follow commands on vent Objective: Vital Signs Temp Pulse Resp BP Pulse Ox 38.2 C 87 23 H 150/80 H 97 04/20/17 14:00 04/20/17 14:00 04/20/17 14:00 04/20/17 14:00 04/20/17 14:00 Laboratory Results 04/19/17 04:12 04/19/17 04:12 04/19/17 04/20/17 04/21/17 05:59 05:59 05:59 Intake Total 2504 2712 Output Total 3350 1400 1000 Balance -846 1312 -1000 PT 12.6 SEC (12.0-15.0) 04/08/17 16:58 INR 0.92 (0.83-1.16) 04/08/17 16:58 d/w Dr. Gillespie - family meeting in am to clarify goals tele reviewed - NSR - Physical Exam Constitutional: no apparent distress, appears nourished, not in pain Cardiovascular: regular rate and rhythym, no murmur, rub, or gallop Respiratory: no respiratory distress, no rales or rhonchi, clear to auscultation Gastrointestinal: normoactive bowel sounds, soft, non-tender abdomen, no palpable masses Skin: no rashes or abrasions, no fluctuance, no induration Neurologic: weakness (URE), No AAOx3 Psychiatric: interacting appropriately, No encephalopathic, No anxious, No agitated ICD10 Worksheet Patient Problems: Problems Problem Status Onset Acute cerebral hemorrhage Acute Palliative care encounter Acute
[2017-04-20] MEDS: METOPROLOL TARTRATE 50 MG TAB TUBE SCH (21:25)
[2017-04-21] MEDS: ACETAMINOPHEN 650 MG/20.3 ML UDCUP TUBE PRN (00:03)
[2017-04-21] MEDS: ALBUTEROL 200 PUFFS/18 GM MDI IH SCH ×4 (04:02→15:13)
[2017-04-21] MEDS: INSULIN REGULAR, HUMAN 100 UNIT/1 ML VIAL STANDARD SC SCH ×2 (05:45→12:00)
[2017-04-21] MEDS: AMPICILLIN/SULBACTAM 1.5 GM in NS 50 ML IV SCH ×2 (05:59→12:00)
--- NOTE | 2017-04-21 08:06 | SOAPPROG ---
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 Plan: neuro: stable appreciate input from Pulmonology, Medicine and Neurology. palliative care meeting today continue BP control HOB up 30 degress scd/lindsey/lovenox for dvt prophylaxis reintubated 04/15 for respiratory failure please call with neuro changes discussed with Dr Knight 04/18/17 07:47 04/18/17 07:49 04/18/17 07:51 04/21/17 08:03 Subjective: chart reviewed Objective: Vital Signs Temp Pulse Resp BP Pulse Ox 38.2 C 81 31 H 134/70 H 96 04/21/17 06:00 04/21/17 06:00 04/21/17 06:00 04/21/17 06:00 04/21/17 06:00 Laboratory Results 04/19/17 04:12 04/19/17 04:12 04/20/17 04/21/17 04/22/17 05:59 05:59 05:59 Intake Total 2712 2330 Output Total 1400 2510 Balance 1312 -180 PT 12.6 SEC (12.0-15.0) 04/08/17 16:58 INR 0.92 (0.83-1.16) 04/08/17 16:58 intubated opens eyes to voice pupils: 6 mm ou reactive NIKI x 4 to command ICD10 Worksheet Patient Problems: Problems Problem Status Onset Acute cerebral hemorrhage Acute Palliative care encounter Acute
--- NOTE | 2017-04-21 08:35 | PDINTPN ---
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 However prognosis for independent function remains poor. Neurology to re-evaluate tomorrow. * Pneumonia. Left lower lobe, possibly right as well. Chest x-ray improved. Cultures negative to date. MSSA in sputum, presumably aspirated: on unasyn. * Respiratory failure: Intubated 04/15. Currently on CPAP On 40% FiO2. Minimal pulmonary secretions. Nasal secretions appear to be improving. Patient unable to protect own airway -will change back to IMV ventilation * HTN: Blood pressure significantly lower since intubation, however creeping back up today. Will increase metoprolol to 25 mg twice daily, add low-dose lisinopril. Will decrease Lasix to once per day per tube. * Anemia: Mild. Stable at 34. Follow intermittently. * Hypernatremia: Improved. Last 147... On free water flushes * Nutrition: On tube feedings * DVT prophylaxis: SCDs, enoxaparin. * Do not resuscitate * Disposition-will have family meeting later on this morning. Anticipate withdrawal of support, as prognosis is grim for meaningful recovery. Case discussed with respiratory therapy and nursing. 35 min of critical care time spent with patient Subjective: Coma Objective: Vital Signs Temp Pulse Resp BP Pulse Ox 38.2 C 81 31 H 134/70 H 96 04/21/17 06:00 04/21/17 06:00 04/21/17 06:00 04/21/17 06:00 04/21/17 06:00 Laboratory Results 04/19/17 04:12 04/19/17 04:12 04/20/17 04/21/17 04/22/17 05:59 05:59 05:59 Intake Total 2712 2330 Output Total 1400 2510 Balance 1312 -180 PT 12.6 SEC (12.0-15.0) 04/08/17 16:58 INR 0.92 (0.83-1.16) 04/08/17 16:58 Laboratory Results 04/19/17 04:12 04/19/17 04:12 04/20/17 04:40 Patient Temperature 37.0 DEGREES DEGREES pCO2 37 mmHg mmHg (34 - 38) pO2 78 mmHg H mmHg (65 - 75) Total CO2 28 mEq/L H mEq/L (23 - 27) ABG pH 7.47 H (7.35 - 7.45) ABG PO2/FiO2 Ratio 195 RATIO RATIO ABG HCO3 26 mEq/L mEq/L (22 - 26) ABG O2 Saturation 95 % % (92 - 95) ABG Base Excess 3.2 mEq/L H mEq/L (-2.5 - 2.5) O2 Concentration % 40 % % Actual Respiration Rate 38 End Tidal CO2 48 PEEP 5 Pressure Support 7 CPAP YES Physical Exam - Physical Exam General Appearance: No alert EENT: PERRL/EOMI, ET tube Neck: non-tender, supple Respiratory: rhonchi (Few scattered), No normal breath sounds, No respiratory distress, No accessory muscle use Cardiac/Chest: normal peripheral pulses, regular rate, rhythm Peripheral Pulses: 2+: carotid (R), carotid (L), femoral (R), femoral (L), dorsalis-pedis (R), dorsalis-pedis (L) Abdomen: normal bowel sounds, non-tender, soft Pelvic Exam: deferred Rectal: deferred Skin: normal color, warm/dry Extremities: No non-tender Neuro/Psych: No alert ICD10 Worksheet Patient Problems: Problems Problem Status Onset Acute cerebral hemorrhage Acute Palliative care encounter Acute
[2017-04-21] MEDS ORDERED: FUROSEMIDE PO SCH (09:00)
[2017-04-21] MEDS: ENOXAPARIN 40 MG/0.4 ML SYR SC SCH (09:42)
[2017-04-21] MEDS: METOPROLOL TARTRATE 50 MG TAB TUBE SCH (09:42)
[2017-04-21] MEDS: SENNOSIDES 17.6 MG/10 ML UDL TUBE SCH (09:43)
--- NOTE | 2017-04-21 12:52 | PDPCPN ---
Palliative Care Progress Note Assessment/Plan: HPI: Lisbeth Davis is a 51 yo with PMH HTN admitted to the hospital for acute weakness. Found to have acute ICB at the brainstem with no clinical change on most recent MRI. Initially was intubated due to not being able to protect her airway, successfully extubated but with worsening clinical status being treated for possible aspiration PNA. Respiratory status has been worsening with possible PNA now on 100% bipap. Also on multiple medications to address ongoing HTN. Prognosis is poor per ICU team. Palliative care consulted for complex medical decision making. Met with rio Foster, and [address] Menchaca, Katia whiteptiris, RN, and Jonathon outside of the room. Dr Menchaca discussed the current baseline and poor neurological recovery due to her disease state. The family discussed that they were hopeful for some recovery as they see some improvements and felt some other providers thought she should continue with aggressive interventions. We discussed continuing with aggressive medical interventions is not in line with Lisbeth's wishes as previously stated to her family in her current state with her likely poor neurological recovery. They are still deciding which direction to take. Assessment: Physical: - Pain: appears uncomfortable at times - tylenol PRN - morphine PRN - Dyspnea: - on bipap, family would like intubation if needed to allow for time for family to come in and say their goodbyes - morphine as above if needed - weakness - nursing support - turn and reposition - constipation - at risk with opiates, continue bowel regimen Emotional/psychological: Has a lot of support from many family and friends Advanced Care Planning: Is patient decisional?: No Code Status: No CPR, intubation ok POA: Rio Foster is proxy Plan: Family continues to agree that Lisbeth would not want to live in a dependent state as she is currently in and would want to allow for a natural as her wishes. They are making final decisions today with potential plans to change to comfort care only. Subjective: non verbal Objective: Vital Signs Temp Pulse Resp BP Pulse Ox 38.3 C 80 16 132/63 H 96 04/21/17 12:00 04/21/17 12:00 04/21/17 12:00 04/21/17 12:00 04/21/17 12:00 Laboratory Results 04/19/17 04:12 04/19/17 04:12 04/20/17 04/21/17 04/22/17 05:59 05:59 05:59 Intake Total 2712 2330 Output Total 1400 2510 Balance 1312 -180 PT 12.6 SEC (12.0-15.0) 04/08/17 16:58 INR 0.92 (0.83-1.16) 04/08/17 16:58 ICD10 Worksheet Patient Problems: Problems Problem Status Onset Acute cerebral hemorrhage Acute Palliative care encounter Acute - ICD10 Problem Qualifiers (1) Palliative care encounter
--- NOTE | 2017-04-21 13:43 | HOSPPROG ---
Hospitalist Progress Note Assessment/Plan: * Brainstem hemorrhagic stroke -appreciate Dr. 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 hospice * Aspiration Pneumonia -IV Unasyn * Volume overload -lasix * Hypernatremia -increased free water with tube feeds * Dysphagia - tube feeds -will likely need PEG if continued care * HTN -needs improved control -increase metoprolol, lisinopril * EKG changes with troponin elevation -possible ACS - but not candidate for intervention at this time * Fevers - ? central -recheck BC * Morbid obesity BMI 40 Subjective: No change Objective: Vital Signs Temp Pulse Resp BP Pulse Ox 38.3 C 80 16 132/63 H 96 04/21/17 12:00 04/21/17 12:00 04/21/17 12:00 04/21/17 12:00 04/21/17 12:00 Laboratory Results 04/19/17 04:12 04/19/17 04:12 04/20/17 04/21/17 04/22/17 05:59 05:59 05:59 Intake Total 2712 2330 Output Total 1400 2510 Balance 1312 -180 PT 12.6 SEC (12.0-15.0) 04/08/17 16:58 INR 0.92 (0.83-1.16) 04/08/17 16:58 d/w Dr. Menchaca - family still discussing options tele reviewed - NSR - Physical Exam Constitutional: no apparent distress, appears nourished, not in pain Cardiovascular: regular rate and rhythym, no murmur, rub, or gallop Respiratory: no respiratory distress, no rales or rhonchi, clear to auscultation Gastrointestinal: normoactive bowel sounds, soft, non-tender abdomen, no palpable masses Skin: no rashes or abrasions, no fluctuance, no induration Psychiatric: other (awake alert and appropriate with eye movements), No encephalopathic, No agitated ICD10 Worksheet Patient Problems: Problems Problem Status Onset Acute cerebral hemorrhage Acute Palliative care encounter Acute
--- NOTE | 2017-04-21 15:10 | PDINTPN ---
Insurance Inspector Progress Note Assessment/Plan: Assessment/Plan * Pontine CVA: Neuro status is better, excellence leader, following commands. However prognosis for independent function remains poor. Neurology to re-evaluate tomorrow. * Pneumonia. Left lower lobe, possibly right as well. Chest x-ray improved. Cultures negative to date. MSSA in sputum, presumably aspirated: on unasyn. * Respiratory failure: Intubated 04/15. Currently on CPAP On 40% FiO2. Minimal pulmonary secretions. Nasal secretions appear to be improving. Patient unable to protect own airway -will change back to IMV ventilation * HTN: Blood pressure significantly lower since intubation, however creeping back up today. Will increase metoprolol to 25 mg twice daily, add low-dose lisinopril. Will decrease Lasix to once per day per tube. * Anemia: Mild. Stable at 34. Follow intermittently. * Hypernatremia: Improved. Last 147... On free water flushes * Nutrition: On tube feedings * DVT prophylaxis: SCDs, enoxaparin. * Do not resuscitate * Disposition-will have family meeting later on this morning. Anticipate withdrawal of support, as prognosis is grim for meaningful recovery. I had a long discussion with the family, in particular his son and daughter, about patient's poor prognosis. Options at this point her limited. It is their wish that patient be extubated and see how she does off mechanical ventilation. It is agreed that will make her do not resuscitate, in particular do not reintubate, if she does not do well off mechanical ventilation. We will abide by their wishes. Objective: Vital Signs Temp Pulse Resp BP Pulse Ox 38.2 C 78 16 119/60 98 04/21/17 14:00 04/21/17 14:00 04/21/17 14:00 04/21/17 14:00 04/21/17 14:00 Laboratory Results 04/19/17 04:12 04/19/17 04:12 04/20/17 04/21/17 04/22/17 05:59 05:59 05:59 Intake Total 2712 2330 Output Total 1400 2510 Balance 1312 -180 PT 12.6 SEC (12.0-15.0) 04/08/17 16:58 INR 0.92 (0.83-1.16) 12/05/17 16:58 ICD10 Worksheet Patient Problems: Problems Problem Status Onset Acute cerebral hemorrhage Acute Palliative care encounter Acute
--- NOTE | 2017-04-21 15:29 | ASMTCMCOM ---
CM Note CM Note Notes: Family met with Maths Tutor and Palliative Care RN. Deciding to extubate, comfort measures, possible PEG tube. Family living [place] and were retained from coming to [place]. Sister from [place] here to help support patient's children. Date Signed: 04/21/2017 03:29 PM Electronically Signed By:Sonja Herrera LCSW
[2017-04-21 16:30] VITALS: BP 151/68; RESP 36; TEMP 99.9
[2017-04-21] MEDS ORDERED: IPRATROPIUM/ALBUTEROL 3 ML DEYVIAL IH SCH (17:00)
--- NOTE | 2017-04-21 17:41 | PDINTPN ---
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 However prognosis for independent function remains poor. Neurology to re-evaluate tomorrow. * Pneumonia. Left lower lobe, possibly right as well. Chest x-ray improved. Cultures negative to date. MSSA in sputum, presumably aspirated: on unasyn. * Respiratory failure: Intubated 04/15. Currently on CPAP On 40% FiO2. Minimal pulmonary secretions. Nasal secretions appear to be improving. Patient unable to protect own airway -will change back to IMV ventilation * HTN: Blood pressure significantly lower since intubation, however creeping back up today. Will increase metoprolol to 25 mg twice daily, add low-dose lisinopril. Will decrease Lasix to once per day per tube. * Anemia: Mild. Stable at 34. Follow intermittently. * Hypernatremia: Improved. Last 147... On free water flushes * Nutrition: On tube feedings * DVT prophylaxis: SCDs, enoxaparin. * Do not resuscitate * Disposition-will have family meeting later on this morning. Anticipate withdrawal of support, as prognosis is grim for meaningful recovery. Patient currently struggling and uncomfortable off mechanical ventilation. Is the family's wish that all support be withdrawn and patient be made comfortable. We will abide by their wishes. Objective: Vital Signs Temp Pulse Resp BP Pulse Ox 37.7 C 90 36 H 151/68 H 94 04/21/17 16:00 04/21/17 16:00 04/21/17 16:00 04/21/17 16:00 04/21/17 16:00 Laboratory Results 04/19/17 04:12 04/19/17 04:12 04/20/17 04/21/17 04/22/17 05:59 05:59 05:59 Intake Total 2712 2330 Output Total 1400 2510 Balance 1312 -180 PT 12.6 SEC (12.0-15.0) 04/08/17 16:58 INR 0.92 (0.83-1.16) 04/08/17 16:58 ICD10 Worksheet Patient Problems: Problems Problem Status Onset Acute cerebral hemorrhage Acute Palliative care encounter Acute
[2017-04-21] MEDS ORDERED: LORazepam 2 MG/ML INJ IVP PRN (17:43)
[2017-04-21] MEDS: LORazepam 2 MG/ML INJ IVP PRN ×3 (17:45→22:07)
[2017-04-21] MEDS ORDERED: LORazepam 2 MG/ML INJ ONE (17:46)
[2017-04-22] MEDS: LORazepam 2 MG/ML INJ IVP PRN (00:04)
[2017-04-22 02:09] VITALS: PULSE 65; O2SAT 56
--- NOTE | 2017-04-22 17:47 | ASDISCHSUM ---
Discharge Information Plan Status: Medically Cleared to Leave:04/21/2017 Discharge Date:04/22/2017 02:15 AM CM D/C Disposition: ADT D/C Disposition: Projected Discharge Date:04/22/2017 12:00 AM Transportation at D/C: Discharge Delay Reason: Follow-Up Date:04/22/2017 12:00 AM Discharge Slot: Final Diagnosis:Stroke Placement Information Patient Contact Information Contact Name:SAEJUANA Relationship: Address:[address] City:[place] Alternate Phone: [facility]/Zip Code:[place] [address] Email: Financial Information Financial Class:Self-Pay Primary Plan Desc:SELF PAY Primary Plan Number: Secondary Plan Desc: Secondary Plan Number: Assessment Information [facility] Initial CM Assessment Living Arrangements What is your living Answers: With Spouse arrangement? Who do you live with? Type Of Residence What kind of residence do Answers: House you live in? Discharge Plan Comments Coordination Status Comments Notes: Patient is a 51yo female who presented to the ED with right facial numbness and right upper and lower extremity weakness. Patient was admitted to the hospital for hemorrhagic stroke. Patient is not a surgical candidate. She has had some improvement overnight. PT/OT/SPL/Inpat rehab have all been ordered. D/C needs TBD. CM will follow. Date Signed: 04/09/2017 02:33 PM Electronically Signed By:Aggie Amador LCSW [facility] CM Progress Note CM Note CM Note Notes: Patient is alert for longer times but overall not much change. Patient remains on the BiPap to eliminate snoring. Therapies have not been able to evaluate yet. D/C needs remain TBD. CM will follow. Date Signed: 04/11/2017 12:47 PM Electronically Signed By:Aggie Amador LCSW [facility] CM Progress Note CM Note CM Note Notes: Patient's family has requested assistance with letters for family members who want to visit from [place]. This request was made at the end of the day and will have to be addressed on Friday. The family was informed they need to gather the information on family members and where the letters will be going and bring that in on Friday. CM will follow. Date Signed: 04/11/2017 04:59 PM Electronically Signed By:Aggie Amador LCSW [facility] Progress Note CM Note CM Note Notes: 51 year old female had a brain stem stroke-untreated HTN. Daughter asked for a letter for patient's mother and brother who live in [place] to come and be by her side. Letter written and signed by Leather Polisher. Patient getting close to needed intubation, Palliative Mtg at 1:00 with extended family present. Unfortunately, patient is not a citizen and doesn't have insurance to assist when she leaves the hospital setting. Care would fall to her family. Date Signed: 04/15/2017 11:24 AM Electronically Signed By:Sonja Herrera LCSW [facility] Progress Note CM Note CM Note Notes: Patient's daughter, Maddi asked for a letter to help her father, patient's , come to the [facility] to pay his respects and support patient. Letter was prepared and low vision therapist, Dr Gillespie signed. A copy of the letter is in the medical record. CM will follow for any further d/c needs. Date Signed: 04/17/2017 09:38 AM Electronically Signed By:Aggie Amador LCSW [facility] CM Progress Note CM Note CM Note Notes: Patient opens eyes, seems to be tracking, follows commands, c-pap trials, tube feeds, BM, wound care for nose. Had a Neuro consult. Plan for extubation in near future. Family will have to decide about PEG tube? Re-intubation in the future if needed? How to care for her in the future? Date Signed: 04/20/2017 04:22 PM Electronically Signed By:Sonja Herrera LCSW [facility] Progress Note CM Note CM Note Notes: Family met with Leather Polisher and Palliative Care RN. Deciding to extubate, comfort measures, possible PEG tube. Family living in [place] and were retained from coming to [place]. Sister from [place] here to help support patient's children. Date Signed: 04/21/2017 03:29 PM Electronically Signed By:Sonja Herrera LCSW Intervention Information
--- NOTE | 2017-04-23 02:14 | GDS ---
[f rep st] DISCHARGE SUMMARY SUMMARY: DIAGNOSES: 1. Brainstem hemorrhagic stroke. 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 3. Acute respiratory failure. 4. Aspiration pneumonia. 5. Dysphagia. 6. Untreated hypertension. 7. Morbid obesity. BMI 40. HISTORY: The patient is a 51-year-old female, who had essential hypertension that was untreated comi ng in with a brainstem hemorrhagic stroke that was quite devastating. She was intubated. They attem pted extubation once successfully and she was intubated a second time. Neurology felt her neuro prog nosis was pseudo locked-in syndrome. She was able to follow some commands. She appeared to be cogni tively there but she would be unable to breathe or eat without a trach and a PEG. Family was clear t hat previous conversations with her revealed she would never want this type of lifestyle and dependen cy on her family. Decision was made to extubate and not reintubate if she failed. Shortly after her second extubation, she rapidly worsened and developed recurrent respiratory failure and she was not reintubated per family wishes. She at 2:15 a.m., April 22. /[id number]/MODL
== END 2017-04-22 02:15 | disposition expired | DRG 64 ==
LOC: EDUNIT# → F2N 19:06
PROVIDERS: ADMIT Hospitalist; ATTEND Hospitalist
PROC: 0BH18EZ Insertion of Endotracheal Airway into Trachea, Via Natural or Artificial Opening Endoscopic (ICD-10-PCS; 2017-04-08)
PROC: 5A1935Z Respiratory Ventilation, Less than 24 Consecutive Hours (ICD-10-PCS; 2017-04-08)
PROC: 03HC33Z Insertion of Infusion Device into Left Radial Artery, Percutaneous Approach (ICD-10-PCS; 2017-04-08)
PROC: 03H333Z Insertion of Infusion Device into Right Subclavian Artery, Percutaneous Approach (ICD-10-PCS; 2017-04-08)
PROC: 0B968ZZ Drainage of Right Lower Lobe Bronchus, Via Natural or Artificial Opening Endoscopic (ICD-10-PCS; principal; 2017-04-15)
PROC: 0BH18EZ Insertion of Endotracheal Airway into Trachea, Via Natural or Artificial Opening Endoscopic (ICD-10-PCS; principal; 2017-04-15)
PROC: 5A1955Z Respiratory Ventilation, Greater than 96 Consecutive Hours (ICD-10-PCS; principal; 2017-04-15)
PROC: 0B9B8ZZ Drainage of Left Lower Lobe Bronchus, Via Natural or Artificial Opening Endoscopic (ICD-10-PCS; principal; 2017-04-15)
DX: I61.0 Nontraumatic intracerebral hemorrhage in hemisphere, subcortical (principal); I10 Essential (primary) hypertension; G81.90 Hemiplegia, unspecified affecting unspecified side; R47.01 Aphasia; H53.8 Other visual disturbances; G83.5 Locked-in state; E87.0 Hyperosmolality and hypernatremia; J96.01 Acute respiratory failure with hypoxia; J69.0 Pneumonitis due to inhalation of food and vomit; R94.31 Abnormal electrocardiogram [ECG] [EKG]; E66.9 Obesity, unspecified; Z68.41 Body mass index [BMI] 40.0-44.9, adult; G47.33 Obstructive sleep apnea (adult) (pediatric); F17.210 Nicotine dependence, cigarettes, uncomplicated; D64.9 Anemia, unspecified; Z51.5 Encounter for palliative care; Z66 Do not resuscitate; R29.720 NIHSS score 20
CPT/HCPCS: 82947-QW; 92610-GN; 97110-GP; 97112-GO; 97161-GP; 97167-GO; 97530-GO; 97530-GP; A9585; J0153; J0330; J1335; J1650; J1815; J1940; J2060; J2250; J2543; J2704; J3010; J3370; J3475; J3490; Q9967